=== PATIENT | female | born 1965 | race African-American/Black ===

== ENCOUNTER → 2017-01-02 | Outpatient (CLI) | payer OTHER ==
[~2017-01-02] MED LIST: SUPPLEMENTS; supplements
--- NOTE | 2017-01-02 15:26 | EKG ---
[facility] [address] [place] [address] Test Date: 2017-01-02 Test Time: 15:32:17 Pat Name: SOBEIDA FLANAGAN Department: Room: Gender: F Expedition Supervisor: MR ODELLB: 1965 Requested By: SUKHJINDER GREENWOOD Order Number: [id number] Reading MD: Wilbur Villagomez Measurements Intervals [place] Rate: 58 P: 51 MN: 132 QRS: 15 QRSD: 86 T: 20 QT: 396 QTc: 392 Interpretive Statements SINUS RHYTHM Electronically Signed On 01-03-2017 14:15:57 CDT by Wilbur Villagomez
[2017-01-02 15:45] LABS: BILIRUBIN,URINE NEGATIVE (NEG); GLUCOSE,URINE NEGATIVE (NEG); NITRITE,URINE NEGATIVE (NEG); PH,URINE 7.5; PROTEIN,URINE NEGATIVE (NEG-TRACE); UROBILINOGEN,URINE 0.2 mg/dL (0.2 mg/dL)
[2017-01-02 15:54] LABS: BACTERIA,URINE FEW /HPF (0-FEW); RBC,URINE 0 /HPF (0-2); SQUAMOUS EPITHELIAL CELL,UR FEW /LPF; WBC,URINE 0 /HPF (0-4)
[2017-01-02 16:09] LABS: ALBUMIN 3.9 g/dL (3.4-5.0); ALBUMIN/GLOBULIN RATIO 1.1 (1.0-1.7); CALCIUM 9.3 mg/dL (8.5-10.1); CREATININE 0.9 mg/dL (0.6-1.0); GFR 80.5; POTASSIUM 3.8 mmol/L (3.5-5.1); TOTAL BILIRUBIN 0.3 mg/dL (0.2-1.0); TOTAL PROTEIN 7.5 g/dL (6.4-8.2)
--- NOTE | 2017-01-03 09:28 | RAD ---
Chest, 2 views, 01/02/2017: History: Preop for hysterectomy The heart size and pulmonary vascularity are normal. No pulmonary infiltrates are seen. There is no evidence of pleural fluid. Surgical clips are projected over the left lower chest laterally. Minimal spurring is present in the spine. IMPRESSION: No acute cardiopulmonary abnormality is detected.
== END | disposition home or self-care (01) ==
LOC: SURGPAT 14:20
PROVIDERS: ATTEND Obstetrics & Gynecology
DX: Z01.818 Encounter for other preprocedural examination (principal)
CPT/HCPCS: 36415; 71020; 80053; 81001; 93005

== ENCOUNTER 2019-10-28 23:35 | Inpatient (IN) | payer OTHER ==
[~2019-10-28] VITALS: Ht 167.6 cm; Wt 85.7 kg
[2019-10-28 23:38] VITALS: BP 149/65
[2019-10-29] VITALS (12 sets, daily range): BP systolic 101–124; BP diastolic 52–68
--- NOTE | 2019-10-29 00:15 | NUR ---
ADMIT NOTE The patient, SOBEIDA FLANAGAN, 54 y/o, F admitted by ELIU DE LA ROSA III, DO, was given written information regarding hospital policies, unit procedures and contact persons. Patient arrived via EMS from [facility]. Patient afebrile, A&O, and VSS upon admission to unit. Patient orientated to room, admit packet reviewed and plan of care discussed. Patient's belongings were checked and left at bedside. MD notified of patient's arrival to floor and awaiting orders. Patient in bed, bed in lowest/locked position, and call light within reach; no other needs voiced at this time.
[2019-10-29] MEDS ORDERED: 0.9 % SODIUM CHLORIDE 10 ML DISP.SYRIN. IV PRN (00:30)
[2019-10-29] MEDS: IV NORMAL SALINE 1000ML BAG 1,000 ML IV SCH ×3 (00:58→20:21)
[2019-10-29] MEDS: ONDANSETRON PF 4 MG/2 ML VIAL. IV PRN (00:59)
[2019-10-29] MEDS: MORPHINE SULFATE 2 MG/ML VIAL. IV PRN ×6 (00:59→20:24)
[2019-10-29] MEDS ORDERED: [UNRECOGNIZED DRUG - OTHER] (02:52)
[2019-10-29] MEDS ORDERED: CREATINE (02:52)
[2019-10-29] MEDS ORDERED: TURM538C PO (02:52)
[2019-10-29] MEDS ORDERED: ACET325T9 PO (02:52)
[2019-10-29] MEDS ORDERED: Protein Supplement (02:52)
[2019-10-29] MEDS ORDERED: DULO30CA2 PO (02:52)
--- NOTE | 2019-10-29 07:58 | PDOC2 ---
CONSULT Date of Consult Date of Consult DATE: 10/29/19 TIME: 07:55 History of Present Illness Reason for Visit: The patient is a 54 year old female who was transferred from [facility] with suspected appendicitis. She states she noticed abdominal pain starting yesterday morning. The pain was located in the lower abdomen and is now in the RLQ. She reports associated nausea, vomiting, and no fevers. Her ER evaluation is consistent with appendicitis and she was transferred to [facility]. Past Medical History Past Medical History denies Past Surgical History Past Surgical History Csection, abdominoplasty Social History No Current Medications Current Medications Current Medications Sodium Chloride (Normal Saline Flush) 3 ml QSHIFT PRN IV AFTER MEDS AND BLOOD DRAWS Last administered on 10/29/19at 00:59; Start 10/29/19 at 00:30 Sodium Chloride 1,000 ml @ 100 mls/hr Q10H IV Last administered on 10/29/19at 00:58; Start 10/29/19 at 00:30 Ondansetron HCl (Zofran) 4 mg PRN Q6HRS PRN IV NAUSEA/VOMITING Last administered on 10/29/19at 00:59; Start 10/29/19 at 00:30 Morphine Sulfate (Morphine Sulfate) 2 mg PRN Q2HR PRN IV PAIN Last administered on 10/29/19at 04:51; Start 10/29/19 at 00:30 Active Scripts Active Reported Tylenol (Acetaminophen) 325 Mg Tablet 650 Mg PO PRN Q6HRS PRN [Protein Supplement] [Creatine Supplement] [BCAAs Supplement] Turmeric (Turmeric Root Extract) 538 Mg Capsule 538 Mg PO DAILY Cymbalta (Duloxetine Hcl) 30 Mg Capsule. 1 Cap PO HS [many supplements] [supplements] Allergies Allergies: Coded Allergies: meloxicam (Verified Allergy, Unknown, Swelling, 01/02/17) sulfamethoxazole (Verified Allergy, Unknown, Hives, 01/02/17) trimethoprim (Verified Allergy, Unknown, Hives, 01/02/17) ROS General: No: Chills, Night Sweats, Fatigue, Malaise, Appetite, Other PSYCHOLOGICAL ROS: No: Anxiety, Behavioral Disorder, Concentration difficultie, Decreased libido, Depression, Disorientation, Hallucinations, Hostility, Irritablity, Memory difficulties, Mood Swings, Obsessive thoughts, Physical abuse, Sexual abuse, Sleep disturbances, Suicidal ideation, Other Eyes: No Blurry vision, No Decreased vision, No Double vision, No Dry eyes, No Excessive tearing, No Eye Pain, No Itchy Eyes, No Loss of vision, No Photophobia, No Scotomata, No Uses contacts, No Uses glasses, No Other HEENT: No: Heacaches, Visual Changes, Hearing change, Nasal congestion, Nasal discharge, Oral lesions, Sinus pain, Sore Throat, Epistaxis, Sneezing, Snoring, Tinnitus, Vertigo, Vocal changes, Other ALLERGY AND IMMUNOLOGY: No: Hives, Insect Bite Sensitivity, Itchy/Watery Eyes, Nasal Congestion, Post Nasal Drip, Seasonal Allergies, Other Hematological and Lymphatic: No: Bleeding Problems, Blood Clots, Blood Transfusions, Brusing, Night Sweats, Pallor, Swollen Lymph Nodes, Other Respiratory: No: Cough, Hemoptysis, Orthopnea, Pleuritic Pain, Shortness of breath, SOB with excertion, Sputum Changes, Stridor, Tachypnea, Wheezing, Other Cardiovascular: No Chest Pain, No Palpitations, No Orthopnea, No Paroxysmal Noc. Dyspnea, No Edema, No Lt Headedness, No Other Gastrointestinal: Yes Vomiting, Yes Abdominal Pain Genitourinary: No Dysuria, No Frequency, No Incontinence, No Hematuria, No Retention, No Discharge, No Urgency, No Pain, No Flank Pain, No Other, No , No , No , No , No , No , No Musculoskeletal: No Gait Disturbance, No Joint Pain, No Joint Stiffness, No Joint Swelling, No Muscle Pain, No Muscular Weakness, No Pain In:, No Swelling In:, No Other Neurological: No Behavorial Changes, No Bowel/Bladder ControlChng, No Confusion, No Dizziness, No Gait Disturbance, No Headaches, No Impaired Coord/balance, No Memory Loss, No Numbness/Tingling, No Seizures, No Speech Problems, No Tremors, No Visual Changes, No Weakness, No Other Skin: No Dry Skin, No Eczema, No Hair Changes, No Lumps, No Mole Changes, No Mottling, No Nail Changes, No Pruritus, No Rash, No Skin Lesion Changes, No Other, No Acne Physical Exam General: Alert, Oriented X3, Cooperative HEENT: Atraumatic Lungs: Clear to auscultation Abdomen: Soft (tender with palpation in RLQ) Extremities: No clubbing, No cyanosis Skin: No rashes, No breakdown Neuro: Normal speech, Strength at 5/5 X4 ext Psych/Mental Status: Mental status NL Vitals VITALS Vital Signs Date Time Temp Pulse Resp B/P (MAP) Pulse Ox O2 Delivery O2 Flow Rate FiO2 10/29/19 07:00 98.4 87 18 116/67 (83) 96 Room Air 98.4 Labs Labs Laboratory Tests Test 10/29/19 01:05 SARS-CoV-2 Antigen (Rapid) Negative (NEGATIVE) Laboratory Tests Test 10/29/19 01:05 SARS-CoV-2 Antigen (Rapid) Negative (NEGATIVE) Assessment/Plan Assessment/Plan 54 year old female with abdominal pain, evaluation consistent with appendicitis. Recommend laparoscopic appendectomy. The details and risks of surgery were discussed. She understands and would like to proceed. KASHIF GARDNER MD Oct 29, 2019 07:58
[2019-10-29] MEDS ORDERED: PROPOFOL 10 MG/ML (20ML) VIAL. IV ONE (08:08)
[2019-10-29] MEDS ORDERED: MIDAZOLAM HCL/PF 2 MG/2 ML VIAL. ONE (08:08)
[2019-10-29] MEDS ORDERED: LIDOCAINE 2% PF 5 ML VIAL. ONE (08:08)
[2019-10-29] MEDS ORDERED: ROCURONIUM 50 MG/5 ML VIAL. ONE (08:08)
[2019-10-29] MEDS ORDERED: fentaNYL PF VIAL 250 MCG/5 ML VIAL ONE (08:09)
[2019-10-29] MEDS ORDERED: fentaNYL PF VIAL 100 MCG/2 ML VIAL ONE (08:24)
[2019-10-29] MEDS: fentaNYL PF VIAL 100 MCG/2 ML VIAL IVP PRN ×2 (08:39→10:50)
[2019-10-29] MEDS ORDERED: IV RINGERS,LACTATED 1000ML 1,000 ML IV SCH (08:57)
--- NOTE | 2019-10-29 08:58 | HP ---
ADMIT DATE: 10/29/2019 CHIEF COMPLAINT: Abdominal pain. HISTORY OF PRESENT ILLNESS: The patient is a pleasant 54-year-old female who presented to the OR with abdominal pain. She initially went to [facility]. They imaged her. She has appendicitis. She has now been transferred to our facility. We have consulted Dr. Bijan Webb and the patient is going for laparoscopic appendectomy later today. PAST MEDICAL HISTORY: Abdominoplasty and . ALLERGIES: MELOXICAM, SULFA, AND TRIMETHOPRIM. FAMILY HISTORY: Diabetes. SOCIAL HISTORY: She does not drink, smoke, or take drugs. MEDICATIONS: Reviewed, please refer to the MRAD. REVIEW OF SYSTEMS: GENERAL: No history of weight change, weakness or fevers. SKIN: No bruising, hair changes or rashes. EYES: No blurred, double or loss of vision. NOSE AND THROAT: No history of nosebleeds, hoarseness or sore throat. HEART: No history of palpitations, chest pain or shortness of breath on exertion. LUNGS: Denies cough, hemoptysis, wheezing or shortness of breath. GASTROINTESTINAL: She complains of abdominal pain. GENITOURINARY: No history of frequency, urgency, hesitancy or nocturia. NEUROLOGIC: Denies history of numbness, tingling, tremor or weakness. PSYCHIATRIC: No history of panic, anxiety or depression. ENDOCRINE: No history of heat or cold intolerance, polyuria or polydipsia. EXTREMITIES: Denies muscle weakness, joint pain, pain on walking or stiffness. PHYSICAL EXAMINATION: VITALS: Within normal limits and are stable. GENERAL: No apparent distress. Alert and oriented. HEENT: Normal cephalic atraumatic, external auditory canals are patent EYES: Extraocular muscles are intact, pupils are equally round and reactive to light and accommodation MUSCULOSKELETAL: Well developed, well nourished, good range of motion ENDOCRINE: No thyromegaly was palpated LYMPHATICS: No cervical chain or axillary nodes were noted HEMATOPOIETIC: No bruising NECK: Supple, no JVD, no thyromegaly was noted. LUNGS: Clear to auscultation in all lung arce without rhonchi or wheezing. HEART: RRR, S1, S2 present. Peripheral pulses intact, no obvious murmurs were noted. ABDOMEN: She has right lower quadrant tenderness with decreased bowel sounds. EXTREMITIES: Without any cyanosis, clubbing, or edema. Pedal pulses intact, Homans sign is negative. NEUROLOGIC: Normal speech, normal tone. A & O x3, moves all extremities, no obvious focal deficits. PSYCHIATRIC: Normal affect, normal mood. Stable. SKIN: No ulcerations or rashes, good skin turgor, no jaundice. VASCULAR: Good capillary refill, neurovascular bundle appears to be intact. ASSESSMENT AND PLAN: Appendicitis. The patient has been admitted, was given IV antibiotics, pain meds, IV fluids. We have consulted Dr. Webb. She is going to surgery later today. DVT prophylaxis. ELIU DE LA ROSA DO DR: LEFTY/heather JOB#: [id number] / [id number]
[2019-10-29] MEDS ORDERED: PROCHLORPERAZINE 10 MG/2 ML VIAL. IV PRN (09:00)
[2019-10-29] MEDS ORDERED: ONDANSETRON PF 4 MG/2 ML VIAL. IV PRN (09:00)
[2019-10-29] MEDS ORDERED: fentaNYL PF VIAL 100 MCG/2 ML VIAL IV PRN ×2 (09:00)
[2019-10-29] MEDS ORDERED: BUPIVACAINE-EPI 0.5%-1:200000 MPF 30 ML VIAL. ONE (09:03)
[2019-10-29] MEDS ORDERED: NEOSTIGMINE METHYLSULFATE 5 MG/5 ML SYRINGE. ONE (09:48)
[2019-10-29] MEDS ORDERED: GLYCOPYRROLATE 1 MG/5 ML VIAL. ONE (09:48)
--- NOTE | 2019-10-29 10:02 | NUR ---
SW following. Discussed with RN, pt from home, room air, NPO, COVID-9 negative. Pt having lap appy this morning. RN advised no SW needs at this time. SW will continue to follow should any discharge needs arise.
[2019-10-29] MEDS ORDERED: PHENYLEPHRINE in 0.9% NACL PF 1 MG/10 ML SYRINGE. IV ONE (10:04)
[2019-10-29] MEDS ORDERED: SEVOFLURANE 31 TO 60 MINUTES. IH ONE (10:27)
--- NOTE | 2019-10-29 10:56 | PDOC4 ---
Operative Note Operative Note Preoperative Diagnosis: Acute Appendicitis Postoperative Diagnosis: Perforated appendicitis Procedure: Laparoscopic appendectomy Surgeon: Jon Anesthesia: Gen. EBL: 10 mL Specimen: Appendix to pathology Drains: None Complications: None Indication: The patient is a 54 year old female who reported to the emergency department with abdominal pain. The evaluation is consistent with acute appendicitis. The patient was offered surgical treatment with a laparoscopic appendectomy. The risks of surgery were discussed which include bleeding, infection, visceral injury, pain, anesthetic risk, potential need for additional surgery or procedure. The patient understands and would like to proceed. Description: The patient was taken to the operating room and placed supine on the operating table. Gen. anesthesia was performed. The abdomen was prepped with ChloraPrep and draped in a standard surgical manner. A supraumbilical incision was made through which a veress needle was inserted and a pneumoperitoneum was created. A visualized 5 mm trocar was inserted and the laparoscope was introduced. In the left lower quadrant a 5 mm trocar was inserted. In the suprapubic region a 12 mm trocar was inserted. The appendix was identified and appeared inflamed consistent with acute appendicitis. With minimal manipulation the appendix showed complete degradation with contamination consistent with perforation. The mesoappendix was bluntly from the appendix. The mesoappendix was controlled using several clips and it was divided. The 5 mm LLQ trocar was exchanged with a 12 mm trocar. The appendix was then amputated off the cecum using an Endo ISAURA 45 stapling device. The appendix was then placed in an endoscopic bag and extracted at the suprapubic incision site. The fascia there was closed with 0 Vicryl and infiltrated with half percent Marcaine with epinephrine. The entire abdominal cavity was irrigated with sterile saline to clean any contamination. The RLQ was visualized and the staple line appeared well intact and hemostasis was good. No other abnormalities were identified grossly. The remaining ports were removed and the pneumoperitoneum was relieved. The skin at all incision sites was closed with 4-0 Monocryl. Steri-Strips and dressings were applied. The patient tolerated the procedure well and was sent to the recovery room in stable condition. At the end of the case all counts were correct. KASHIF GARDNER MD Oct 29, 2019 10:56
[2019-10-29] MEDS ORDERED: MORPHINE SULFATE 2 MG/ML VIAL. ONE (10:57)
[2019-10-29] MEDS ORDERED: PROCHLORPERAZINE 10 MG/2 ML VIAL. ONE (11:02)
[2019-10-29] MEDS ORDERED: HYDROmorphone 2 MG/ML VIAL ONE (11:07)
[2019-10-29] MEDS: HYDROmorphone 2 MG/ML VIAL IV PRN ×3 (11:10→11:45)
[2019-10-29] MEDS: PIPERACILLIN/TAZOBACTAM 3.375 GM in IV NORMAL SALINE 50ML 50 ML IV SCH ×2 (13:15→17:22)
[2019-10-29] MEDS: oxyCODONE/APAP 5/325 1 TAB TABLET PO PRN (17:24)
[2019-10-30] MEDS: oxyCODONE/APAP 5/325 1 TAB TABLET PO PRN ×4 (00:31→19:50)
[2019-10-30] MEDS: PIPERACILLIN/TAZOBACTAM 3.375 GM in IV NORMAL SALINE 50ML 50 ML IV SCH ×4 (00:31→17:40)
[2019-10-30 03:00] VITALS: BP 92/47
[2019-10-30] MEDS: MORPHINE SULFATE 2 MG/ML VIAL. IV PRN ×3 (05:56→17:43)
[2019-10-30] MEDS: IV NORMAL SALINE 1000ML BAG 1,000 ML IV SCH ×2 (06:15→14:36)
[2019-10-30 07:00] VITALS: BP 106/55
--- NOTE | 2019-10-30 09:11 | PDOC ---
PROGRESS NOTES Date of Service: DATE: 10/30/19 TIME: 09:10 Chief Complaint Chief Complaint ASSESSMENT AND PLAN: Appendicitis. pod # 1 MORBID OBESITY PLAN admitted, IV antibiotics, pain meds, IV fluids. consulted Dr. Webb. DVT prophylaxis. D/W RN History of Present Illness History of Present Illness HISTORY OF PRESENT ILLNESS: The patient is a pleasant 54-year-old female who presented to the OR with abdominal pain. She initially went to [facility]. They imaged her. She has appendicitis. She has now been transferred to our facility. We have consulted Dr. Bijan Webb PAST MEDICAL HISTORY: Abdominoplasty and . ALLERGIES: MELOXICAM, SULFA, AND TRIMETHOPRIM. FAMILY HISTORY: Diabetes. SOCIAL HISTORY: She does not drink, smoke, or take drugs. Vitals Vitals Vital Signs Date Time Temp Pulse Resp B/P (MAP) Pulse Ox O2 Delivery O2 Flow Rate FiO2 10/30/19 08:21 Room Air 10/30/19 07:00 98.4 82 18 106/55 (72) 90 2.0 98.4 Physical Exam Physical Exam DRESSING DRY, INTACT General: Alert, Oriented X3, Cooperative, No acute distress Heart: Regular rate, Normal S1, Normal S2 Lungs: Clear Abdomen: Normal bowel sounds, Soft (tender with palpation in RLQ) Extremities: No clubbing, No cyanosis, No edema Skin: No rashes, No breakdown Comment Review of Relevant I have reviewed the following items sienna (where applicable) has been applied. Labs Laboratory Tests Test 10/29/19 01:05 Coronavirus (PCR) Not detected (Not Detected) SARS-CoV-2 Antigen (Rapid) Negative (NEGATIVE) Medications Current Medications Sodium Chloride (Normal Saline Flush) 3 ml QSHIFT PRN IV AFTER MEDS AND BLOOD DRAWS Last administered on 10/29/19at 00:59; Start 10/29/19 at 00:30 Sodium Chloride 1,000 ml @ 100 mls/hr Q10H IV Last administered on 10/30/19at 06:15; Start 10/29/19 at 00:30 Ondansetron HCl (Zofran) 4 mg PRN Q6HRS PRN IV NAUSEA/VOMITING Last administered on 10/29/19at 00:59; Start 10/29/19 at 00:30 Morphine Sulfate (Morphine Sulfate) 2 mg PRN Q2HR PRN IV PAIN Last administered on 10/30/19at 05:56; Start 10/29/19 at 00:30 Propofol (Diprivan) 200 mg STK-MED ONCE IV ; Start 10/29/19 at 08:08; Stop 10/29/19 at 08:08; Status DC Lidocaine HCl (Lidocaine Pf 2% Vial) 5 ml STK-MED ONCE .ROUTE ; Start 10/29/19 at 08:08; Stop 10/29/19 at 08:08; Status DC Rocuronium [place] (Zemuron) 50 mg STK-MED ONCE .ROUTE ; Start 10/29/19 at 08:08; Stop 10/29/19 at 08:08; Status DC Midazolam HCl (Versed) 2 mg STK-MED ONCE .ROUTE ; Start 10/29/19 at 08:08; Stop 10/29/19 at 08:08; Status DC Fentanyl Citrate (Fentanyl 5ml Vial) 250 mcg STK-MED ONCE .ROUTE ; Start 10/29/19 at 08:09; Stop 10/29/19 at 08:10; Status DC Fentanyl Citrate (Fentanyl 2ml Vial) 100 mcg STK-MED ONCE .ROUTE ; Start 10/29/19 at 08:24; Stop 10/29/19 at 08:24; Status DC Fentanyl Citrate (Fentanyl 2ml Vial) 50 mcg PACU PRN PRN IVP PAIN Last administered on 10/29/19at 10:50; Start 10/29/19 at 08:30; Stop 10/29/19 at 20:00; Status DC Ondansetron HCl (Zofran) 4 mg PRN Q6HRS PRN IV NAUSEA/VOMITING; Start 10/29/19 at 09:00; Stop 10/30/19 at 08:59; Status DC Fentanyl Citrate (Fentanyl 2ml Vial) 25 mcg PRN Q5MIN PRN IV MILD PAIN 1-3; Start 10/29/19 at 09:00; Stop 10/30/19 at 08:59; Status DC Fentanyl Citrate (Fentanyl 2ml Vial) 50 mcg PRN Q5MIN PRN IV MODERATE TO SEVERE PAIN; Start 10/29/19 at 09:00; Stop 10/30/19 at 08:59; Status DC Morphine Sulfate (Morphine Sulfate) 1 mg PRN Q10MIN PRN IV SEVERE PAIN 7-10 Last administered on 10/29/19at 11:20; Start 10/29/19 at 09:00; Stop 10/30/19 at 08:59; Status DC Ringer's Solution 1,000 ml @ 30 mls/hr Q24H IV ; Start 10/29/19 at 08:57; Stop 10/29/19 at 20:56; Status DC Hydromorphone HCl (Dilaudid) 0.5 mg PRN Q10MIN PRN IV SEV PAIN, Second choice Last administered on 10/29/19at 11:45; Start 10/29/19 at 09:00; Stop 10/30/19 at 08:59; Status DC Prochlorperazine Edisylate (Compazine) 5 mg PACU PRN PRN IV NAUSEA, MRX1 Last administered on 10/29/19at 10:55; Start 10/29/19 at 09:00; Stop 10/30/19 at 08:59; Status DC Cefazolin Sodium/ Dextrose 50 ml @ 100 mls/hr 1X ONCE IV Last administered on 10/29/19at 09:30; Start 10/29/19 at 09:00; Stop 10/29/19 at 09:29; Status DC Bupivacaine HCl/ Epinephrine Bitart (Sensorcain-Epi 0.5%-1:977338 Mpf) 30 ml STK-MED ONCE .ROUTE Last administered on 10/29/19at 09:42; Start 10/29/19 at 09:03; Stop 10/29/19 at 09:03; Status DC Neostigmine [place] (Neostigmine Methylsulfate) 5 mg STK-MED ONCE .ROUTE ; Start 10/29/19 at 09:48; Stop 10/29/19 at 09:48; Status DC Glycopyrrolate (Robinul) 1 mg STK-MED ONCE .ROUTE ; Start 10/29/19 at 09:48; Stop 10/29/19 at 09:48; Status DC Phenylephrine HCl (PHENYLEPHRINE in 0.9% NACL PF) 1 mg STK-MED ONCE IV ; Start 10/29/19 at 10:04; Stop 10/29/19 at 10:05; Status DC Sevoflurane (Ultane) 30 ml STK-MED ONCE IH ; Start 10/29/19 at 10:27; Stop 10/29/19 at 10:28; Status DC Oxycodone/ Acetaminophen (Percocet 5/325) 1 tab PRN Q4HRS PRN PO MODERATE PAIN; Start 10/29/19 at 11:00 Morphine Sulfate (Morphine Sulfate) 2 mg STK-MED ONCE .ROUTE ; Start 10/29/19 at 10:57; Stop 10/29/19 at 10:57; Status DC Piperacillin Sod/ Tazobactam Sod 3.375 gm/Sodium Chloride 50 ml @ 100 mls/hr Q6HRS IV Last administered on 10/30/19at 05:54; Start 10/29/19 at 12:00 Oxycodone/ Acetaminophen (Percocet 5/325) 2 tab PRN Q4HRS PRN PO SEVERE PAIN Last administered on 10/30/19at 08:16; Start 10/29/19 at 11:15 Prochlorperazine Edisylate (Compazine) 10 mg STK-MED ONCE .ROUTE ; Start 10/29/19 at 11:02; Stop 10/29/19 at 11:02; Status DC Hydromorphone HCl (Dilaudid) 2 mg STK-MED ONCE .ROUTE ; Start 10/29/19 at 11:07; Stop 10/29/19 at 11:07; Status DC Active Scripts Active Reported Tylenol (Acetaminophen) 325 Mg Tablet 650 Mg PO PRN Q6HRS PRN [Protein Supplement] [Creatine Supplement] [BCAAs Supplement] Turmeric (Turmeric Root Extract) 538 Mg Capsule 538 Mg PO DAILY Cymbalta (Duloxetine Hcl) 30 Mg Capsule. 1 Cap PO HS [many supplements] [supplements] Vitals/I & O Vital Sign - Last 24 Hours 10/29/19 10/29/19 10/29/19 10/29/19 10:43 10:43 10:50 11:00 Temp 98.8 98.8 Pulse 69 Resp 16 16 16 B/P (MAP) 109/55 Pulse Ox 96 95 99 O2 Delivery Mask Simple Mask Simple Mask Simple Mask O2 Flow Rate 10 10 10.0 10.0 10/29/19 10/29/19 10/29/19 10/29/19 11:00 11:10 11:14 11:20 Temp 98.8 98.8 98.8 98.8 Pulse 69 66 Resp 16 14 16 12 B/P (MAP) 98/62 106/55 Pulse Ox 100 95 99 98 O2 Delivery Simple Mask Simple Mask Nasal Cannula O2 Flow Rate 5 5.0 5.0 3.0 10/29/19 10/29/19 10/29/19 10/29/19 11:29 11:30 11:44 11:45 Temp 98.8 98.8 98.8 98.8 Pulse 67 75 Resp 16 13 16 14 B/P (MAP) 107/55 107/53 Pulse Ox 98 98 98 97 O2 Delivery Simple Mask Nasal Cannula Nasal Cannula Nasal Cannula O2 Flow Rate 3.0 3.0 3.0 3.0 10/29/19 10/29/19 10/29/19 10/29/19 12:15 12:30 12:45 13:00 Temp 98.0 97.7 98.4 98.0 98.0 97.7 98.4 98.0 Pulse 75 79 85 83 Resp 18 18 18 18 B/P (MAP) 101/57 (72) 106/57 (73) 106/56 (73) 106/60 (75) Pulse Ox 98 98 98 99 O2 Delivery Room Air Room Air Room Air Room Air 10/29/19 10/29/19 10/29/19 10/29/19 13:30 14:02 15:00 16:00 Temp 98.9 98.9 98.9 98.9 98.9 98.9 Pulse 80 83 84 82 Resp 18 18 18 18 B/P (MAP) 109/61 (77) 106/59 (75) 105/68 (80) 101/57 (72) Pulse Ox 99 98 99 99 O2 Delivery Room Air Room Air Room Air Room Air 10/29/19 10/29/19 10/29/19 10/29/19 16:49 17:19 17:24 18:30 O2 Delivery Nasal Cannula Room Air Room Air Room Air O2 Flow Rate 2.0 10/29/19 10/29/19 10/29/19 10/29/19 19:00 20:15 20:24 21:15 Temp 99.0 99.0 Pulse 86 Resp 19 B/P (MAP) 106/60 (75) Pulse Ox 92 O2 Delivery Room Air Room Air Room Air Room Air 10/29/19 10/30/19 10/30/1927/20 23:00 00:31 03:00 05:56 Temp 98.8 98.5 98.8 98.5 Pulse 82 74 Resp 19 19 B/P (MAP) 104/52 (69) 92/47 (62) Pulse Ox 93 96 O2 Delivery Nasal Cannula Nasal Cannula Nasal Cannula Nasal Cannula O2 Flow Rate 2.0 2.0 2.0 2.0 10/30/19 10/30/19 10/30/19 10/30/19 06:26 07:00 08:16 08:21 Temp 98.4 98.4 Pulse 82 Resp 18 B/P (MAP) 106/55 (72) Pulse Ox 90 O2 Delivery Room Air Nasal Cannula Room Air Room Air O2 Flow Rate 2.0 Intake and Output 10/29/19 10/29/19 10/30/19 15:00 23:00 07:00 Intake Total 1700 ml 50 ml 0 ml Output Total 120 ml Balance 1580 ml 50 ml 0 ml Justicifation of Admission Dx: Justifications for Admission: Justification of Admission Dx: Yes Comments: ACUTE APPENDICITIS MASHA ARTEAGA MD Oct 30, 2019 09:11
--- NOTE | 2019-10-30 10:18 | NUR ---
SW following. Discussed with RN, clear liquid diet, room air, IV zosyn. RN advised no SW needs, anticipates possible discharge home today. SW will continue to follow should any discharge needs arise.
[2019-10-30 11:00] VITALS: BP 106/56
[2019-10-30 12:01] LABS: BASO % 0 % (0-3); EOS % 0 % (0-3); HEMATOCRIT 35.3 % (36.0-47.0); HEMOGLOBIN 11.9 g/dL (12.0-15.5); LYMPH # 0.8 x10^3/uL (1.0-4.8); LYMPH % 11 % (24-48); MEAN CORPUSCULAR HEMOGLOBIN 29 pg (25-35); MEAN CORPUSCULAR HGB CONC 34 g/dL (31-37); MEAN CORPUSCULAR VOLUME 87 fL (79-100); MONO # 0.5 x10^3/uL (0.0-1.1); MONO % 7 % (0-9); NEUT # 6.1 x10^3/uL (1.8-7.7); NEUT % 81 % (31-73); PLATELET COUNT 260 x10^3/uL (140-400); RED BLOOD COUNT 4.06 x10^6/uL (3.50-5.40); RED CELL DISTRIBUTION WIDTH 13.7 % (11.5-14.5); WHITE BLOOD COUNT 7.5 x10^3/uL (4.0-11.0)
[2019-10-30 12:19] LABS: ALBUMIN 2.6 g/dL (3.4-5.0); ALBUMIN/GLOBULIN RATIO 0.7 (1.0-1.7); CALCIUM 8.1 mg/dL (8.5-10.1); CREATININE 1.2 mg/dL (0.6-1.0); GFR 57.1; POTASSIUM 3.4 mmol/L (3.5-5.1); TOTAL BILIRUBIN 0.4 mg/dL (0.2-1.0); TOTAL PROTEIN 6.5 g/dL (6.4-8.2)
--- NOTE | 2019-10-30 13:11 | PDOC ---
PROGRESS NOTES Date of Service DATE: 10/30/19 TIME: 13:10 Subjective Subjective feeling "better", taking some liquids, but feeling a bit bloated, no flatus Objective Objective Vital Signs Date Time Temp Pulse Resp B/P (MAP) Pulse Ox O2 Delivery O2 Flow Rate FiO2 10/30/19 12:24 Room Air 10/30/19 11:00 99.9 93 18 106/56 (73) 90 2.0 99.9 Intake and Output 10/30/19 07:00 Intake Total 1750 ml Output Total 120 ml Balance 1630 ml Intake Oral 150 ml IV Total 1600 ml Output Urine Total 110 ml Estimated Blood Loss 10 ml # Voids 1 Physical Exam Abdomen: Soft Assessment Assessment POD 1 Plan Plan of Care Plan to go slow with PO, would expect some degree of ileus; continue antibiotics Comment Review of Relevant I have reviewed the following items sienna (where applicable) has been applied. Labs Laboratory Tests Test 10/29/19 01:05 10/30/19 11:15 Coronavirus (PCR) Not detected (Not Detected) SARS-CoV-2 Antigen (Rapid) Negative (NEGATIVE) White Blood Count 7.5 x10^3/uL (4.0-11.0) Red Blood Count 4.06 x10^6/uL (3.50-5.40) Hemoglobin 11.9 g/dL (12.0-15.5) Hematocrit 35.3 % (36.0-47.0) Mean Corpuscular Volume 87 fL (79-100) Mean Corpuscular Hemoglobin 29 pg (25-35) Mean Corpuscular Hemoglobin Concent 34 g/dL (31-37) Red Cell Distribution Width 13.7 % (11.5-14.5) Platelet Count 260 x10^3/uL (140-400) Neutrophils (%) (Auto) 81 % (31-73) Lymphocytes (%) (Auto) 11 % (24-48) Monocytes (%) (Auto) 7 % (0-9) Eosinophils (%) (Auto) 0 % (0-3) Basophils (%) (Auto) 0 % (0-3) Neutrophils # (Auto) 6.1 x10^3/uL (1.8-7.7) Lymphocytes # (Auto) 0.8 x10^3/uL (1.0-4.8) Monocytes # (Auto) 0.5 x10^3/uL (0.0-1.1) Eosinophils # (Auto) 0.0 x10^3/uL (0.0-0.7) Basophils # (Auto) 0.0 x10^3/uL (0.0-0.2) Sodium Level 138 mmol/L (136-145) Potassium Level 3.4 mmol/L (3.5-5.1) Chloride Level 103 mmol/L (98-107) Carbon Dioxide Level 28 mmol/L (21-32) Anion Gap 7 (6-14) Blood Urea Nitrogen 12 mg/dL (7-20) Creatinine 1.2 mg/dL (0.6-1.0) Estimated GFR (Cockcroft-Gault) 57.1 BUN/Creatinine Ratio 10 (6-20) Glucose Level 112 mg/dL (70-99) Calcium Level 8.1 mg/dL (8.5-10.1) Total Bilirubin 0.4 mg/dL (0.2-1.0) Aspartate Amino Transf (AST/SGOT) 16 U/L (15-37) Alanine Aminotransferase (ALT/SGPT) 23 U/L (14-59) Alkaline Phosphatase 56 U/L (46-116) Total Protein 6.5 g/dL (6.4-8.2) Albumin 2.6 g/dL (3.4-5.0) Albumin/Globulin Ratio 0.7 (1.0-1.7) Laboratory Tests Test 10/30/19 11:15 White Blood Count 7.5 x10^3/uL (4.0-11.0) Red Blood Count 4.06 x10^6/uL (3.50-5.40) Hemoglobin 11.9 g/dL (12.0-15.5) Hematocrit 35.3 % (36.0-47.0) Mean Corpuscular Volume 87 fL (79-100) Mean Corpuscular Hemoglobin 29 pg (25-35) Mean Corpuscular Hemoglobin Concent 34 g/dL (31-37) Red Cell Distribution Width 13.7 % (11.5-14.5) Platelet Count 260 x10^3/uL (140-400) Neutrophils (%) (Auto) 81 % (31-73) Lymphocytes (%) (Auto) 11 % (24-48) Monocytes (%) (Auto) 7 % (0-9) Eosinophils (%) (Auto) 0 % (0-3) Basophils (%) (Auto) 0 % (0-3) Neutrophils # (Auto) 6.1 x10^3/uL (1.8-7.7) Lymphocytes # (Auto) 0.8 x10^3/uL (1.0-4.8) Monocytes # (Auto) 0.5 x10^3/uL (0.0-1.1) Eosinophils # (Auto) 0.0 x10^3/uL (0.0-0.7) Basophils # (Auto) 0.0 x10^3/uL (0.0-0.2) Sodium Level 138 mmol/L (136-145) Potassium Level 3.4 mmol/L (3.5-5.1) Chloride Level 103 mmol/L (98-107) Carbon Dioxide Level 28 mmol/L (21-32) Anion Gap 7 (6-14) Blood Urea Nitrogen 12 mg/dL (7-20) Creatinine 1.2 mg/dL (0.6-1.0) Estimated GFR (Cockcroft-Gault) 57.1 BUN/Creatinine Ratio 10 (6-20) Glucose Level 112 mg/dL (70-99) Calcium Level 8.1 mg/dL (8.5-10.1) Total Bilirubin 0.4 mg/dL (0.2-1.0) Aspartate Amino Transf (AST/SGOT) 16 U/L (15-37) Alanine Aminotransferase (ALT/SGPT) 23 U/L (14-59) Alkaline Phosphatase 56 U/L (46-116) Total Protein 6.5 g/dL (6.4-8.2) Albumin 2.6 g/dL (3.4-5.0) Albumin/Globulin Ratio 0.7 (1.0-1.7) Medications Current Medications Sodium Chloride (Normal Saline Flush) 3 ml QSHIFT PRN IV AFTER MEDS AND BLOOD DRAWS Last administered on 10/29/19at 00:59; Start 10/29/19 at 00:30 Sodium Chloride 1,000 ml @ 100 mls/hr Q10H IV Last administered on 10/30/19at 06:15; Start 10/29/19 at 00:30 Ondansetron HCl (Zofran) 4 mg PRN Q6HRS PRN IV NAUSEA/VOMITING Last administered on 10/29/19at 00:59; Start 10/29/19 at 00:30 Morphine Sulfate (Morphine Sulfate) 2 mg PRN Q2HR PRN IV PAIN Last administered on 10/30/19at 05:56; Start 10/29/19 at 00:30 Propofol (Diprivan) 200 mg STK-MED ONCE IV ; Start 10/29/19 at 08:08; Stop 10/29/19 at 08:08; Status DC Lidocaine HCl (Lidocaine Pf 2% Vial) 5 ml STK-MED ONCE .ROUTE ; Start 10/29/19 at 08:08; Stop 10/29/19 at 08:08; Status DC Rocuronium Prichard (Zemuron) 50 mg STK-MED ONCE .ROUTE ; Start 10/29/19 at 08:08; Stop 10/29/19 at 08:08; Status DC Midazolam HCl (Versed) 2 mg STK-MED ONCE .ROUTE ; Start 10/29/19 at 08:08; Stop 10/29/19 at 08:08; Status DC Fentanyl Citrate (Fentanyl 5ml Vial) 250 mcg STK-MED ONCE .ROUTE ; Start 10/29/19 at 08:09; Stop 10/29/19 at 08:10; Status DC Fentanyl Citrate (Fentanyl 2ml Vial) 100 mcg STK-MED ONCE .ROUTE ; Start 10/29/19 at 08:24; Stop 10/29/19 at 08:24; Status DC Fentanyl Citrate (Fentanyl 2ml Vial) 50 mcg PACU PRN PRN IVP PAIN Last administered on 10/29/19at 10:50; Start 10/29/19 at 08:30; Stop 10/29/19 at 20:00; Status DC Ondansetron HCl (Zofran) 4 mg PRN Q6HRS PRN IV NAUSEA/VOMITING; Start 10/29/19 at 09:00; Stop 10/30/19 at 08:59; Status DC Fentanyl Citrate (Fentanyl 2ml Vial) 25 mcg PRN Q5MIN PRN IV MILD PAIN 1-3; Start 10/29/19 at 09:00; Stop 10/30/19 at 08:59; Status DC Fentanyl Citrate (Fentanyl 2ml Vial) 50 mcg PRN Q5MIN PRN IV MODERATE TO SEVERE PAIN; Start 10/29/19 at 09:00; Stop 10/30/19 at 08:59; Status DC Morphine Sulfate (Morphine Sulfate) 1 mg PRN Q10MIN PRN IV SEVERE PAIN 7-10 Last administered on 10/29/19at 11:20; Start 10/29/19 at 09:00; Stop 10/30/19 at 08:59; Status DC Ringer's Solution 1,000 ml @ 30 mls/hr Q24H IV ; Start 10/29/19 at 08:57; Stop 10/29/19 at 20:56; Status DC Hydromorphone HCl (Dilaudid) 0.5 mg PRN Q10MIN PRN IV SEV PAIN, Second choice Last administered on 10/29/19at 11:45; Start 10/29/19 at 09:00; Stop 10/30/19 at 08:59; Status DC Prochlorperazine Edisylate (Compazine) 5 mg PACU PRN PRN IV NAUSEA, MRX1 Last administered on 10/29/19at 10:55; Start 10/29/19 at 09:00; Stop 10/30/19 at 08:59; Status DC Cefazolin Sodium/ Dextrose 50 ml @ 100 mls/hr 1X ONCE IV Last administered on 10/29/19at 09:30; Start 10/29/19 at 09:00; Stop 10/29/19 at 09:29; Status DC Bupivacaine HCl/ Epinephrine Bitart (Sensorcain-Epi 0.5%-1:[id number] Mpf) 30 ml STK-MED ONCE .ROUTE Last administered on 10/29/19at 09:42; Start 10/29/19 at 09:03; Stop 10/29/19 at 09:03; Status DC Neostigmine Prichard (Neostigmine Methylsulfate) 5 mg STK-MED ONCE .ROUTE ; Start 10/29/19 at 09:48; Stop 10/29/19 at 09:48; Status DC Glycopyrrolate (Robinul) 1 mg STK-MED ONCE .ROUTE ; Start 10/29/19 at 09:48; Stop 10/29/19 at 09:48; Status DC Phenylephrine HCl (PHENYLEPHRINE in 0.9% NACL PF) 1 mg STK-MED ONCE IV ; Start 10/29/19 at 10:04; Stop 10/29/19 at 10:05; Status DC Sevoflurane (Ultane) 30 ml STK-MED ONCE IH ; Start 10/29/19 at 10:27; Stop 10/29/19 at 10:28; Status DC Oxycodone/ Acetaminophen (Percocet 5/325) 1 tab PRN Q4HRS PRN PO MODERATE PAIN; Start 10/29/19 at 11:00 Morphine Sulfate (Morphine Sulfate) 2 mg STK-MED ONCE .ROUTE ; Start 10/29/19 at 10:57; Stop 10/29/19 at 10:57; Status DC Piperacillin Sod/ Tazobactam Sod 3.375 gm/Sodium Chloride 50 ml @ 100 mls/hr Q6HRS IV Last administered on 10/30/19at 12:22; Start 10/29/19 at 12:00 Oxycodone/ Acetaminophen (Percocet 5/325) 2 tab PRN Q4HRS PRN PO SEVERE PAIN Last administered on 10/30/19at 12:24; Start 10/29/19 at 11:15 Prochlorperazine Edisylate (Compazine) 10 mg STK-MED ONCE .ROUTE ; Start 10/29/19 at 11:02; Stop 10/29/19 at 11:02; Status DC Hydromorphone HCl (Dilaudid) 2 mg STK-MED ONCE .ROUTE ; Start 10/29/19 at 11:07; Stop 10/29/19 at 11:07; Status DC Active Scripts Active Reported Tylenol (Acetaminophen) 325 Mg Tablet 650 Mg PO PRN Q6HRS PRN [Protein Supplement] [Creatine Supplement] [BCAAs Supplement] Turmeric (Turmeric Root Extract) 538 Mg Capsule 538 Mg PO DAILY Cymbalta (Duloxetine Hcl) 30 Mg Capsule. 1 Cap PO HS [many supplements] [supplements] Vitals/I & O Vital Sign - Last 24 Hours 10/29/19 10/29/19 10/29/19 10/29/19 13:30 14:02 15:00 16:00 Temp 98.9 98.9 98.9 98.9 98.9 98.9 Pulse 80 83 84 82 Resp 18 18 18 18 B/P (MAP) 109/61 (77) 106/59 (75) 105/68 (80) 101/57 (72) Pulse Ox 99 98 99 99 O2 Delivery Room Air Room Air Room Air Room Air 10/29/19 10/29/19 10/29/19 10/29/19 16:49 17:19 17:24 18:30 O2 Delivery Nasal Cannula Room Air Room Air Room Air O2 Flow Rate 2.0 10/29/19 10/29/19 10/29/19 10/29/19 19:00 20:15 20:24 21:15 Temp 99.0 99.0 Pulse 86 Resp 19 B/P (MAP) 106/60 (75) Pulse Ox 92 O2 Delivery Room Air Room Air Room Air Room Air 10/29/19 10/30/19 10/30/19 10/30/19 23:00 00:31 03:00 05:56 Temp 98.8 98.5 98.8 98.5 Pulse 82 74 Resp 19 19 B/P (MAP) 104/52 (69) 92/47 (62) Pulse Ox 93 96 O2 Delivery Nasal Cannula Nasal Cannula Nasal Cannula Nasal Cannula O2 Flow Rate 2.0 2.0 2.0 2.0 10/30/19 10/30/19 10/30/19 10/30/19 06:26 07:00 08:16 08:21 Temp 98.4 98.4 Pulse 82 Resp 18 B/P (MAP) 106/55 (72) Pulse Ox 90 O2 Delivery Room Air Nasal Cannula Room Air Room Air O2 Flow Rate 2.0 10/30/19 10/30/19 10/30/19 09:17 11:00 12:24 Temp 99.9 99.9 Pulse 93 Resp 18 B/P (MAP) 106/56 (73) Pulse Ox 90 O2 Delivery Room Air Nasal Cannula Room Air O2 Flow Rate 2.0 Intake and Output 10/29/19 10/29/19 10/30/19 15:00 23:00 07:00 Intake Total 1700 ml 50 ml 0 ml Output Total 120 ml Balance 1580 ml 50 ml 0 ml Justifications for Admission Other Justification KASHIF GARDNER MD Oct 30, 2019 13:11
[2019-10-30 15:00] VITALS: BP 112/62
[2019-10-30 19:35] VITALS: BP 119/61
[2019-10-30] MEDS: LACTOBACILLUS RHAMNOSUS GG 1 CAPSULE. PO SCH (21:40)
[2019-10-30 23:28] VITALS: BP 118/61
[2019-10-31] MEDS: PIPERACILLIN/TAZOBACTAM 3.375 GM in IV NORMAL SALINE 50ML 50 ML IV SCH ×4 (00:17→18:29)
[2019-10-31] MEDS: IV NORMAL SALINE 1000ML BAG 1,000 ML IV SCH ×3 (02:14→18:30)
[2019-10-31] MEDS: MORPHINE SULFATE 2 MG/ML VIAL. IV PRN ×3 (02:14→10:04)
[2019-10-31 03:00] VITALS: BP 115/71
[2019-10-31] MEDS: ONDANSETRON PF 4 MG/2 ML VIAL. IV PRN (05:53)
[2019-10-31] MEDS: oxyCODONE/APAP 5/325 1 TAB TABLET PO PRN (05:54)
[2019-10-31] MEDS ORDERED: POLYETHYLENE GLYCOL 3350 17 GM PACKET. PO PRN (06:45)
[2019-10-31] MEDS ORDERED: SENNOSIDES/DOCUSATE 8.6/50MG TABLET. PO PRN (06:45)
[2019-10-31 07:00] VITALS: BP 138/84
[2019-10-31] MEDS: LACTOBACILLUS RHAMNOSUS GG 1 CAPSULE. PO SCH ×2 (07:22→20:50)
[2019-10-31] MEDS ORDERED: BISACODYL 10 MG SUPP.RECT. PR ONE (08:00)
--- NOTE | 2019-10-31 08:24 | PDOC ---
SURGICAL PROGRESS NOTE DATE: 10/31/19 TIME: 08:22 Subjective Patient describes feeling full bloated and sore in the abdomen denies passing any flatus Vital Signs Vital Signs Date Time Temp Pulse Resp B/P (MAP) Pulse Ox O2 Delivery O2 Flow Rate FiO2 10/31/19 07:32 Room Air 10/31/19 07:00 97.9 105 18 138/84 (102) 88 97.9 10/30/19 15:00 2.0 I&O Intake and Output 10/31/19 07:00 Intake Total 800 ml Balance 800 ml Intake Oral 800 ml # Voids 2 PATIENT HAS A YEBOAH: No General: Alert, Oriented X3, Cooperative, mild distress Abdomen: Normal bowel sounds, Soft, Other (Mildly distended diffuse incisional tenderness) Labs Laboratory Tests Test 10/30/19 11:15 White Blood Count 7.5 x10^3/uL (4.0-11.0) Red Blood Count 4.06 x10^6/uL (3.50-5.40) Hemoglobin 11.9 g/dL (12.0-15.5) Hematocrit 35.3 % (36.0-47.0) Mean Corpuscular Volume 87 fL (79-100) Mean Corpuscular Hemoglobin 29 pg (25-35) Mean Corpuscular Hemoglobin Concent 34 g/dL (31-37) Red Cell Distribution Width 13.7 % (11.5-14.5) Platelet Count 260 x10^3/uL (140-400) Neutrophils (%) (Auto) 81 % (31-73) Lymphocytes (%) (Auto) 11 % (24-48) Monocytes (%) (Auto) 7 % (0-9) Eosinophils (%) (Auto) 0 % (0-3) Basophils (%) (Auto) 0 % (0-3) Neutrophils # (Auto) 6.1 x10^3/uL (1.8-7.7) Lymphocytes # (Auto) 0.8 x10^3/uL (1.0-4.8) Monocytes # (Auto) 0.5 x10^3/uL (0.0-1.1) Eosinophils # (Auto) 0.0 x10^3/uL (0.0-0.7) Basophils # (Auto) 0.0 x10^3/uL (0.0-0.2) Sodium Level 138 mmol/L (136-145) Potassium Level 3.4 mmol/L (3.5-5.1) Chloride Level 103 mmol/L (98-107) Carbon Dioxide Level 28 mmol/L (21-32) Anion Gap 7 (6-14) Blood Urea Nitrogen 12 mg/dL (7-20) Creatinine 1.2 mg/dL (0.6-1.0) Estimated GFR (Cockcroft-Gault) 57.1 BUN/Creatinine Ratio 10 (6-20) Glucose Level 112 mg/dL (70-99) Calcium Level 8.1 mg/dL (8.5-10.1) Total Bilirubin 0.4 mg/dL (0.2-1.0) Aspartate Amino Transf (AST/SGOT) 16 U/L (15-37) Alanine Aminotransferase (ALT/SGPT) 23 U/L (14-59) Alkaline Phosphatase 56 U/L (46-116) Total Protein 6.5 g/dL (6.4-8.2) Albumin 2.6 g/dL (3.4-5.0) Albumin/Globulin Ratio 0.7 (1.0-1.7) Laboratory Tests Test 10/30/19 11:15 White Blood Count 7.5 x10^3/uL (4.0-11.0) Red Blood Count 4.06 x10^6/uL (3.50-5.40) Hemoglobin 11.9 g/dL (12.0-15.5) Hematocrit 35.3 % (36.0-47.0) Mean Corpuscular Volume 87 fL (79-100) Mean Corpuscular Hemoglobin 29 pg (25-35) Mean Corpuscular Hemoglobin Concent 34 g/dL (31-37) Red Cell Distribution Width 13.7 % (11.5-14.5) Platelet Count 260 x10^3/uL (140-400) Neutrophils (%) (Auto) 81 % (31-73) Lymphocytes (%) (Auto) 11 % (24-48) Monocytes (%) (Auto) 7 % (0-9) Eosinophils (%) (Auto) 0 % (0-3) Basophils (%) (Auto) 0 % (0-3) Neutrophils # (Auto) 6.1 x10^3/uL (1.8-7.7) Lymphocytes # (Auto) 0.8 x10^3/uL (1.0-4.8) Monocytes # (Auto) 0.5 x10^3/uL (0.0-1.1) Eosinophils # (Auto) 0.0 x10^3/uL (0.0-0.7) Basophils # (Auto) 0.0 x10^3/uL (0.0-0.2) Sodium Level 138 mmol/L (136-145) Potassium Level 3.4 mmol/L (3.5-5.1) Chloride Level 103 mmol/L (98-107) Carbon Dioxide Level 28 mmol/L (21-32) Anion Gap 7 (6-14) Blood Urea Nitrogen 12 mg/dL (7-20) Creatinine 1.2 mg/dL (0.6-1.0) Estimated GFR (Cockcroft-Gault) 57.1 BUN/Creatinine Ratio 10 (6-20) Glucose Level 112 mg/dL (70-99) Calcium Level 8.1 mg/dL (8.5-10.1) Total Bilirubin 0.4 mg/dL (0.2-1.0) Aspartate Amino Transf (AST/SGOT) 16 U/L (15-37) Alanine Aminotransferase (ALT/SGPT) 23 U/L (14-59) Alkaline Phosphatase 56 U/L (46-116) Total Protein 6.5 g/dL (6.4-8.2) Albumin 2.6 g/dL (3.4-5.0) Albumin/Globulin Ratio 0.7 (1.0-1.7) Assessment/Plan Status post laparoscopic appendectomy for perforated appendicitis bowel function slow to return Patient states that she has history with constipation usually takes milk of magnesia quite frequently will try Dulcolax suppository Justicifation of Admission Dx: Justifications for Admission: Justification of Admission Dx: Yes MASHA PHAM MD Oct 31, 2019 08:24
--- NOTE | 2019-10-31 09:44 | PDOC ---
PROGRESS NOTES Date of Service: DATE: 10/31/19 TIME: 09:44 Chief Complaint Chief Complaint ASSESSMENT AND PLAN: Appendicitis., ruptured pod # 2 MORBID OBESITY sepsis PLAN admitted, IV antibiotics, pain meds, IV fluids. consulted Dr. Webb. DVT prophylaxis. D/W RN will be dpoa History of Present Illness History of Present Illness HISTORY OF PRESENT ILLNESS: The patient is a pleasant 54-year-old female who presented to the OR with abdominal pain. She initially went to [facility]. They imaged her. She has appendicitis. She has now been transferred to our facility. We have consulted Dr. Bijan Webb PAST MEDICAL HISTORY: Abdominoplasty and . ALLERGIES: MELOXICAM, SULFA, AND TRIMETHOPRIM. FAMILY HISTORY: Diabetes. SOCIAL HISTORY: She does not drink, smoke, or take drugs. Vitals Vitals Vital Signs Date Time Temp Pulse Resp B/P (MAP) Pulse Ox O2 Delivery O2 Flow Rate FiO2 10/31/19 07:32 Room Air 10/31/19 07:00 97.9 105 18 138/84 (102) 88 97.9 10/30/19 15:00 2.0 Physical Exam Physical Exam DRESSING DRY, INTACT General: Alert, Oriented X3, Cooperative, mild distress Heart: Regular rate, Normal S1, Normal S2 Lungs: Clear Abdomen: Normal bowel sounds, Soft, Other (Mildly distended diffuse incisional tenderness) Extremities: No clubbing, No cyanosis, No edema Skin: No rashes, No breakdown Labs LABS ometimes decisions must be made about the use of emergency treatments to keep you alive. Doctors can use several artificial or mechanical ways to try to do this. Decisions that might come up at this time relate to: CPR (cardiopulmonary resuscitation) Ventilator use Artificial nutrition (tube feeding) and artificial hydration (IV, or intravenous, fluids) Comfort care What is CPR? Cardiopulmonary resuscitation might restore your heartbeat if your heart stops or is in a life-threatening abnormal rhythm. It involves repeatedly pushing on the chest with force, while putting air into the lungs. This force has to be quite strong, and sometimes ribs are broken or a lung collapses. Electric shocks, known as defibrillation, and medicines might also be used as part of the process. The heart of a young, otherwise healthy person might resume beating normally after CPR. Often, CPR does not succeed in older adults who have multiple chronic illnesses or who are already frail. Using a ventilator as emergency treatment. Ventilators are machines that help you breathe. A tube connected to the ventilator is put through the throat into the trachea (windpipe) so the machine can force air into the lungs. Putting the tube down the throat is called intubation. Because the tube is uncomfortable, medicines are often used to keep you sedated while on a ventilator. If you are expected to remain on a ventilator for a long time, a doctor may perform a tracheotomy or "trach" (rhymes with "make"). During this bedside surgery, the tube is inserted directly into the trachea through a hole in the neck. For long- term help with breathing, a trach is more comfortable, and sedation is not needed. People using such a breathing tube are not able to speak without special help because exhaled air does not go past their vocal cords. Using artificial nutrition and hydration near the end of life. If you are not able to eat, you may be fed through a feeding tube that is threaded through the nose down to your stomach. If tube feeding is still needed for an extended period, a feeding tube may be surgically inserted directly into your stomach. Hand feeding (sometimes called assisted oral feeding) is an alternative to tube feeding. This approach may have fewer risks, especially for people with dementia. If you are not able to drink, you may be provided with IV fluids. These are delivered through a thin plastic tube inserted into a vein. Operative Note Operative Note Operative Note Preoperative Diagnosis: Acute Appendicitis Postoperative Diagnosis: Perforated appendicitis Procedure: Laparoscopic appendectomy Surgeon: Jon Anesthesia: Gen. EBL: 10 mL Specimen: Appendix to pathology Drains: None Complications: None Indication: The patient is a 54 year old female who reported to the emergency department with abdominal pain. The evaluation is consistent with acute appendicitis. The patient was offered surgical treatment with a laparoscopic appendectomy. The risks of surgery were discussed which include bleeding, infection, visceral injury, pain, anesthetic risk, potential need for additional surgery or procedure. Laboratory Tests Test 10/30/19 11:15 White Blood Count 7.5 x10^3/uL (4.0-11.0) Red Blood Count 4.06 x10^6/uL (3.50-5.40) Hemoglobin 11.9 g/dL (12.0-15.5) Hematocrit 35.3 % (36.0-47.0) Mean Corpuscular Volume 87 fL (79-100) Mean Corpuscular Hemoglobin 29 pg (25-35) Mean Corpuscular Hemoglobin Concent 34 g/dL (31-37) Red Cell Distribution Width 13.7 % (11.5-14.5) Platelet Count 260 x10^3/uL (140-400) Neutrophils (%) (Auto) 81 % (31-73) Lymphocytes (%) (Auto) 11 % (24-48) Monocytes (%) (Auto) 7 % (0-9) Eosinophils (%) (Auto) 0 % (0-3) Basophils (%) (Auto) 0 % (0-3) Neutrophils # (Auto) 6.1 x10^3/uL (1.8-7.7) Lymphocytes # (Auto) 0.8 x10^3/uL (1.0-4.8) Monocytes # (Auto) 0.5 x10^3/uL (0.0-1.1) Eosinophils # (Auto) 0.0 x10^3/uL (0.0-0.7) Basophils # (Auto) 0.0 x10^3/uL (0.0-0.2) Sodium Level 138 mmol/L (136-145) Potassium Level 3.4 mmol/L (3.5-5.1) Chloride Level 103 mmol/L (98-107) Carbon Dioxide Level 28 mmol/L (21-32) Anion Gap 7 (6-14) Blood Urea Nitrogen 12 mg/dL (7-20) Creatinine 1.2 mg/dL (0.6-1.0) Estimated GFR (Cockcroft-Gault) 57.1 BUN/Creatinine Ratio 10 (6-20) Glucose Level 112 mg/dL (70-99) Calcium Level 8.1 mg/dL (8.5-10.1) Total Bilirubin 0.4 mg/dL (0.2-1.0) Aspartate Amino Transf (AST/SGOT) 16 U/L (15-37) Alanine Aminotransferase (ALT/SGPT) 23 U/L (14-59) Alkaline Phosphatase 56 U/L (46-116) Total Protein 6.5 g/dL (6.4-8.2) Albumin 2.6 g/dL (3.4-5.0) Albumin/Globulin Ratio 0.7 (1.0-1.7) Comment Review of Relevant I have reviewed the following items sienna (where applicable) has been applied. Labs Laboratory Tests Test 10/30/19 11:15 White Blood Count 7.5 x10^3/uL (4.0-11.0) Red Blood Count 4.06 x10^6/uL (3.50-5.40) Hemoglobin 11.9 g/dL (12.0-15.5) Hematocrit 35.3 % (36.0-47.0) Mean Corpuscular Volume 87 fL (79-100) Mean Corpuscular Hemoglobin 29 pg (25-35) Mean Corpuscular Hemoglobin Concent 34 g/dL (31-37) Red Cell Distribution Width 13.7 % (11.5-14.5) Platelet Count 260 x10^3/uL (140-400) Neutrophils (%) (Auto) 81 % (31-73) Lymphocytes (%) (Auto) 11 % (24-48) Monocytes (%) (Auto) 7 % (0-9) Eosinophils (%) (Auto) 0 % (0-3) Basophils (%) (Auto) 0 % (0-3) Neutrophils # (Auto) 6.1 x10^3/uL (1.8-7.7) Lymphocytes # (Auto) 0.8 x10^3/uL (1.0-4.8) Monocytes # (Auto) 0.5 x10^3/uL (0.0-1.1) Eosinophils # (Auto) 0.0 x10^3/uL (0.0-0.7) Basophils # (Auto) 0.0 x10^3/uL (0.0-0.2) Sodium Level 138 mmol/L (136-145) Potassium Level 3.4 mmol/L (3.5-5.1) Chloride Level 103 mmol/L (98-107) Carbon Dioxide Level 28 mmol/L (21-32) Anion Gap 7 (6-14) Blood Urea Nitrogen 12 mg/dL (7-20) Creatinine 1.2 mg/dL (0.6-1.0) Estimated GFR (Cockcroft-Gault) 57.1 BUN/Creatinine Ratio 10 (6-20) Glucose Level 112 mg/dL (70-99) Calcium Level 8.1 mg/dL (8.5-10.1) Total Bilirubin 0.4 mg/dL (0.2-1.0) Aspartate Amino Transf (AST/SGOT) 16 U/L (15-37) Alanine Aminotransferase (ALT/SGPT) 23 U/L (14-59) Alkaline Phosphatase 56 U/L (46-116) Total Protein 6.5 g/dL (6.4-8.2) Albumin 2.6 g/dL (3.4-5.0) Albumin/Globulin Ratio 0.7 (1.0-1.7) Laboratory Tests Test 10/30/19 11:15 White Blood Count 7.5 x10^3/uL (4.0-11.0) Red Blood Count 4.06 x10^6/uL (3.50-5.40) Hemoglobin 11.9 g/dL (12.0-15.5) Hematocrit 35.3 % (36.0-47.0) Mean Corpuscular Volume 87 fL (79-100) Mean Corpuscular Hemoglobin 29 pg (25-35) Mean Corpuscular Hemoglobin Concent 34 g/dL (31-37) Red Cell Distribution Width 13.7 % (11.5-14.5) Platelet Count 260 x10^3/uL (140-400) Neutrophils (%) (Auto) 81 % (31-73) Lymphocytes (%) (Auto) 11 % (24-48) Monocytes (%) (Auto) 7 % (0-9) Eosinophils (%) (Auto) 0 % (0-3) Basophils (%) (Auto) 0 % (0-3) Neutrophils # (Auto) 6.1 x10^3/uL (1.8-7.7) Lymphocytes # (Auto) 0.8 x10^3/uL (1.0-4.8) Monocytes # (Auto) 0.5 x10^3/uL (0.0-1.1) Eosinophils # (Auto) 0.0 x10^3/uL (0.0-0.7) Basophils # (Auto) 0.0 x10^3/uL (0.0-0.2) Sodium Level 138 mmol/L (136-145) Potassium Level 3.4 mmol/L (3.5-5.1) Chloride Level 103 mmol/L (98-107) Carbon Dioxide Level 28 mmol/L (21-32) Anion Gap 7 (6-14) Blood Urea Nitrogen 12 mg/dL (7-20) Creatinine 1.2 mg/dL (0.6-1.0) Estimated GFR (Cockcroft-Gault) 57.1 BUN/Creatinine Ratio 10 (6-20) Glucose Level 112 mg/dL (70-99) Calcium Level 8.1 mg/dL (8.5-10.1) Total Bilirubin 0.4 mg/dL (0.2-1.0) Aspartate Amino Transf (AST/SGOT) 16 U/L (15-37) Alanine Aminotransferase (ALT/SGPT) 23 U/L (14-59) Alkaline Phosphatase 56 U/L (46-116) Total Protein 6.5 g/dL (6.4-8.2) Albumin 2.6 g/dL (3.4-5.0) Albumin/Globulin Ratio 0.7 (1.0-1.7) Medications Current Medications Sodium Chloride (Normal Saline Flush) 3 ml QSHIFT PRN IV AFTER MEDS AND BLOOD DRAWS Last administered on 10/29/19at 00:59; Start 10/29/19 at 00:30 Sodium Chloride 1,000 ml @ 100 mls/hr Q10H IV Last administered on 10/31/19at 02:14; Start 10/29/19 at 00:30 Ondansetron HCl (Zofran) 4 mg PRN Q6HRS PRN IV NAUSEA/VOMITING Last administered on 10/31/19at 05:53; Start 10/29/19 at 00:30 Morphine Sulfate (Morphine Sulfate) 2 mg PRN Q2HR PRN IV PAIN Last administered on 10/31/19at 07:25; Start 10/29/19 at 00:30 Propofol (Diprivan) 200 mg STK-MED ONCE IV ; Start 10/29/19 at 08:08; Stop 10/29/19 at 08:08; Status DC Lidocaine HCl (Lidocaine Pf 2% Vial) 5 ml STK-MED ONCE .ROUTE ; Start 10/29/19 at 08:08; Stop 10/29/19 at 08:08; Status DC Rocuronium [place] (Zemuron) 50 mg STK-MED ONCE .ROUTE ; Start 10/29/19 at 08:08; Stop 10/29/19 at 08:08; Status DC Midazolam HCl (Versed) 2 mg STK-MED ONCE .ROUTE ; Start 10/29/19 at 08:08; Stop 10/29/19 at 08:08; Status DC Fentanyl Citrate (Fentanyl 5ml Vial) 250 mcg STK-MED ONCE .ROUTE ; Start 10/29/19 at 08:09; Stop 10/29/19 at 08:10; Status DC Fentanyl Citrate (Fentanyl 2ml Vial) 100 mcg STK-MED ONCE .ROUTE ; Start 10/29/19 at 08:24; Stop 10/29/19 at 08:24; Status DC Fentanyl Citrate (Fentanyl 2ml Vial) 50 mcg PACU PRN PRN IVP PAIN Last administered on 10/29/19at 10:50; Start 10/29/19 at 08:30; Stop 10/29/19 at 20:00; Status DC Ondansetron HCl (Zofran) 4 mg PRN Q6HRS PRN IV NAUSEA/VOMITING; Start 10/29/19 at 09:00; Stop 10/30/19 at 08:59; Status DC Fentanyl Citrate (Fentanyl 2ml Vial) 25 mcg PRN Q5MIN PRN IV MILD PAIN 1-3; Start 10/29/19 at 09:00; Stop 10/30/19 at 08:59; Status DC Fentanyl Citrate (Fentanyl 2ml Vial) 50 mcg PRN Q5MIN PRN IV MODERATE TO SEVERE PAIN; Start 10/29/19 at 09:00; Stop 10/30/19 at 08:59; Status DC Morphine Sulfate (Morphine Sulfate) 1 mg PRN Q10MIN PRN IV SEVERE PAIN 7-10 Last administered on 10/29/19at 11:20; Start 10/29/19 at 09:00; Stop 10/30/19 at 08:59; Status DC Ringer's Solution 1,000 ml @ 30 mls/hr Q24H IV ; Start 10/29/19 at 08:57; Stop 10/29/19 at 20:56; Status DC Hydromorphone HCl (Dilaudid) 0.5 mg PRN Q10MIN PRN IV SEV PAIN, Second choice Last administered on 10/29/19at 11:45; Start 10/29/19 at 09:00; Stop 10/30/19 at 08:59; Status DC Prochlorperazine Edisylate (Compazine) 5 mg PACU PRN PRN IV NAUSEA, MRX1 Last administered on 10/29/19at 10:55; Start 10/29/19 at 09:00; Stop 10/30/19 at 08:59; Status DC Cefazolin Sodium/ Dextrose 50 ml @ 100 mls/hr 1X ONCE IV Last administered on 10/29/19at 09:30; Start 10/29/19 at 09:00; Stop 10/29/19 at 09:29; Status DC Bupivacaine HCl/ Epinephrine Bitart (Sensorcain-Epi 0.5%-1:008198 Mpf) 30 ml STK-MED ONCE .ROUTE Last administered on 10/29/19at 09:42; Start 10/29/19 at 09:03; Stop 10/29/19 at 09:03; Status DC Neostigmine [place] (Neostigmine Methylsulfate) 5 mg STK-MED ONCE .ROUTE ; Start 10/29/19 at 09:48; Stop 10/29/19 at 09:48; Status DC Glycopyrrolate (Robinul) 1 mg STK-MED ONCE .ROUTE ; Start 10/29/19 at 09:48; Stop 10/29/19 at 09:48; Status DC Phenylephrine HCl (PHENYLEPHRINE in 0.9% NACL PF) 1 mg STK-MED ONCE IV ; Start 10/29/19 at 10:04; Stop 10/29/19 at 10:05; Status DC Sevoflurane (Ultane) 30 ml STK-MED ONCE IH ; Start 10/29/19 at 10:27; Stop at 10:28; Status DC Oxycodone/ Acetaminophen (Percocet 5/325) 1 tab PRN Q4HRS PRN PO MODERATE PAIN Last administered on 10/31/19at 05:54; Start 10/29/19 at 11:00 Morphine Sulfate (Morphine Sulfate) 2 mg STK-MED ONCE .ROUTE ; Start 10/29/19 at 10:57; Stop 10/29/19 at 10:57; Status DC Piperacillin Sod/ Tazobactam Sod 3.375 gm/Sodium Chloride 50 ml @ 100 mls/hr Q6HRS IV Last administered on 10/31/19at 05:54; Start 10/29/19 at 12:00 Oxycodone/ Acetaminophen (Percocet 5/325) 2 tab PRN Q4HRS PRN PO SEVERE PAIN Last administered on 10/30/19at 12:24; Start 10/29/19 at 11:15 Prochlorperazine Edisylate (Compazine) 10 mg STK-MED ONCE .ROUTE ; Start 10/29/19 at 11:02; Stop 10/29/19 at 11:02; Status DC Hydromorphone HCl (Dilaudid) 2 mg STK-MED ONCE .ROUTE ; Start 10/29/19 at 11:07; Stop 10/29/19 at 11:07; Status DC Lactobacillus Rhamnosus (Culturelle) 1 cap BID PO Last administered on 10/31/19at 07:22; Start 10/30/19 at 21:00 Polyethylene Glycol (miraLAX PACKET) 17 gm PRN DAILY PRN PO CONSTIPATION 1ST CHOICE Last administered on 10/31/19at 07:22; Start 10/31/19 at 06:45 Senna/Docusate Sodium (Senna Plus) 1 tab PRN BID PRN PO CONSTIPATION 2ND CHOICE; Start 10/31/19 at 06:45; Stop 10/31/19 at 07:03; Status DC Senna/Docusate Sodium (Senna Plus) 1 tab BID PO ; Start 10/31/19 at 09:00 Bisacodyl (Dulcolax Supp) 10 mg 1X ONCE WI ; Start 10/31/19 at 08:00; Stop 10/31/19 at 08:01; Status DC Active Scripts Active Reported Tylenol (Acetaminophen) 325 Mg Tablet 650 Mg PO PRN Q6HRS PRN [Protein Supplement] [Creatine Supplement] [BCAAs Supplement] Turmeric (Turmeric Root Extract) 538 Mg Capsule 538 Mg PO DAILY Cymbalta (Duloxetine Hcl) 30 Mg Capsule. 1 Cap PO HS [many supplements] [supplements] Vitals/I & O Vital Sign - Last 24 Hours 10/30/19 10/30/19 10/30/19 10/30/19 11:00 12:24 13:47 14:35 Temp 99.9 99.9 Pulse 93 Resp 18 B/P (MAP) 106/56 (73) Pulse Ox 90 O2 Delivery Nasal Cannula Room Air Room Air Room Air O2 Flow Rate 2.0 10/30/19 10/30/19 10/30/19 10/30/19 15:00 15:05 17:43 18:15 Temp 98.5 98.5 Pulse 96 Resp 18 B/P (MAP) 112/62 (79) Pulse Ox 91 O2 Delivery Nasal Cannula Room Air Room Air Room Air O2 Flow Rate 2.0 10/30/19 10/30/19 10/30/19 10/30/19 19:35 19:50 20:15 21:40 Temp 100.0 100.0 Pulse 98 Resp 20 B/P (MAP) 119/61 (80) Pulse Ox 91 O2 Delivery Room Air Room Air Room Air Room Air 10/30/19 10/31/19 10/31/19 10/31/19 23:28 02:14 02:44 03:00 Temp 99.9 99.1 99.9 99.1 Pulse 97 100 Resp 18 18 B/P (MAP) 118/61 (80) 115/71 (86) Pulse Ox 91 97 O2 Delivery Room Air Room Air Room Air Room Air 10/31/19 10/31/19 10/31/19 10/31/19 05:54 07:00 07:25 07:32 Temp 97.9 97.9 Pulse 105 Resp 18 B/P (MAP) 138/84 (102) Pulse Ox 88 O2 Delivery Room Air Room Air Room Air Room Air Intake and Output 10/30/19 10/30/19 10/31/19 15:00 23:00 07:00 Intake Total 50 ml 150 ml 600 ml Balance 50 ml 150 ml 600 ml Justicifation of Admission Dx: Justifications for Admission: Justification of Admission Dx: Yes MASHA ARTEAGA MD Oct 31, 2019 09:44
[2019-10-31] MEDS: SENNOSIDES/DOCUSATE 8.6/50MG TABLET. PO SCH ×2 (09:56→20:50)
--- NOTE | 2019-10-31 10:03 | NUR ---
SW following. Discussed with RN, pt from home, room air, clear liquid diet. Currently on IV abx, pt possibly has an ileus. SW will continue to follow.
[2019-10-31 11:00] VITALS: BP 120/70
[2019-10-31 11:29] LABS: BASO # 0.1 x10^3/uL (0.0-0.2); BASO % 0 % (0-3); EOS % 0 % (0-3); HEMATOCRIT 39.9 % (36.0-47.0); HEMOGLOBIN 13.6 g/dL (12.0-15.5); LYMPH # 0.9 x10^3/uL (1.0-4.8); LYMPH % 6 % (24-48); MEAN CORPUSCULAR HEMOGLOBIN 30 pg (25-35); MEAN CORPUSCULAR HGB CONC 34 g/dL (31-37); MEAN CORPUSCULAR VOLUME 87 fL (79-100); MONO % 7 % (0-9); NEUT # 12.2 x10^3/uL (1.8-7.7); NEUT % 86 % (31-73); PLATELET COUNT 304 x10^3/uL (140-400); WHITE BLOOD COUNT 14.1 x10^3/uL (4.0-11.0)
[2019-10-31 11:40] LABS: CALCIUM 8.8 mg/dL (8.5-10.1); CREATININE 0.9 mg/dL (0.6-1.0); GFR 79.6; POTASSIUM 3.5 mmol/L (3.5-5.1)
[2019-10-31 13:01] LABS: % BANDS 1 % (0-9); % LYMPHS 6 % (24-48); % MONOS 2 % (0-10); % SEGS 91 % (35-66); PLT ESTIMATE ADEQUATE (ADEQUATE)
[2019-10-31 15:00] VITALS: BP 128/63
--- NOTE | 2019-10-31 16:06 | PATHOLOGY ---
[facility] Accession Number: [id number] . 01 Material submitted: . appendix - APPENDIX . 01 Clinical history: . ACUTE,APPENDICITIS . 02 Diagnosis: Vermiform appendix, excision: - Marked acute appendicitis with transmural acute inflammation and acute serositis. - Negative for malignancy. (KINGA:tyrese; 10/31/2019) [facility] 10/31/2019 1527 Local . 02 Electronically signed: . Angy Santos MD, Pathologist NPI- [id number] . 01 Gross description: . The specimen is received in formalin, labeled "Jenny Hazel, appendix". Received is a vermiform appendix, which has been torn near the distal tip, measuring 7.5 cm in length by up to 1.4 cm in diameter with a moderate amount of attached mesoappendix. The serosal surface is dusky goss-brown and ragged in appearance. The surgical margin is closed with a line of estefania. The estefania are removed and the new margin is inked black. Sectioning reveals a patent to dilated lumen filled with fecal material. The specimen is submitted representatively as follows: . A1 proximal margin and bisected tip A2 cross-sections of appendix A3 proximal and distal aspects of where appendix was torn. (CAA; 10/30/2019) QA/[facility] 10/30/2019 1045 Local . 02 Pathologist provided ICD-10: K35.80, K65.8 . 02 CPT . 579869 Specimen Comment: A courtesy copy of this report has been sent to [phone], [phone] Specimen Comment: [id number] Specimen Comment: Report sent to / DR DE LA ROSA Performed at: [address], [place], [place] [id number] MD Arvin Martin MD Phone: [phone] Performed at: [address] [id number] MD Onur العلي MD Phone: [phone]
[2019-10-31 19:00] VITALS: BP 119/80
[2019-10-31] MEDS: ACETAMINOPHEN 650 MG SUPP.RECT. PR PRN (20:49)
[2019-10-31] MEDS: DULoxetine HCL 30 MG CAPSULE.DR PO SCH (20:49)
[2019-10-31 23:00] VITALS: BP 123/69
[2019-11-01] VITALS (19 sets, daily range): BP systolic 113–151; BP diastolic 73–84
[2019-11-01] MEDS: PIPERACILLIN/TAZOBACTAM 3.375 GM in IV NORMAL SALINE 50ML 50 ML IV SCH ×5 (00:01→23:56)
[2019-11-01] MEDS: ACETAMINOPHEN 650 MG SUPP.RECT. PR PRN (04:42)
[2019-11-01] MEDS: SENNOSIDES/DOCUSATE 8.6/50MG TABLET. PO SCH ×2 (08:42→21:36)
[2019-11-01] MEDS: LACTOBACILLUS RHAMNOSUS GG 1 CAPSULE. PO SCH ×2 (08:42→21:36)
--- NOTE | 2019-11-01 09:31 | RAD ---
Examination: Frontal view of the abdomen HISTORY: History of NG tube placement COMPARISON: None. Findings/ impression: NG tube is identified in the stomach. Multiple dilated small bowel loops identified in the abdomen likely small bowel obstruction. Electronically signed by: Michele Caceres MD (11/01/2019 9:28 AM) [id number]
[2019-11-01] MEDS: IV NORMAL SALINE 1000ML BAG 1,000 ML IV SCH ×2 (09:42→17:21)
--- NOTE | 2019-11-01 10:31 | PDOC ---
PROGRESS NOTES Date of Service DATE: 11/01/19 TIME: 10:29 Subjective Subjective Not feeling well, no flatus or stool, bloated, no vomiting yet Objective Objective Vital Signs Date Time Temp Pulse Resp B/P (MAP) Pulse Ox O2 Delivery O2 Flow Rate FiO2 11/01/19 07:00 97.7 91 18 122/73 (89) 91 Room Air 97.7 10/30/19 15:00 2.0 Intake and Output 11/01/19 07:00 Intake Total 350 ml Balance 350 ml Intake Oral 350 ml # Voids 4 Physical Exam Abdomen: Other (abdomen distended, tender) Assessment Assessment S/P lap appy, perforated appendicitis with repair of cecum Plan Plan of Care Place NG tube, check CT scan, suspect ileus but need to evaluate for abscess or disruption of cecal repair from prior perforation Comment Review of Relevant I have reviewed the following items sienna (where applicable) has been applied. Labs Laboratory Tests Test 10/30/19 11:15 10/31/19 10:55 11/01/19 01:50 White Blood Count 7.5 x10^3/uL (4.0-11.0) 14.1 x10^3/uL (4.0-11.0) Red Blood Count 4.06 x10^6/uL (3.50-5.40) 4.60 x10^6/uL (3.50-5.40) Hemoglobin 11.9 g/dL (12.0-15.5) 13.6 g/dL (12.0-15.5) Hematocrit 35.3 % (36.0-47.0) 39.9 % (36.0-47.0) Mean Corpuscular Volume 87 fL (79-100) 87 fL (79-100) Mean Corpuscular Hemoglobin 29 pg (25-35) 30 pg (25-35) Mean Corpuscular Hemoglobin Concent 34 g/dL (31-37) 34 g/dL (31-37) Red Cell Distribution Width 13.7 % (11.5-14.5) 14.0 % (11.5-14.5) Platelet Count 260 x10^3/uL (140-400) 304 x10^3/uL (140-400) Neutrophils (%) (Auto) 81 % (31-73) 86 % (31-73) Lymphocytes (%) (Auto) 11 % (24-48) 6 % (24-48) Monocytes (%) (Auto) 7 % (0-9) 7 % (0-9) Eosinophils (%) (Auto) 0 % (0-3) 0 % (0-3) Basophils (%) (Auto) 0 % (0-3) 0 % (0-3) Neutrophils # (Auto) 6.1 x10^3/uL (1.8-7.7) 12.2 x10^3/uL (1.8-7.7) Lymphocytes # (Auto) 0.8 x10^3/uL (1.0-4.8) 0.9 x10^3/uL (1.0-4.8) Monocytes # (Auto) 0.5 x10^3/uL (0.0-1.1) 1.0 x10^3/uL (0.0-1.1) Eosinophils # (Auto) 0.0 x10^3/uL (0.0-0.7) 0.0 x10^3/uL (0.0-0.7) Basophils # (Auto) 0.0 x10^3/uL (0.0-0.2) 0.1 x10^3/uL (0.0-0.2) Sodium Level 138 mmol/L (136-145) 138 mmol/L (136-145) Potassium Level 3.4 mmol/L (3.5-5.1) 3.5 mmol/L (3.5-5.1) Chloride Level 103 mmol/L (98-107) 102 mmol/L (98-107) Carbon Dioxide Level 28 mmol/L (21-32) 27 mmol/L (21-32) Anion Gap 7 (6-14) 9 (6-14) Blood Urea Nitrogen 12 mg/dL (7-20) 9 mg/dL (7-20) Creatinine 1.2 mg/dL (0.6-1.0) 0.9 mg/dL (0.6-1.0) Estimated GFR (Cockcroft-Gault) 57.1 79.6 BUN/Creatinine Ratio 10 (6-20) Glucose Level 112 mg/dL (70-99) 104 mg/dL (70-99) Calcium Level 8.1 mg/dL (8.5-10.1) 8.8 mg/dL (8.5-10.1) Total Bilirubin 0.4 mg/dL (0.2-1.0) Aspartate Amino Transf (AST/SGOT) 16 U/L (15-37) Alanine Aminotransferase (ALT/SGPT) 23 U/L (14-59) Alkaline Phosphatase 56 U/L (46-116) Total Protein 6.5 g/dL (6.4-8.2) Albumin 2.6 g/dL (3.4-5.0) Albumin/Globulin Ratio 0.7 (1.0-1.7) Segmented Neutrophils % 91 % (35-66) Band Neutrophils % 1 % (0-9) Lymphocytes % 6 % (24-48) Monocytes % 2 % (0-10) Platelet Estimate Adequate (ADEQUATE) Lactic Acid Level 1.0 mmol/L (0.4-2.0) Laboratory Tests Test 10/31/19 10:55 11/01/19 01:50 White Blood Count 14.1 x10^3/uL (4.0-11.0) Red Blood Count 4.60 x10^6/uL (3.50-5.40) Hemoglobin 13.6 g/dL (12.0-15.5) Hematocrit 39.9 % (36.0-47.0) Mean Corpuscular Volume 87 fL (79-100) Mean Corpuscular Hemoglobin 30 pg (25-35) Mean Corpuscular Hemoglobin Concent 34 g/dL (31-37) Red Cell Distribution Width 14.0 % (11.5-14.5) Platelet Count 304 x10^3/uL (140-400) Neutrophils (%) (Auto) 86 % (31-73) Lymphocytes (%) (Auto) 6 % (24-48) Monocytes (%) (Auto) 7 % (0-9) Eosinophils (%) (Auto) 0 % (0-3) Basophils (%) (Auto) 0 % (0-3) Neutrophils # (Auto) 12.2 x10^3/uL (1.8-7.7) Lymphocytes # (Auto) 0.9 x10^3/uL (1.0-4.8) Monocytes # (Auto) 1.0 x10^3/uL (0.0-1.1) Eosinophils # (Auto) 0.0 x10^3/uL (0.0-0.7) Basophils # (Auto) 0.1 x10^3/uL (0.0-0.2) Segmented Neutrophils % 91 % (35-66) Band Neutrophils % 1 % (0-9) Lymphocytes % 6 % (24-48) Monocytes % 2 % (0-10) Platelet Estimate Adequate (ADEQUATE) Sodium Level 138 mmol/L (136-145) Potassium Level 3.5 mmol/L (3.5-5.1) Chloride Level 102 mmol/L (98-107) Carbon Dioxide Level 27 mmol/L (21-32) Anion Gap 9 (6-14) Blood Urea Nitrogen 9 mg/dL (7-20) Creatinine 0.9 mg/dL (0.6-1.0) Estimated GFR (Cockcroft-Gault) 79.6 Glucose Level 104 mg/dL (70-99) Calcium Level 8.8 mg/dL (8.5-10.1) Lactic Acid Level 1.0 mmol/L (0.4-2.0) Medications Current Medications Sodium Chloride (Normal Saline Flush) 3 ml QSHIFT PRN IV AFTER MEDS AND BLOOD DRAWS Last administered on 10/29/19at 00:59; Start 10/29/19 at 00:30 Sodium Chloride 1,000 ml @ 100 mls/hr Q10H IV Last administered on 11/01/19at 09:42; Start 10/29/19 at 00:30 Ondansetron HCl (Zofran) 4 mg PRN Q6HRS PRN IV NAUSEA/VOMITING Last administered on 10/31/19at 05:53; Start 10/29/19 at 00:30 Morphine Sulfate (Morphine Sulfate) 2 mg PRN Q2HR PRN IV PAIN Last administered on 10/31/19at 10:04; Start 10/29/19 at 00:30 Propofol (Diprivan) 200 mg STK-MED ONCE IV ; Start 10/29/19 at 08:08; Stop 10/29/19 at 08:08; Status DC Lidocaine HCl (Lidocaine Pf 2% Vial) 5 ml STK-MED ONCE .ROUTE ; Start 10/29/19 at 08:08; Stop 10/29/19 at 08:08; Status DC Rocuronium [place] (Zemuron) 50 mg STK-MED ONCE .ROUTE ; Start 10/29/19 at 08:08; Stop 10/29/19 at 08:08; Status DC Midazolam HCl (Versed) 2 mg STK-MED ONCE .ROUTE ; Start 10/29/19 at 08:08; Stop 10/29/19 at 08:08; Status DC Fentanyl Citrate (Fentanyl 5ml Vial) 250 mcg STK-MED ONCE .ROUTE ; Start 10/29/19 at 08:09; Stop 10/29/19 at 08:10; Status DC Fentanyl Citrate (Fentanyl 2ml Vial) 100 mcg STK-MED ONCE .ROUTE ; Start 10/29/19 at 08:24; Stop 10/29/19 at 08:24; Status DC Fentanyl Citrate (Fentanyl 2ml Vial) 50 mcg PACU PRN PRN IVP PAIN Last administered on 10/29/19at 10:50; Start 10/29/19 at 08:30; Stop 10/29/19 at 20:00; Status DC Ondansetron HCl (Zofran) 4 mg PRN Q6HRS PRN IV NAUSEA/VOMITING; Start 10/29/19 at 09:00; Stop 10/30/19 at 08:59; Status DC Fentanyl Citrate (Fentanyl 2ml Vial) 25 mcg PRN Q5MIN PRN IV MILD PAIN 1-3; Start 10/29/19 at 09:00; Stop 10/30/19 at 08:59; Status DC Fentanyl Citrate (Fentanyl 2ml Vial) 50 mcg PRN Q5MIN PRN IV MODERATE TO SEVERE PAIN; Start 10/29/19 at 09:00; Stop 10/30/19 at 08:59; Status DC Morphine Sulfate (Morphine Sulfate) 1 mg PRN Q10MIN PRN IV SEVERE PAIN 7-10 Last administered on 10/29/19at 11:20; Start 10/29/19 at 09:00; Stop 10/30/19 at 08:59; Status DC Ringer's Solution 1,000 ml @ 30 mls/hr Q24H IV ; Start 10/29/19 at 08:57; Stop 10/29/19 at 20:56; Status DC Hydromorphone HCl (Dilaudid) 0.5 mg PRN Q10MIN PRN IV SEV PAIN, Second choice Last administered on 10/29/19at 11:45; Start 10/29/19 at 09:00; Stop 10/30/19 at 08:59; Status DC Prochlorperazine Edisylate (Compazine) 5 mg PACU PRN PRN IV NAUSEA, MRX1 Last administered on 10/29/19at 10:55; Start 10/29/19 at 09:00; Stop 10/30/19 at 08:59; Status DC Cefazolin Sodium/ Dextrose 50 ml @ 100 mls/hr 1X ONCE IV Last administered on 10/29/19at 09:30; Start 10/29/19 at 09:00; Stop 10/29/19 at 09:29; Status DC Bupivacaine HCl/ Epinephrine Bitart (Sensorcain-Epi 0.5%-1:196921 Mpf) 30 ml STK-MED ONCE .ROUTE Last administered on 10/29/19at 09:42; Start 10/29/19 at 09:03; Stop 10/29/19 at 09:03; Status DC Neostigmine [place] (Neostigmine Methylsulfate) 5 mg STK-MED ONCE .ROUTE ; Start 10/29/19 at 09:48; Stop 10/29/19 at 09:48; Status DC Glycopyrrolate (Robinul) 1 mg STK-MED ONCE .ROUTE ; Start 10/29/19 at 09:48; Stop 10/29/19 at 09:48; Status DC Phenylephrine HCl (PHENYLEPHRINE in 0.9% NACL PF) 1 mg STK-MED ONCE IV ; Start 10/29/19 at 10:04; Stop 10/29/19 at 10:05; Status DC Sevoflurane (Ultane) 30 ml STK-MED ONCE IH ; Start 10/29/19 at 10:27; Stop 10/29/19 at 10:28; Status DC Oxycodone/ Acetaminophen (Percocet 5/325) 1 tab PRN Q4HRS PRN PO MODERATE PAIN Last administered on 10/31/19at 05:54; Start 10/29/19 at 11:00 Morphine Sulfate (Morphine Sulfate) 2 mg STK-MED ONCE .ROUTE ; Start 10/29/19 at 10:57; Stop 10/29/19 at 10:57; Status DC Piperacillin Sod/ Tazobactam Sod 3.375 gm/Sodium Chloride 50 ml @ 100 mls/hr Q6HRS IV Last administered on 11/01/19at 05:58; Start 10/29/19 at 12:00 Oxycodone/ Acetaminophen (Percocet 5/325) 2 tab PRN Q4HRS PRN PO SEVERE PAIN Last administered on 10/30/19at 12:24; Start 10/29/19 at 11:15 Prochlorperazine Edisylate (Compazine) 10 mg STK-MED ONCE .ROUTE ; Start 10/29/19 at 11:02; Stop 10/29/19 at 11:02; Status DC Hydromorphone HCl (Dilaudid) 2 mg STK-MED ONCE .ROUTE ; Start 10/29/19 at 11:07; Stop 10/29/19 at 11:07; Status DC Lactobacillus Rhamnosus (Culturelle) 1 cap BID PO Last administered on 10/31/19at 07:22; Start 10/30/19 at 21:00 Polyethylene Glycol (miraLAX PACKET) 17 gm PRN DAILY PRN PO CONSTIPATION 1ST CHOICE Last administered on 10/31/19at 07:22; Start 10/31/19 at 06:45 Senna/Docusate Sodium (Senna Plus) 1 tab PRN BID PRN PO CONSTIPATION 2ND CHOICE; Start 10/31/19 at 06:45; Stop 10/31/19 at 07:03; Status DC Senna/Docusate Sodium (Senna Plus) 1 tab BID PO Last administered on 10/31/19at 09:56; Start 10/31/19 at 09:00 Bisacodyl (Dulcolax Supp) 10 mg 1X ONCE VT Last administered on 10/31/19at 09:57; Start 10/31/19 at 08:00; Stop 10/31/19 at 08:01; Status DC Acetaminophen (Tylenol Supp) 650 mg Q4HRS PRN VT MILD PAIN / TEMP > 100.3'F Last administered on 11/01/19at 04:42; Start 10/31/19 at 19:30 Duloxetine HCl (Cymbalta) 30 mg QHS PO Last administered on 10/31/19at 20:49; Start 10/31/19 at 21:00 Active Scripts Active Reported Tylenol (Acetaminophen) 325 Mg Tablet 650 Mg PO PRN Q6HRS PRN [Protein Supplement] [Creatine Supplement] [BCAAs Supplement] Turmeric (Turmeric Root Extract) 538 Mg Capsule 538 Mg PO DAILY Cymbalta (Duloxetine Hcl) 30 Mg Capsule. 1 Cap PO HS [many supplements] [supplements] Vitals/I & O Vital Sign - Last 24 Hours 10/31/19 10/31/19 10/31/19 10/31/19 10:37 11:00 15:00 19:00 Temp 97.9 98.0 98.9 97.9 98.0 98.9 Pulse 100 98 102 Resp 18 18 16 B/P (MAP) 120/70 (87) 128/63 (84) 119/80 (93) Pulse Ox 92 92 97 O2 Delivery Room Air Room Air Room Air Room Air 10/31/19 10/31/19 11/01/19 11/01/19 20:00 23:00 03:00 07:00 Temp 98.9 98.6 97.7 98.9 98.6 97.7 Pulse 95 97 91 Resp 16 16 18 B/P (MAP) 123/69 (87) 119/74 (89) 122/73 (89) Pulse Ox 94 92 91 O2 Delivery Room Air Room Air Room Air Room Air Intake and Output 10/31/19 10/31/19 11/01/19 15:00 23:00 07:00 Intake Total 250 ml 50 ml 50 ml Balance 250 ml 50 ml 50 ml Justifications for Admission Other Justification KASHIF GARDNER MD Nov 01, 2019 10:31
[2019-11-01] MEDS ORDERED: IOHEXOL 300 MG/ML 100ML VIAL. IV ONE (10:45)
[2019-11-01] MEDS ORDERED: CONTRAST GIVEN. MC PRN (10:45)
--- NOTE | 2019-11-01 10:52 | RAD ---
Examination: CT of the abdomen pelvis were performed with IV contrast HISTORY: History of history of perforated appendicitis COMPARISON: None TECHNIQUE: Axial CT images of the abdomen pelvis were performed with IV contrast and coronal sagittal reformats are performed Exposure: One or more of the following individualized dose reduction techniques were utilized for this examination: 1. Automated exposure control 2. Adjustment of the mA and/or kV according to patient size 3. Use of iterative reconstruction technique. Findings: Bibasilar lung consolidation changes with air bronchograms, right greater than left, with trace bilateral pleural effusions. No evidence of free air identified in the abdomen. The liver, spleen, adrenals grossly appears unremarkable. The gallbladder is mildly distended. The stomach is mildly distended. A NG tube is identified within the stomach. There are multiple dilated small bowel loops identified throughout the abdomen. Surgical changes identified in the right lower quadrant of the abdomen likely recent appendectomy. There is mild thickened appearance of the distal ileal bowel loop. Feces and gas noted in the caliber of the bilateral kidneys enhance symmetrically. There is a 7.5 x 7.1 cm fluid identified in the collection identified in the pelvis just anterior to the rectum with mildly enhancing wall likely abscess. Small amount of free fluid identified in the pelvis. Mild degenerative changes lumbar spine. IMPRESSION: 1. A 7.5 x 7.1 cm fluid identified in the collection identified in the pelvis just anterior to the rectum with mildly enhancing wall likely pelvic abscess. 2. Multiple fluid distended and dilated small bowel loops throughout the abdomen probably ileus. 3. Surgical clips identified in the right lower quadrant abdomen likely recent appendectomy changes. Mild thickened appearance of the wall of the distal ileum could be nondistention or ileitis. 4. Bibasilar lung consolidation changes likely pneumonia or atelectasis. Small bilateral pleural effusions. Electronically signed by: Michele Caceres MD (11/01/2019 10:50 AM) [id number]
[2019-11-01] MEDS: MORPHINE SULFATE 2 MG/ML VIAL. IV PRN ×4 (11:24→23:54)
[2019-11-01] MEDS ORDERED: fentaNYL PF VIAL 100 MCG/2 ML VIAL ONE (13:32)
[2019-11-01] MEDS ORDERED: MIDAZOLAM HCL/PF 2 MG/2 ML VIAL. ONE (13:32)
[2019-11-01] MEDS ORDERED: LIDOCAINE 1% Multi-Dose 20 ML VIAL. ONE (13:38)
[2019-11-01] MEDS ORDERED: LIDOCAINE 1% Multi-Dose 20 ML VIAL. INJ ONE (14:15)
[2019-11-01] MEDS ORDERED: fentaNYL PF VIAL 100 MCG/2 ML VIAL IV ONE (14:15)
[2019-11-01] MEDS ORDERED: MIDAZOLAM HCL/PF 2 MG/2 ML VIAL. IV ONE (14:15)
--- NOTE | 2019-11-01 15:56 | PDOC ---
[facility] PROGRESS NOTE Date of Service DOS: DATE: 11/01/19 TIME: 15:52 Chief Complaint Chief Complaint ASSESSMENT AND PLAN: Appendicitis., ruptured status post laparoscopic appendectomy on 10/30/2019 Postoperative ileus Obesity class I sepsis PLAN NG tube placed placed on wall intermittent suction CT abdomen pelvis ordered Appreciate surgery recommendations Continue IV antibiotics, IV pain meds Continue bowel regimen IV fluids. PT OT Per surgery for DVT prophylaxis ADA diet Full code Discussed with RN and SW Disposition inpatient care pending surgical evaluation for ileus Surrogate decision maker is the self will be dpoa History of Present Illness History of Present Illness HISTORY OF PRESENT ILLNESS: The patient is a pleasant 54-year-old female who presented to the OR with abdominal pain. She initially went to [facility]. They imaged her. She has appendicitis. She has now been transferred to our facility. We have consulted Dr. Bijan Webb PAST MEDICAL HISTORY: Abdominoplasty and . ALLERGIES: MELOXICAM, SULFA, AND TRIMETHOPRIM. FAMILY HISTORY: Diabetes. SOCIAL HISTORY: She does not drink, smoke, or take drugs. Vitals/I&O Vitals/I&O: Vital Signs Date Time Temp Pulse Resp B/P (MAP) Pulse Ox O2 Delivery O2 Flow Rate FiO2 11/01/19 15:00 97.7 100 16 148/73 (98) 94 Room Air 97.7 11/01/19 14:29 2.0 I & O 10/31/19 10/31/19 11/01/19 15:00 23:00 07:00 Intake Total 250 ml 50 ml 50 ml Balance 250 ml 50 ml 50 ml Physical Exam Physical Exam: DRESSING DRY, INTACT General: Alert, Oriented X3, Cooperative, mild distress Heart: Regular rate, Normal S1, Normal S2 Lungs: Clear Abdomen: Other (abdomen distended, tender) Extremities: No clubbing, No cyanosis, No edema Skin: No rashes, No breakdown Labs Labs: Laboratory Tests Test 11/01/19 01:50 Lactic Acid Level 1.0 mmol/L (0.4-2.0) Comment Review of Relevant I have reviewed the following items sienna (where applicable) has been applied. Medications: Current Medications Medications (Trade) Dose Ordered Sig/Kyle Route PRN Reason Start Time Stop Time Status Last Admin Dose Admin Acetaminophen (Tylenol Supp) 650 mg Q4HRS PRN DC MILD PAIN / TEMP > 100.3'F 10/31/19 19:30 11/01/19 04:42 Duloxetine HCl (Cymbalta) 30 mg QHS PO 10/31/19 21:00 10/31/19 20:49 Iohexol (Omnipaque 300 Mg/ml) 75 ml 1X ONCE IV 11/01/19 10:45 11/01/19 10:46 DC 11/01/19 10:56 Midazolam HCl (Versed) 2 mg 1X ONCE IV 11/01/19 14:15 11/01/19 14:16 DC 11/01/19 14:28 Fentanyl Citrate (Fentanyl 2ml Vial) 100 mcg 1X ONCE IV 11/01/19 14:15 11/01/19 14:16 DC 11/01/19 14:29 Lidocaine HCl (Lidocaine 1% 20ml Vial) 20 ml 1X ONCE INJ 11/01/19 14:15 11/01/19 14:16 DC 11/01/19 14:29 Justifications for Admission Other Justification GARIMA BHAGAT MD Nov 01, 2019 15:56
[2019-11-01] MEDS: DULoxetine HCL 30 MG CAPSULE.DR PO SCH (21:36)
[2019-11-01] MEDS: ONDANSETRON PF 4 MG/2 ML VIAL. IV PRN (21:37)
[2019-11-02 03:47] VITALS: BP 134/60
[2019-11-02] MEDS: IV NORMAL SALINE 1000ML BAG 1,000 ML IV SCH ×2 (03:57→13:09)
[2019-11-02] MEDS: MORPHINE SULFATE 2 MG/ML VIAL. IV PRN ×4 (03:58→19:33)
[2019-11-02] MEDS: PIPERACILLIN/TAZOBACTAM 3.375 GM in IV NORMAL SALINE 50ML 50 ML IV SCH ×3 (05:01→16:30)
[2019-11-02] MEDS: LACTOBACILLUS RHAMNOSUS GG 1 CAPSULE. PO SCH ×2 (06:35→21:06)
[2019-11-02] MEDS: SENNOSIDES/DOCUSATE 8.6/50MG TABLET. PO SCH ×2 (06:35→21:06)
[2019-11-02 07:00] VITALS: BP 136/84
[2019-11-02 11:00] VITALS: BP 122/89
--- NOTE | 2019-11-02 13:21 | PDOC ---
PROGRESS NOTES Date of Service DATE: 11/02/19 TIME: 13:20 Subjective Subjective Feeling better, drain placed by IR; passing gas Objective Objective Vital Signs Date Time Temp Pulse Resp B/P (MAP) Pulse Ox O2 Delivery O2 Flow Rate FiO2 11/02/19 11:46 92 Room Air 11/02/19 11:00 97.8 82 18 122/89 (100) 97.8 11/02/19 04:48 2.0 Intake and Output 11/02/19 07:00 Intake Total 1050 ml Output Total 130 ml Balance 920 ml IV Total 1050 ml Gastric Drainage Total 30 ml Drainage Total 100 ml # Voids 2 Physical Exam Abdomen: Soft (mildly distended but improved, less tender) Assessment Assessment S/P lap appy, abscess drainage Plan Plan of Care Cont with abx, drainage, will clamp NG tube Comment Review of Relevant I have reviewed the following items sienna (where applicable) has been applied. Labs Laboratory Tests Test 11/01/19 01:50 Lactic Acid Level 1.0 mmol/L (0.4-2.0) Microbiology 11/01/19 Blood Culture - Preliminary, Resulted NO GROWTH AFTER 1 DAY Medications Current Medications Sodium Chloride (Normal Saline Flush) 3 ml QSHIFT PRN IV AFTER MEDS AND BLOOD DRAWS Last administered on 10/29/19at 00:59; Start 10/29/19 at 00:30 Sodium Chloride 1,000 ml @ 100 mls/hr Q10H IV Last administered on 11/02/19at 13:09; Start 10/29/19 at 00:30 Ondansetron HCl (Zofran) 4 mg PRN Q6HRS PRN IV NAUSEA/VOMITING Last administered on 11/01/19at 21:37; Start 10/29/19 at 00:30 Morphine Sulfate (Morphine Sulfate) 2 mg PRN Q2HR PRN IV PAIN Last administered on 11/02/19at 11:28; Start 10/29/19 at 00:30 Propofol (Diprivan) 200 mg STK-MED ONCE IV ; Start 10/29/19 at 08:08; Stop 10/29/19 at 08:08; Status DC Lidocaine HCl (Lidocaine Pf 2% Vial) 5 ml STK-MED ONCE .ROUTE ; Start 10/29/19 at 08:08; Stop 10/29/19 at 08:08; Status DC Rocuronium [place] (Zemuron) 50 mg STK-MED ONCE .ROUTE ; Start 10/29/19 at 08:08; Stop 10/29/19 at 08:08; Status DC Midazolam HCl (Versed) 2 mg STK-MED ONCE .ROUTE ; Start 10/29/19 at 08:08; Stop 10/29/19 at 08:08; Status DC Fentanyl Citrate (Fentanyl 5ml Vial) 250 mcg STK-MED ONCE .ROUTE ; Start 10/29/19 at 08:09; Stop 10/29/19 at 08:10; Status DC Fentanyl Citrate (Fentanyl 2ml Vial) 100 mcg STK-MED ONCE .ROUTE ; Start 10/29/19 at 08:24; Stop 10/29/19 at 08:24; Status DC Fentanyl Citrate (Fentanyl 2ml Vial) 50 mcg PACU PRN PRN IVP PAIN Last administered on 10/29/19at 10:50; Start 10/29/19 at 08:30; Stop 10/29/19 at 20:00; Status DC Ondansetron HCl (Zofran) 4 mg PRN Q6HRS PRN IV NAUSEA/VOMITING; Start 10/29/19 at 09:00; Stop 10/30/19 at 08:59; Status DC Fentanyl Citrate (Fentanyl 2ml Vial) 25 mcg PRN Q5MIN PRN IV MILD PAIN 1-3; Start 10/29/19 at 09:00; Stop 10/30/19 at 08:59; Status DC Fentanyl Citrate (Fentanyl 2ml Vial) 50 mcg PRN Q5MIN PRN IV MODERATE TO SEVERE PAIN; Start 10/29/19 at 09:00; Stop 10/30/19 at 08:59; Status DC Morphine Sulfate (Morphine Sulfate) 1 mg PRN Q10MIN PRN IV SEVERE PAIN 7-10 Last administered on 10/29/19at 11:20; Start 10/29/19 at 09:00; Stop 10/30/19 at 08:59; Status DC Ringer's Solution 1,000 ml @ 30 mls/hr Q24H IV ; Start 10/29/19 at 08:57; Stop 10/29/19 at 20:56; Status DC Hydromorphone HCl (Dilaudid) 0.5 mg PRN Q10MIN PRN IV SEV PAIN, Second choice Last administered on 10/29/19at 11:45; Start 10/29/19 at 09:00; Stop 10/30/19 at 08:59; Status DC Prochlorperazine Edisylate (Compazine) 5 mg PACU PRN PRN IV NAUSEA, MRX1 Last administered on 10/29/19at 10:55; Start 10/29/19 at 09:00; Stop 10/30/19 at 08:59; Status DC Cefazolin Sodium/ Dextrose 50 ml @ 100 mls/hr 1X ONCE IV Last administered on 10/29/19at 09:30; Start 10/29/19 at 09:00; Stop 10/29/19 at 09:29; Status DC Bupivacaine HCl/ Epinephrine Bitart (Sensorcain-Epi 0.5%-1:879794 Mpf) 30 ml STK-MED ONCE .ROUTE Last administered on 10/29/19at 09:42; Start 10/29/19 at 09:03; Stop 10/29/19 at 09:03; Status DC Neostigmine [place] (Neostigmine Methylsulfate) 5 mg STK-MED ONCE .ROUTE ; Start 10/29/19 at 09:48; Stop 10/29/19 at 09:48; Status DC Glycopyrrolate (Robinul) 1 mg STK-MED ONCE .ROUTE ; Start 10/29/19 at 09:48; Stop 10/29/19 at 09:48; Status DC Phenylephrine HCl (PHENYLEPHRINE in 0.9% NACL PF) 1 mg STK-MED ONCE IV ; Start 10/29/19 at 10:04; Stop 10/29/19 at 10:05; Status DC Sevoflurane (Ultane) 30 ml STK-MED ONCE IH ; Start 10/29/19 at 10:27; Stop 10/29/19 at 10:28; Status DC Oxycodone/ Acetaminophen (Percocet 5/325) 1 tab PRN Q4HRS PRN PO MODERATE PAIN Last administered on 10/31/19at 05:54; Start 10/29/19 at 11:00 Morphine Sulfate (Morphine Sulfate) 2 mg STK-MED ONCE .ROUTE ; Start 10/29/19 at 10:57; Stop 10/29/19 at 10:57; Status DC Piperacillin Sod/ Tazobactam Sod 3.375 gm/Sodium Chloride 50 ml @ 100 mls/hr Q6HRS IV Last administered on 11/02/19at 11:23; Start 10/29/19 at 12:00 Oxycodone/ Acetaminophen (Percocet 5/325) 2 tab PRN Q4HRS PRN PO SEVERE PAIN Last administered on 10/30/19at 12:24; Start 10/29/19 at 11:15 Prochlorperazine Edisylate (Compazine) 10 mg STK-MED ONCE .ROUTE ; Start 10/29/19 at 11:02; Stop 10/29/19 at 11:02; Status DC Hydromorphone HCl (Dilaudid) 2 mg STK-MED ONCE .ROUTE ; Start 10/29/19 at 11:07; Stop 10/29/19 at 11:07; Status DC Lactobacillus Rhamnosus (Culturelle) 1 cap BID PO Last administered on 11/01/19at 21:36; Start 10/30/19 at 21:00 Polyethylene Glycol (miraLAX PACKET) 17 gm PRN DAILY PRN PO CONSTIPATION 1ST CHOICE Last administered on 10/31/19at 07:22; Start 10/31/19 at 06:45 Senna/Docusate Sodium (Senna Plus) 1 tab PRN BID PRN PO CONSTIPATION 2ND CHOICE; Start 10/31/19 at 06:45; Stop 10/31/19 at 07:03; Status DC Senna/Docusate Sodium (Senna Plus) 1 tab BID PO Last administered on 11/01/19at 21:36; Start 10/31/19 at 09:00 Bisacodyl (Dulcolax Supp) 10 mg 1X ONCE CO Last administered on 10/31/19at 09:57; Start 10/31/19 at 08:00; Stop 10/31/19 at 08:01; Status DC Acetaminophen (Tylenol Supp) 650 mg Q4HRS PRN CO MILD PAIN / TEMP > 100.3'F Last administered on 11/01/19at 04:42; Start 10/31/19 at 19:30 Duloxetine HCl (Cymbalta) 30 mg QHS PO Last administered on 11/01/19at 21:36; Start 10/31/19 at 21:00 Iohexol (Omnipaque 300 Mg/ml) 75 ml 1X ONCE IV Last administered on 11/01/19at 10:56; Start 11/01/19 at 10:45; Stop 11/01/19 at 10:46; Status DC Info (CONTRAST GIVEN -- Rx MONITORING) 1 each PRN DAILY PRN MC SEE COMMENTS; Start 11/01/19 at 10:45; Stop 11/03/19 at 10:44 Midazolam HCl (Versed) 2 mg STK-MED ONCE .ROUTE ; Start 11/01/19 at 13:32; Stop 11/01/19 at 13:33; Status DC Fentanyl Citrate (Fentanyl 2ml Vial) 100 mcg STK-MED ONCE .ROUTE ; Start 11/01/19 at 13:32; Stop 11/01/19 at 13:33; Status DC Lidocaine HCl (Lidocaine 1% 20ml Vial) 20 ml STK-MED ONCE .ROUTE ; Start 11/01/19 at 13:38; Stop 11/01/19 at 13:38; Status DC Midazolam HCl (Versed) 2 mg 1X ONCE IV Last administered on 11/01/19at 14:28; Start 11/01/19 at 14:15; Stop 11/01/19 at 14:16; Status DC Fentanyl Citrate (Fentanyl 2ml Vial) 100 mcg 1X ONCE IV Last administered on 11/01/19at 14:29; Start 11/01/19 at 14:15; Stop 11/01/19 at 14:16; Status DC Lidocaine HCl (Lidocaine 1% 20ml Vial) 20 ml 1X ONCE INJ Last administered on 11/01/19at 14:29; Start 11/01/19 at 14:15; Stop 11/01/19 at 14:16; Status DC Active Scripts Active Reported Tylenol (Acetaminophen) 325 Mg Tablet 650 Mg PO PRN Q6HRS PRN [Protein Supplement] [Creatine Supplement] [BCAAs Supplement] Turmeric (Turmeric Root Extract) 538 Mg Capsule 538 Mg PO DAILY Cymbalta (Duloxetine Hcl) 30 Mg Capsule. 1 Cap PO HS [many supplements] [supplements] Vitals/I & O Vital Sign - Last 24 Hours 11/01/19 11/01/19 11/01/19 11/01/19 14:04 14:09 14:14 14:19 Pulse 96 95 92 93 Resp 22 21 21 21 Pulse Ox 97 97 97 96 O2 Delivery Nasal Cannula Nasal Cannula Nasal Cannula Nasal Cannula O2 Flow Rate 2.0 2.0 2.0 2.0 11/01/19 11/01/19 11/01/19 11/01/19 14:25 14:29 14:47 15:00 Temp 97.7 97.7 Pulse 96 102 100 Resp 21 21 16 B/P (MAP) 148/73 (98) 148/73 (98) Pulse Ox 97 97 94 94 O2 Delivery Nasal Cannula Nasal Cannula Room Air O2 Flow Rate 2.0 2.0 11/01/19 11/01/19 11/01/19 11/01/19 15:00 15:15 15:30 15:45 Pulse 97 93 92 B/P (MAP) 134/75 (94) 133/77 (95) 129/73 (91) 133/79 (97) Pulse Ox 96 91 94 11/01/19 11/01/19 11/01/19 11/01/19 16:00 16:30 17:00 17:21 Pulse 92 95 B/P (MAP) 136/84 (101) 126/81 (96) 113/80 (91) Pulse Ox 94 91 94 O2 Delivery Room Air 11/01/19 11/01/19 11/01/19 11/01/19 18:00 18:17 19:35 20:00 Temp 98.9 98.9 Pulse 88 92 Resp 18 B/P (MAP) 131/81 (98) 138/79 (98) Pulse Ox 96 94 94 O2 Delivery Room Air Room Air Room Air 11/01/19 11/01/19 11/01/19 11/01/19 21:37 22:10 23:40 23:54 Temp 99.0 99.0 Pulse 96 Resp 18 B/P (MAP) 133/75 (94) Pulse Ox 94 94 91 94 O2 Delivery Room Air Room Air Room Air Room Air O2 Flow Rate 2.0 2.0 2.0 11/02/19 11/02/19 11/02/19 11/02/19 00:30 03:47 03:58 04:48 Temp 98.9 98.9 Pulse 94 Resp 18 20 18 20 B/P (MAP) 134/60 (84) Pulse Ox 94 94 O2 Delivery Room Air Room Air Room Air Room Air O2 Flow Rate 2.0 2.0 11/02/19 11/02/19 11/02/1920 07:00 07:00 08:00 11:00 Temp 98.2 97.8 98.2 97.8 Pulse 88 91 82 Resp 18 18 B/P (MAP) 136/84 (101) 122/89 (100) Pulse Ox 91 92 O2 Delivery Room Air Room Air Room Air 11/02/19 11/02/19 11:28 11:46 Pulse Ox 92 92 O2 Delivery Room Air Room Air Intake and Output 11/01/19 11/01/19 11/02/19 15:00 23:00 07:00 Intake Total 1050 ml Output Total 100 ml 30 ml Balance -100 ml 1020 ml Justifications for Admission Other Justification KASHIF GARDNER MD Nov 02, 2019 13:21
--- NOTE | 2019-11-02 14:49 | NUR ---
Patient has c/o heartburn, notified Dr. Wong, new order received.
[2019-11-02] MEDS: FAMOTIDINE 20 MG/2 ML VIAL IVP SCH ×2 (14:53→21:06)
[2019-11-02 15:00] VITALS: BP 140/74
--- NOTE | 2019-11-02 19:22 | PDOC ---
[facility] PROGRESS NOTE Date of Service DOS: DATE: 11/02/19 TIME: 19:20 Chief Complaint Chief Complaint ASSESSMENT AND PLAN: Appendicitis., ruptured status post laparoscopic appendectomy on 10/30/2019 Postoperative ileus Intra-abdominal abscess Obesity class I sepsis PLAN NG tube placed placed on wall intermittent suction IR placed pigtail for intraperitoneal abscess CT abdomen pelvis ordered Appreciate surgery recommendations Continue IV antibiotics, IV pain meds Continue bowel regimen IV fluids. PT OT Per surgery for DVT prophylaxis ADA diet Full code Discussed with RN and SW Disposition inpatient care pending surgical evaluation for ileus Surrogate decision maker is the self will be dpoa History of Present Illness History of Present Illness HISTORY OF PRESENT ILLNESS: The patient is a pleasant 54-year-old female who presented to the OR with abdominal pain. She initially went to [facility]. They imaged her. She has appendicitis. She has now been transferred to our facility. We have consulted Dr. Bijan Webb 11/02/2019 No acute events overnight. Patient tolerating pigtail drainage. Patient has starting to be passing gas. Patient's chart, labs, images were reviewed and discussed with RN Vitals/I&O Vitals/I&O: Vital Signs Date Time Temp Pulse Resp B/P (MAP) Pulse Ox O2 Delivery O2 Flow Rate FiO2 11/02/19 16:31 92 Room Air 11/02/19 15:00 98.3 94 16 140/74 (96) 98.3 11/02/19 04:48 2.0 I & O 11/01/19 11/01/19 11/02/19 15:00 23:00 07:00 Intake Total 1050 ml Output Total 100 ml 30 ml Balance -100 ml 1020 ml Physical Exam Physical Exam: GEN: No apparent distress. Alert and oriented HEENT: Normal cephalic, atraumatic, external auditory canals are patent NECK: Supple, no JVD, no thyromegaly was noted LUNGS: Bilateral crackles HEART: RRR, S1, S2 present. Peripheral pulses intact, no obvious murmurs noted ABDOMEN: ` Abdomen is less distended. Dressings are clean dry and intact. Hypoactive bowel sounds EXTREMITIES: Without clubbing, cyanosis, or edema. Pedal pulses intact. Negative Homans sign General: Alert, Oriented X3, Cooperative, mild distress Heart: Regular rate, Normal S1, Normal S2 Lungs: Clear Abdomen: Soft (mildly distended but improved, less tender) Extremities: No clubbing, No cyanosis, No edema Skin: No rashes, No breakdown Comment Review of Relevant I have reviewed the following items sienna (where applicable) has been applied. Medications: Current Medications Medications (Trade) Dose Ordered Sig/Kyle Route PRN Reason Start Time Stop Time Status Last Admin Dose Admin Famotidine (Pepcid Vial) 20 mg BID IVP 11/02/19 15:00 11/02/19 14:53 Justifications for Admission Other Justification GARIMA BHAGAT MD Nov 02, 2019 19:22
[2019-11-02 19:35] VITALS: BP 147/79
[2019-11-02] MEDS: DULoxetine HCL 30 MG CAPSULE.DR PO SCH (21:06)
[2019-11-02 23:32] VITALS: BP 152/85
[2019-11-03] MEDS: IV NORMAL SALINE 1000ML BAG 1,000 ML IV SCH ×2 (00:13→11:54)
[2019-11-03] MEDS: PIPERACILLIN/TAZOBACTAM 3.375 GM in IV NORMAL SALINE 50ML 50 ML IV SCH ×4 (00:14→17:34)
[2019-11-03 03:32] VITALS: BP 148/78
[2019-11-03] MEDS: MORPHINE SULFATE 2 MG/ML VIAL. IV PRN (05:49)
[2019-11-03 07:00] VITALS: BP 130/87
--- NOTE | 2019-11-03 07:47 | PDOC ---
PROGRESS NOTES Date of Service DATE: 11/03/19 TIME: 07:47 Subjective Subjective doing better, having stools Objective Objective Vital Signs Date Time Temp Pulse Resp B/P (MAP) Pulse Ox O2 Delivery O2 Flow Rate FiO2 11/03/19 05:49 Room Air 11/03/19 03:32 98.6 84 18 148/78 (101) 93 98.6 11/02/19 04:48 2.0 Intake and Output 11/03/19 07:00 Output Total 410 ml Balance -410 ml Drainage Total 10 ml Other 400 ml # Voids 4 # Bowel Movements 1 Physical Exam Abdomen: Soft, No tenderness Assessment Assessment Appendicitis, S/P appy, abscess drainage Plan Plan of Care advance diet Comment Review of Relevant I have reviewed the following items sienna (where applicable) has been applied. Labs Microbiology 11/01/19 Blood Culture - Preliminary, Resulted NO GROWTH AFTER 2 DAYS Medications Current Medications Sodium Chloride (Normal Saline Flush) 3 ml QSHIFT PRN IV AFTER MEDS AND BLOOD DRAWS Last administered on 10/29/19at 00:59; Start 10/29/19 at 00:30 Sodium Chloride 1,000 ml @ 100 mls/hr Q10H IV Last administered on 11/03/19at 00:13; Start 10/29/19 at 00:30 Ondansetron HCl (Zofran) 4 mg PRN Q6HRS PRN IV NAUSEA/VOMITING Last administered on 11/01/19at 21:37; Start 10/29/19 at 00:30 Morphine Sulfate (Morphine Sulfate) 2 mg PRN Q2HR PRN IV PAIN Last administered on 11/03/19at 05:49; Start 10/29/19 at 00:30 Propofol (Diprivan) 200 mg STK-MED ONCE IV ; Start 10/29/19 at 08:08; Stop 10/29/19 at 08:08; Status DC Lidocaine HCl (Lidocaine Pf 2% Vial) 5 ml STK-MED ONCE .ROUTE ; Start 10/29/19 at 08:08; Stop 10/29/19 at 08:08; Status DC Rocuronium [place] (Zemuron) 50 mg STK-MED ONCE .ROUTE ; Start 10/29/19 at 08:08; Stop 10/29/19 at 08:08; Status DC Midazolam HCl (Versed) 2 mg STK-MED ONCE .ROUTE ; Start 10/29/19 at 08:08; Stop 10/29/19 at 08:08; Status DC Fentanyl Citrate (Fentanyl 5ml Vial) 250 mcg STK-MED ONCE .ROUTE ; Start 10/29/19 at 08:09; Stop 10/29/19 at 08:10; Status DC Fentanyl Citrate (Fentanyl 2ml Vial) 100 mcg STK-MED ONCE .ROUTE ; Start 10/29/19 at 08:24; Stop 10/29/19 at 08:24; Status DC Fentanyl Citrate (Fentanyl 2ml Vial) 50 mcg PACU PRN PRN IVP PAIN Last administered on 10/29/19at 10:50; Start 10/29/19 at 08:30; Stop 10/29/19 at 20:00; Status DC Ondansetron HCl (Zofran) 4 mg PRN Q6HRS PRN IV NAUSEA/VOMITING; Start 10/29/19 at 09:00; Stop 10/30/19 at 08:59; Status DC Fentanyl Citrate (Fentanyl 2ml Vial) 25 mcg PRN Q5MIN PRN IV MILD PAIN 1-3; Start 10/29/19 at 09:00; Stop 10/30/19 at 08:59; Status DC Fentanyl Citrate (Fentanyl 2ml Vial) 50 mcg PRN Q5MIN PRN IV MODERATE TO SEVERE PAIN; Start 10/29/19 at 09:00; Stop 10/30/19 at 08:59; Status DC Morphine Sulfate (Morphine Sulfate) 1 mg PRN Q10MIN PRN IV SEVERE PAIN 7-10 Last administered on 10/29/19at 11:20; Start 10/29/19 at 09:00; Stop 10/30/19 at 08:59; Status DC Ringer's Solution 1,000 ml @ 30 mls/hr Q24H IV ; Start 10/29/19 at 08:57; Stop 10/29/19 at 20:56; Status DC Hydromorphone HCl (Dilaudid) 0.5 mg PRN Q10MIN PRN IV SEV PAIN, Second choice Last administered on 10/29/19at 11:45; Start 10/29/19 at 09:00; Stop 10/30/19 at 08:59; Status DC Prochlorperazine Edisylate (Compazine) 5 mg PACU PRN PRN IV NAUSEA, MRX1 Last administered on 10/29/19at 10:55; Start 10/29/19 at 09:00; Stop 10/30/19 at 08:59; Status DC Cefazolin Sodium/ Dextrose 50 ml @ 100 mls/hr 1X ONCE IV Last administered on 10/29/19at 09:30; Start 10/29/19 at 09:00; Stop 10/29/19 at 09:29; Status DC Bupivacaine HCl/ Epinephrine Bitart (Sensorcain-Epi 0.5%-1:300955 Mpf) 30 ml STK-MED ONCE .ROUTE Last administered on 10/29/19at 09:42; Start 10/29/19 at 09:03; Stop 10/29/19 at 09:03; Status DC Neostigmine [place] (Neostigmine Methylsulfate) 5 mg STK-MED ONCE .ROUTE ; Start 10/29/19 at 09:48; Stop 10/29/19 at 09:48; Status DC Glycopyrrolate (Robinul) 1 mg STK-MED ONCE .ROUTE ; Start 10/29/19 at 09:48; Stop 10/29/19 at 09:48; Status DC Phenylephrine HCl (PHENYLEPHRINE in 0.9% NACL PF) 1 mg STK-MED ONCE IV ; Start 10/29/19 at 10:04; Stop 10/29/19 at 10:05; Status DC Sevoflurane (Ultane) 30 ml STK-MED ONCE IH ; Start 10/29/19 at 10:27; Stop 10/29/19 at 10:28; Status DC Oxycodone/ Acetaminophen (Percocet 5/325) 1 tab PRN Q4HRS PRN PO MODERATE PAIN Last administered on 10/31/19at 05:54; Start 10/29/19 at 11:00 Morphine Sulfate (Morphine Sulfate) 2 mg STK-MED ONCE .ROUTE ; Start 10/29/19 at 10:57; Stop 10/29/19 at 10:57; Status DC Piperacillin Sod/ Tazobactam Sod 3.375 gm/Sodium Chloride 50 ml @ 100 mls/hr Q6HRS IV Last administered on 11/03/19at 05:49; Start 10/29/19 at 12:00 Oxycodone/ Acetaminophen (Percocet 5/325) 2 tab PRN Q4HRS PRN PO SEVERE PAIN Last administered on 10/30/19at 12:24; Start 10/29/19 at 11:15 Prochlorperazine Edisylate (Compazine) 10 mg STK-MED ONCE .ROUTE ; Start 10/29/19 at 11:02; Stop 10/29/19 at 11:02; Status DC Hydromorphone HCl (Dilaudid) 2 mg STK-MED ONCE .ROUTE ; Start 10/29/19 at 11:07; Stop 10/29/19 at 11:07; Status DC Lactobacillus Rhamnosus (Culturelle) 1 cap BID PO Last administered on 11/02/19at 21:06; Start 10/30/19 at 21:00 Polyethylene Glycol (miraLAX PACKET) 17 gm PRN DAILY PRN PO CONSTIPATION 1ST CHOICE Last administered on 10/31/19at 07:22; Start 10/31/19 at 06:45 Senna/Docusate Sodium (Senna Plus) 1 tab PRN BID PRN PO CONSTIPATION 2ND CHOICE; Start 10/31/19 at 06:45; Stop 10/31/19 at 07:03; Status DC Senna/Docusate Sodium (Senna Plus) 1 tab BID PO Last administered on 11/02/19at 21:06; Start 10/31/19 at 09:00 Bisacodyl (Dulcolax Supp) 10 mg 1X ONCE OR Last administered on 10/31/19at 09:57; Start 10/31/19 at 08:00; Stop 10/31/19 at 08:01; Status DC Acetaminophen (Tylenol Supp) 650 mg Q4HRS PRN OR MILD PAIN / TEMP > 100.3'F Last administered on 11/01/19at 04:42; Start 10/31/19 at 19:30 Duloxetine HCl (Cymbalta) 30 mg QHS PO Last administered on 11/02/19at 21:06; Start 10/31/19 at 21:00 Iohexol (Omnipaque 300 Mg/ml) 75 ml 1X ONCE IV Last administered on 11/01/19at 10:56; Start 11/01/19 at 10:45; Stop 11/01/19 at 10:46; Status DC Info (CONTRAST GIVEN -- Rx MONITORING) 1 each PRN DAILY PRN MC SEE COMMENTS; Start 11/01/19 at 10:45; Stop 11/03/19 at 10:44 Midazolam HCl (Versed) 2 mg STK-MED ONCE .ROUTE ; Start 11/01/19 at 13:32; Stop 11/01/19 at 13:33; Status DC Fentanyl Citrate (Fentanyl 2ml Vial) 100 mcg STK-MED ONCE .ROUTE ; Start 11/01/19 at 13:32; Stop 11/01/19 at 13:33; Status DC Lidocaine HCl (Lidocaine 1% 20ml Vial) 20 ml STK-MED ONCE .ROUTE ; Start 11/01/19 at 13:38; Stop 11/01/19 at 13:38; Status DC Midazolam HCl (Versed) 2 mg 1X ONCE IV Last administered on 11/01/19at 14:28; Start 11/01/19 at 14:15; Stop 11/01/19 at 14:16; Status DC Fentanyl Citrate (Fentanyl 2ml Vial) 100 mcg 1X ONCE IV Last administered on 11/01/19at 14:29; Start 11/01/19 at 14:15; Stop 11/01/19 at 14:16; Status DC Lidocaine HCl (Lidocaine 1% 20ml Vial) 20 ml 1X ONCE INJ Last administered on 11/01/19at 14:29; Start 11/01/19 at 14:15; Stop 11/01/19 at 14:16; Status DC Famotidine (Pepcid Vial) 20 mg BID IVP Last administered on 11/02/19at 21:06; Start 11/02/19 at 15:00 Active Scripts Active Reported Tylenol (Acetaminophen) 325 Mg Tablet 650 Mg PO PRN Q6HRS PRN [Protein Supplement] [Creatine Supplement] [BCAAs Supplement] Turmeric (Turmeric Root Extract) 538 Mg Capsule 538 Mg PO DAILY Cymbalta (Duloxetine Hcl) 30 Mg Capsule. 1 Cap PO HS [many supplements] [supplements] Vitals/I & O Vital Sign - Last 24 Hours 11/02/19 11/02/19 11/02/19 11/02/19 08:00 11:00 11:28 11:46 Temp 97.8 97.8 Pulse 82 Resp 18 B/P (MAP) 122/89 (100) Pulse Ox 92 92 92 O2 Delivery Room Air Room Air Room Air Room Air 11/02/19 11/02/19 11/02/19 11/02/19 15:00 15:49 16:31 19:33 Temp 98.3 98.3 Pulse 94 Resp 16 B/P (MAP) 140/74 (96) Pulse Ox 93 92 92 O2 Delivery Room Air Room Air Room Air Room Air 11/02/19 11/02/19 11/02/19 11/02/19 19:35 20:00 20:03 23:32 Temp 99.3 98.6 99.3 98.6 Pulse 84 81 Resp 18 18 B/P (MAP) 147/79 (101) 152/85 (107) Pulse Ox 94 92 O2 Delivery Room Air Room Air Room Air Room Air 11/03/19 11/03/19 03:32 05:49 Temp 98.6 98.6 Pulse 84 Resp 18 B/P (MAP) 148/78 (101) Pulse Ox 93 O2 Delivery Room Air Room Air Intake and Output 11/02/19 11/02/19 11/03/19 15:00 23:00 07:00 Output Total 410 ml Balance -410 ml Justifications for Admission Other Justification KASHIF GARDNER MD Nov 03, 2019 07:47
[2019-11-03] MEDS: oxyCODONE/APAP 5/325 1 TAB TABLET PO PRN ×4 (08:55→22:30)
[2019-11-03] MEDS: SENNOSIDES/DOCUSATE 8.6/50MG TABLET. PO SCH ×2 (08:55→20:23)
[2019-11-03] MEDS: FAMOTIDINE 20 MG/2 ML VIAL IVP SCH ×2 (08:55→20:23)
[2019-11-03] MEDS: LACTOBACILLUS RHAMNOSUS GG 1 CAPSULE. PO SCH ×2 (08:55→20:23)
--- NOTE | 2019-11-03 10:13 | RAD ---
CT-guided, transgluteal drainage of pelvic abscess November 01, 2019 INDICATION: Pelvic abscess, status post recent appendectomy for ruptured appendicitis. Discussion: The risks and benefits of the procedure, including but not limited to, bleeding and infection were discussed patient. Informed consent was obtained. The patient was brought to the CT scanner and placed in the prone position. A timeout procedure was performed. CT imaging redemonstrates a pelvic abscess anterior to the rectum. A left transgluteal approach was employed. 1% lidocaine was administered to the skin and subcutaneous tissues. Under intermittent CT guidance a 17-gauge needle was advanced into the abscess. A guidewire was advanced to the abscess over which, following dilatation, a 10 Urdu drain was placed. Approximately 150 cc of turbid fluid was aspirated, some of which was sent to the lab for Gram stain and culture. The catheter was secured in place. Sterile dressings were applied. No immediate complications were identified. The procedure was performed under conscious sedation including continuous cardiopulmonary monitoring via a dedicated sedation nurse. [id number] sedation time: 26 minutes. IMPRESSION: CT-guided drainage, pelvic abscess PQRS Compliance Statement: One or more of the following individualized dose reduction techniques were utilized for this examination: 1. Automated exposure control 2. Adjustment of the mA and/or kV according to patient size 3. Use of iterative reconstruction technique
--- NOTE | 2019-11-03 10:19 | NUR ---
SW following. Discussed with RN, pt from home, NG removed today, clear liquid diet. RN advised no SW needs, anticipate possible discharge in the next day or two. SW will continue to follow.
[2019-11-03 11:00] VITALS: BP 134/70
--- NOTE | 2019-11-03 12:22 | NUR ---
flushed pt HANG drain at 0800 with 10cc of normal saline
[2019-11-03 15:00] VITALS: BP 144/88
--- NOTE | 2019-11-03 17:03 | PDOC ---
PROGRESS NOTES Date of Service: DATE: 11/03/19 TIME: 17:03 Chief Complaint Chief Complaint ASSESSMENT AND PLAN: Appendicitis., ruptured status post laparoscopic appendectomy on 10/30/2019 Postoperative ileus Intra-abdominal abscess Obesity class I sepsis PLAN NG tube placed placed on wall intermittent suction IR placed pigtail for intraperitoneal abscess CT abdomen pelvis ordered Appreciate surgery recommendations Continue IV antibiotics, IV pain meds Continue bowel regimen IV fluids. PT OT Per surgery for DVT prophylaxis ADA diet Full code Discussed with RN and SW Disposition inpatient care pending surgical evaluation for ileus Surrogate decision maker is the self will be dpoa History of Present Illness History of Present Illness HISTORY OF PRESENT ILLNESS: The patient is a pleasant 54-year-old female who presented to the OR with abdominal pain. She initially went to [facility]. They imaged her. She has appendicitis. She has now been transferred to our facility. We have consulted Dr. Bijan Webb 11/02/2019 No acute events overnight. Patient tolerating pigtail drainage. Patient has starting to be passing gas. Patient's chart, labs, images were reviewed and discussed with RN 11/03/2019 Patient states she is tolerating tolerating diet, and has had multiple bowel movement. She is concerned about becoming addicted to pain medications, but I discussed small dosage of narcotics would be beneficial for the treatment of her pain. Vitals Vitals Vital Signs Date Time Temp Pulse Resp B/P (MAP) Pulse Ox O2 Delivery O2 Flow Rate FiO2 11/03/19 15:00 98.4 62 20 144/88 (106) 94 Room Air 98.4 Physical Exam Physical Exam GEN: No apparent distress. Alert and oriented HEENT: Normal cephalic, atraumatic, external auditory canals are patent NECK: Supple, no JVD, no thyromegaly was noted LUNGS: Bilateral crackles HEART: RRR, S1, S2 present. Peripheral pulses intact, no obvious murmurs noted ABDOMEN: ` Abdomen is less distended. Dressings are clean dry and intact. Hypoactive bowel sounds EXTREMITIES: Without clubbing, cyanosis, or edema. Pedal pulses intact. Negative Homans sign General: Alert, Oriented X3, Cooperative, mild distress Heart: Regular rate, Normal S1, Normal S2 Lungs: Clear Abdomen: Soft, No tenderness Extremities: No clubbing, No cyanosis, No edema Skin: No rashes, No breakdown Review of Systems Review of Systems Abdominal pain. Denies fever, denies vomiting, denies shortness of breath. Assessment and Plan Assessmemt and Plan Status post laparoscopic appendectomy Status post CT-guided abscess drainage Plan: Patient is progressing as expected. Pain management. Will follow surgery recommendations. Having bowel movements. Comment Review of Relevant I have reviewed the following items sienna (where applicable) has been applied. Labs Microbiology 11/01/19 Gram Stain - Final, Resulted 11/01/19 Aerobic and Anaerobic Culture - Preliminary, Resulted 11/01/19 Blood Culture - Preliminary, Resulted NO GROWTH AFTER 2 DAYS Medications Current Medications Sodium Chloride (Normal Saline Flush) 3 ml QSHIFT PRN IV AFTER MEDS AND BLOOD DRAWS Last administered on 10/29/19at 00:59; Start 10/29/19 at 00:30 Sodium Chloride 1,000 ml @ 60 mls/hr [id number] IV Last administered on 11/03/19at 11:54; Start 10/29/19 at 00:30 Ondansetron HCl (Zofran) 4 mg PRN Q6HRS PRN IV NAUSEA/VOMITING Last administered on 11/01/19at 21:37; Start 10/29/19 at 00:30 Morphine Sulfate (Morphine Sulfate) 2 mg PRN Q2HR PRN IV PAIN Last administered on 11/03/19at 05:49; Start 10/29/19 at 00:30 Propofol (Diprivan) 200 mg STK-MED ONCE IV ; Start 10/29/19 at 08:08; Stop 10/29/19 at 08:08; Status DC Lidocaine HCl (Lidocaine Pf 2% Vial) 5 ml STK-MED ONCE .ROUTE ; Start 10/29/19 at 08:08; Stop 10/29/19 at 08:08; Status DC Rocuronium [place] (Zemuron) 50 mg STK-MED ONCE .ROUTE ; Start 10/29/19 at 08:08; Stop 10/29/19 at 08:08; Status DC Midazolam HCl (Versed) 2 mg STK-MED ONCE .ROUTE ; Start 10/29/19 at 08:08; Stop 10/29/19 at 08:08; Status DC Fentanyl Citrate (Fentanyl 5ml Vial) 250 mcg STK-MED ONCE .ROUTE ; Start 10/29/19 at 08:09; Stop 10/29/19 at 08:10; Status DC Fentanyl Citrate (Fentanyl 2ml Vial) 100 mcg STK-MED ONCE .ROUTE ; Start 10/29/19 at 08:24; Stop 10/29/19 at 08:24; Status DC Fentanyl Citrate (Fentanyl 2ml Vial) 50 mcg PACU PRN PRN IVP PAIN Last administered on 10/29/19at 10:50; Start 10/29/19 at 08:30; Stop 10/29/19 at 20:00; Status DC Ondansetron HCl (Zofran) 4 mg PRN Q6HRS PRN IV NAUSEA/VOMITING; Start 10/29/19 at 09:00; Stop 10/30/19 at 08:59; Status DC Fentanyl Citrate (Fentanyl 2ml Vial) 25 mcg PRN Q5MIN PRN IV MILD PAIN 1-3; Start 10/29/19 at 09:00; Stop 10/30/19 at 08:59; Status DC Fentanyl Citrate (Fentanyl 2ml Vial) 50 mcg PRN Q5MIN PRN IV MODERATE TO SEVERE PAIN; Start 10/29/19 at 09:00; Stop 10/30/19 at 08:59; Status DC Morphine Sulfate (Morphine Sulfate) 1 mg PRN Q10MIN PRN IV SEVERE PAIN 7-10 Last administered on 10/29/19at 11:20; Start 10/29/19 at 09:00; Stop 10/30/19 at 08:59; Status DC Ringer's Solution 1,000 ml @ 30 mls/hr Q24H IV ; Start 10/29/19 at 08:57; Stop 10/29/19 at 20:56; Status DC Hydromorphone HCl (Dilaudid) 0.5 mg PRN Q10MIN PRN IV SEV PAIN, Second choice Last administered on 10/29/19at 11:45; Start 10/29/19 at 09:00; Stop 10/30/19 at 08:59; Status DC Prochlorperazine Edisylate (Compazine) 5 mg PACU PRN PRN IV NAUSEA, MRX1 Last administered on 10/29/19at 10:55; Start 10/29/19 at 09:00; Stop 10/30/19 at 08:59; Status DC Cefazolin Sodium/ Dextrose 50 ml @ 100 mls/hr 1X ONCE IV Last administered on 10/29/19at 09:30; Start 10/29/19 at 09:00; Stop 10/29/19 at 09:29; Status DC Bupivacaine HCl/ Epinephrine Bitart (Sensorcain-Epi 0.5%-1:[id number] Mpf) 30 ml STK-MED ONCE .ROUTE Last administered on 10/29/19at 09:42; Start 10/29/19 at 09:03; Stop 10/29/19 at 09:03; Status DC Neostigmine [place] (Neostigmine Methylsulfate) 5 mg STK-MED ONCE .ROUTE ; Start 10/29/19 at 09:48; Stop 10/29/19 at 09:48; Status DC Glycopyrrolate (Robinul) 1 mg STK-MED ONCE .ROUTE ; Start 10/29/19 at 09:48; Stop 10/29/19 at 09:48; Status DC Phenylephrine HCl (PHENYLEPHRINE in 0.9% NACL PF) 1 mg STK-MED ONCE IV ; Start 10/29/19 at 10:04; Stop 10/29/19 at 10:05; Status DC Sevoflurane (Ultane) 30 ml STK-MED ONCE IH ; Start 10/29/19 at 10:27; Stop 10/29/19 at 10:28; Status DC Oxycodone/ Acetaminophen (Percocet 5/325) 1 tab PRN Q4HRS PRN PO MODERATE PAIN Last administered on 11/03/19at 08:55; Start 10/29/19 at 11:00 Morphine Sulfate (Morphine Sulfate) 2 mg STK-MED ONCE .ROUTE ; Start 10/29/19 at 10:57; Stop 10/29/19 at 10:57; Status DC Piperacillin Sod/ Tazobactam Sod 3.375 gm/Sodium Chloride 50 ml @ 100 mls/hr Q6HRS IV Last administered on 11/03/19at 11:55; Start 10/29/19 at 12:00 Oxycodone/ Acetaminophen (Percocet 5/325) 2 tab PRN Q4HRS PRN PO SEVERE PAIN Last administered on 11/03/19at 13:17; Start 10/29/19 at 11:15 Prochlorperazine Edisylate (Compazine) 10 mg STK-MED ONCE .ROUTE ; Start 10/29/19 at 11:02; Stop 10/29/19 at 11:02; Status DC Hydromorphone HCl (Dilaudid) 2 mg STK-MED ONCE .ROUTE ; Start 10/29/19 at 11:07; Stop 10/29/19 at 11:07; Status DC Lactobacillus Rhamnosus (Culturelle) 1 cap BID PO Last administered on 11/03/19at 08:55; Start 10/30/19 at 21:00 Polyethylene Glycol (miraLAX PACKET) 17 gm PRN DAILY PRN PO CONSTIPATION 1ST CHOICE Last administered on 10/31/19at 07:22; Start 10/31/19 at 06:45 Senna/Docusate Sodium (Senna Plus) 1 tab PRN BID PRN PO CONSTIPATION 2ND CHOICE; Start 10/31/19 at 06:45; Stop 10/31/19 at 07:03; Status DC Senna/Docusate Sodium (Senna Plus) 1 tab BID PO Last administered on 11/03/19at 08:55; Start 10/31/19 at 09:00 Bisacodyl (Dulcolax Supp) 10 mg 1X ONCE SD Last administered on 10/31/19at 09:57; Start 10/31/19 at 08:00; Stop 10/31/19 at 08:01; Status DC Acetaminophen (Tylenol Supp) 650 mg Q4HRS PRN SD MILD PAIN / TEMP > 100.3'F Last administered on 11/01/19at 04:42; Start 10/31/19 at 19:30 Duloxetine HCl (Cymbalta) 30 mg QHS PO Last administered on 11/02/19at 21:06; Start 10/31/19 at 21:00 Iohexol (Omnipaque 300 Mg/ml) 75 ml 1X ONCE IV Last administered on 11/01/19at 10:56; Start 11/01/19 at 10:45; Stop 11/01/19 at 10:46; Status DC Info (CONTRAST GIVEN -- Rx MONITORING) 1 each PRN DAILY PRN MC SEE COMMENTS; Start 11/01/19 at 10:45; Stop 11/03/19 at 10:44; Status DC Midazolam HCl (Versed) 2 mg STK-MED ONCE .ROUTE ; Start 11/01/19 at 13:32; Stop 11/01/19 at 13:33; Status DC Fentanyl Citrate (Fentanyl 2ml Vial) 100 mcg STK-MED ONCE .ROUTE ; Start 11/01/19 at 13:32; Stop 11/01/19 at 13:33; Status DC Lidocaine HCl (Lidocaine 1% 20ml Vial) 20 ml STK-MED ONCE .ROUTE ; Start 11/01/19 at 13:38; Stop 11/01/19 at 13:38; Status DC Midazolam HCl (Versed) 2 mg 1X ONCE IV Last administered on 11/01/19at 14:28; Start 11/01/19 at 14:15; Stop 11/01/19 at 14:16; Status DC Fentanyl Citrate (Fentanyl 2ml Vial) 100 mcg 1X ONCE IV Last administered on 11/01/19at 14:29; Start 11/01/19 at 14:15; Stop 11/01/19 at 14:16; Status DC Lidocaine HCl (Lidocaine 1% 20ml Vial) 20 ml 1X ONCE INJ Last administered on 11/01/19at 14:29; Start 11/01/19 at 14:15; Stop 11/01/19 at 14:16; Status DC Famotidine (Pepcid Vial) 20 mg BID IVP Last administered on 11/03/19at 08:55; Start 11/02/19 at 15:00 Active Scripts Active Reported Tylenol (Acetaminophen) 325 Mg Tablet 650 Mg PO PRN Q6HRS PRN [Protein Supplement] [Creatine Supplement] [BCAAs Supplement] Turmeric (Turmeric Root Extract) 538 Mg Capsule 538 Mg PO DAILY Cymbalta (Duloxetine Hcl) 30 Mg Capsule. 1 Cap PO HS [many supplements] [supplements] Vitals/I & O Vital Sign - Last 24 Hours 11/02/19 11/02/19 11/02/19 11/02/19 19:33 19:35 20:00 20:03 Temp 99.3 99.3 Pulse 84 Resp 18 B/P (MAP) 147/79 (101) Pulse Ox 94 O2 Delivery Room Air Room Air Room Air Room Air 11/02/19 11/03/19 11/03/19 11/03/19 23:32 03:32 05:49 07:00 Temp 98.6 98.6 98.6 98.6 Pulse 81 84 Resp 18 18 B/P (MAP) 152/85 (107) 148/78 (101) Pulse Ox 92 93 O2 Delivery Room Air Room Air Room Air Room Air 11/03/19 11/03/19 11/03/19 11/03/19 07:00 08:00 08:55 10:00 Temp 98.9 98.9 Pulse 75 Resp 18 B/P (MAP) 130/87 (101) Pulse Ox 96 O2 Delivery Room Air Room Air Room Air Room Air 11/03/19 11/03/19 11/03/19 11/03/19 11:00 13:17 14:40 15:00 Temp 98.0 98.4 98.0 98.4 Pulse 80 62 Resp 18 20 B/P (MAP) 134/70 (91) 144/88 (106) Pulse Ox 97 94 O2 Delivery Room Air Room Air Room Air Room Air Intake and Output 11/02/19 11/02/19 11/03/19 15:00 23:00 07:00 Output Total 410 ml Balance -410 ml Justicifation of Admission Dx: Justifications for Admission: Justification of Admission Dx: Yes GERALD VILLATORO MD Nov 03, 2019 17:03
[2019-11-03 19:00] VITALS: BP 129/73
[2019-11-03] MEDS: DULoxetine HCL 30 MG CAPSULE.DR PO SCH (20:23)
[2019-11-03 23:00] VITALS: BP 123/93
[2019-11-04] MEDS: PIPERACILLIN/TAZOBACTAM 3.375 GM in IV NORMAL SALINE 50ML 50 ML IV SCH ×4 (00:39→18:06)
[2019-11-04 03:00] VITALS: BP 133/81
[2019-11-04] MEDS: oxyCODONE/APAP 5/325 1 TAB TABLET PO PRN ×4 (05:13→18:06)
[2019-11-04] MEDS: IV NORMAL SALINE 1000ML BAG 1,000 ML IV SCH ×2 (05:28→21:37)
[2019-11-04 06:37] LABS: BASO % 0 % (0-3); EOS # 0.2 x10^3/uL (0.0-0.7); EOS % 2 % (0-3); HEMATOCRIT 34.7 % (36.0-47.0); HEMOGLOBIN 11.7 g/dL (12.0-15.5); LYMPH # 1.7 x10^3/uL (1.0-4.8); LYMPH % 16 % (24-48); MEAN CORPUSCULAR HEMOGLOBIN 29 pg (25-35); MEAN CORPUSCULAR HGB CONC 34 g/dL (31-37); MEAN CORPUSCULAR VOLUME 86 fL (79-100); MONO # 1.5 x10^3/uL (0.0-1.1); MONO % 15 % (0-9); NEUT % 67 % (31-73); PLATELET COUNT 347 x10^3/uL (140-400); RED BLOOD COUNT 4.06 x10^6/uL (3.50-5.40); RED CELL DISTRIBUTION WIDTH 13.4 % (11.5-14.5); WHITE BLOOD COUNT 10.5 x10^3/uL (4.0-11.0)
[2019-11-04 06:51] LABS: CALCIUM 8.9 mg/dL (8.5-10.1); CREATININE 0.6 mg/dL (0.6-1.0)
[2019-11-04 06:57] LABS: POTASSIUM 2.7 mmol/L (3.5-5.1)
[2019-11-04] MEDS ORDERED: POTASSIUM CHLORIDE 20 MEQ TABLET.ER. PO ONE ×2 (07:30→11:15)
[2019-11-04 07:57] VITALS: BP 135/79
[2019-11-04] MEDS: FAMOTIDINE 20 MG/2 ML VIAL IVP SCH (08:02)
[2019-11-04] MEDS: LACTOBACILLUS RHAMNOSUS GG 1 CAPSULE. PO SCH ×2 (08:02→21:26)
[2019-11-04] MEDS: MORPHINE SULFATE 2 MG/ML VIAL. IV PRN (08:03)
[2019-11-04] MEDS: SENNOSIDES/DOCUSATE 8.6/50MG TABLET. PO SCH ×2 (09:00→21:25)
--- NOTE | 2019-11-04 09:47 | NUR ---
SW following. Discussed with RN, pt from home, room air, clear liquid diet. RN advised no SW needs at this time, SW will continue to follow.
[2019-11-04 11:00] VITALS: BP 139/76
--- NOTE | 2019-11-04 12:03 | PDOC ---
TEODORO MARTIN L[employer]ER 11/04/19 1203: SURGICAL PROGRESS NOTE DATE: 11/04/19 TIME: 12:02 Subjective tolerating diet having stools feeling better some itching around drain site Vital Signs Vital Signs Date Time Temp Pulse Resp B/P (MAP) Pulse Ox O2 Delivery O2 Flow Rate FiO2 11/04/19 11:00 99.0 67 20 139/76 (97) 93 Room Air 99.0 I&O Intake and Output 11/04/19 07:00 Intake Total 1180 ml Output Total 70 ml Balance 1110 ml Intake Oral 1180 ml Gastric Drainage Total 0 ml Drainage Total 70 ml # Voids 4 General: Alert, Oriented X3, Cooperative Abdomen: Soft, Other (ND, drain serous, cloudy) Labs Laboratory Tests Test 11/04/19 05:20 11/04/19 05:25 11/04/19 10:25 Sodium Level 142 mmol/L (136-145) Potassium Level 2.7 mmol/L (3.5-5.1) 2.8 mmol/L (3.5-5.1) Chloride Level 103 mmol/L (98-107) Carbon Dioxide Level 29 mmol/L (21-32) Anion Gap 10 (6-14) Blood Urea Nitrogen 4 mg/dL (7-20) Creatinine 0.6 mg/dL (0.6-1.0) Estimated GFR (Cockcroft-Gault) 127.0 Glucose Level 85 mg/dL (70-99) Calcium Level 8.9 mg/dL (8.5-10.1) White Blood Count 10.5 x10^3/uL (4.0-11.0) Red Blood Count 4.06 x10^6/uL (3.50-5.40) Hemoglobin 11.7 g/dL (12.0-15.5) Hematocrit 34.7 % (36.0-47.0) Mean Corpuscular Volume 86 fL (79-100) Mean Corpuscular Hemoglobin 29 pg (25-35) Mean Corpuscular Hemoglobin Concent 34 g/dL (31-37) Red Cell Distribution Width 13.4 % (11.5-14.5) Platelet Count 347 x10^3/uL (140-400) Neutrophils (%) (Auto) 67 % (31-73) Lymphocytes (%) (Auto) 16 % (24-48) Monocytes (%) (Auto) 15 % (0-9) Eosinophils (%) (Auto) 2 % (0-3) Basophils (%) (Auto) 0 % (0-3) Neutrophils # (Auto) 7.0 x10^3/uL (1.8-7.7) Lymphocytes # (Auto) 1.7 x10^3/uL (1.0-4.8) Monocytes # (Auto) 1.5 x10^3/uL (0.0-1.1) Eosinophils # (Auto) 0.2 x10^3/uL (0.0-0.7) Basophils # (Auto) 0.0 x10^3/uL (0.0-0.2) Laboratory Tests Test 11/04/19 05:20 11/04/19 05:25 11/04/19 10:25 Sodium Level 142 mmol/L (136-145) Potassium Level 2.7 mmol/L (3.5-5.1) 2.8 mmol/L (3.5-5.1) Chloride Level 103 mmol/L (98-107) Carbon Dioxide Level 29 mmol/L (21-32) Anion Gap 10 (6-14) Blood Urea Nitrogen 4 mg/dL (7-20) Creatinine 0.6 mg/dL (0.6-1.0) Estimated GFR (Cockcroft-Gault) 127.0 Glucose Level 85 mg/dL (70-99) Calcium Level 8.9 mg/dL (8.5-10.1) White Blood Count 10.5 x10^3/uL (4.0-11.0) Red Blood Count 4.06 x10^6/uL (3.50-5.40) Hemoglobin 11.7 g/dL (12.0-15.5) Hematocrit 34.7 % (36.0-47.0) Mean Corpuscular Volume 86 fL (79-100) Mean Corpuscular Hemoglobin 29 pg (25-35) Mean Corpuscular Hemoglobin Concent 34 g/dL (31-37) Red Cell Distribution Width 13.4 % (11.5-14.5) Platelet Count 347 x10^3/uL (140-400) Neutrophils (%) (Auto) 67 % (31-73) Lymphocytes (%) (Auto) 16 % (24-48) Monocytes (%) (Auto) 15 % (0-9) Eosinophils (%) (Auto) 2 % (0-3) Basophils (%) (Auto) 0 % (0-3) Neutrophils # (Auto) 7.0 x10^3/uL (1.8-7.7) Lymphocytes # (Auto) 1.7 x10^3/uL (1.0-4.8) Monocytes # (Auto) 1.5 x10^3/uL (0.0-1.1) Eosinophils # (Auto) 0.2 x10^3/uL (0.0-0.7) Basophils # (Auto) 0.0 x10^3/uL (0.0-0.2) Assessment/Plan drain, abx, full liquids Justicifation of Admission Dx: Justifications for Admission: Justification of Admission Dx: Yes KASHIF GARDNER MD 11/04/19 1259: SURGICAL PROGRESS NOTE Assessment/Plan As above, improving TEODORO MARTIN APRN Nov 04, 2019 12:03 KASHIF GARDNER MD Nov 04, 2019 12:59
--- NOTE | 2019-11-04 14:12 | PDOC ---
PROGRESS NOTES Date of Service: DATE: 11/04/19 TIME: 14:03 Chief Complaint Chief Complaint Appendicitis, ruptured status post laparoscopic appendectomy on 10/30/2019 Postoperative ileus Intra-abdominal abscess Obesity class I sepsis History of Present Illness History of Present Illness HISTORY OF PRESENT ILLNESS: The patient is a pleasant 54-year-old female who presented to the OR with abdominal pain. She initially went to [facility]. They imaged her. She has appendicitis. She has now been transferred to our facility. We have consulted Dr. Bijan Webb 11/02/2019 No acute events overnight. Patient tolerating pigtail drainage. Patient has starting to be passing gas. Patient's chart, labs, images were reviewed and discussed with RN 11/03/2019 Patient states she is tolerating tolerating diet, and has had multiple bowel movement. She is concerned about becoming addicted to pain medications, but I discussed small dosage of narcotics would be beneficial for the treatment of her pain. 11/04/2019 Patient states feeling better today, still some abdominal pain with movement. Pigtail drain in place without much output. With reported discharge. Discussed with RN. Vitals Vitals Vital Signs Date Time Temp Pulse Resp B/P (MAP) Pulse Ox O2 Delivery O2 Flow Rate FiO2 11/04/19 13:19 Room Air 11/04/19 11:00 99.0 67 20 139/76 (97) 93 99.0 Physical Exam Physical Exam GEN: No apparent distress. Alert and oriented HEENT: Normal cephalic, atraumatic, external auditory canals are patent NECK: Supple, no JVD, no thyromegaly was noted LUNGS: Bilateral crackles HEART: RRR, S1, S2 present. Peripheral pulses intact, no obvious murmurs noted ABDOMEN: ` Abdomen is less distended. Dressings are clean dry and intact. Hypoactive bowel sounds EXTREMITIES: Without clubbing, cyanosis, or edema. Pedal pulses intact. Neg ative Homans sign General: Alert, Oriented X3, Cooperative Heart: Regular rate, Normal S1, Normal S2 Lungs: Clear Abdomen: Soft, Other (ND, drain serous, cloudy) Extremities: No clubbing, No cyanosis, No edema Skin: No rashes, No breakdown Labs LABS Laboratory Tests Test 11/04/19 05:20 11/04/19 05:25 11/04/19 10:25 Sodium Level 142 mmol/L (136-145) Potassium Level 2.7 mmol/L (3.5-5.1) 2.8 mmol/L (3.5-5.1) Chloride Level 103 mmol/L (98-107) Carbon Dioxide Level 29 mmol/L (21-32) Anion Gap 10 (6-14) Blood Urea Nitrogen 4 mg/dL (7-20) Creatinine 0.6 mg/dL (0.6-1.0) Estimated GFR (Cockcroft-Gault) 127.0 Glucose Level 85 mg/dL (70-99) Calcium Level 8.9 mg/dL (8.5-10.1) White Blood Count 10.5 x10^3/uL (4.0-11.0) Red Blood Count 4.06 x10^6/uL (3.50-5.40) Hemoglobin 11.7 g/dL (12.0-15.5) Hematocrit 34.7 % (36.0-47.0) Mean Corpuscular Volume 86 fL (79-100) Mean Corpuscular Hemoglobin 29 pg (25-35) Mean Corpuscular Hemoglobin Concent 34 g/dL (31-37) Red Cell Distribution Width 13.4 % (11.5-14.5) Platelet Count 347 x10^3/uL (140-400) Neutrophils (%) (Auto) 67 % (31-73) Lymphocytes (%) (Auto) 16 % (24-48) Monocytes (%) (Auto) 15 % (0-9) Eosinophils (%) (Auto) 2 % (0-3) Basophils (%) (Auto) 0 % (0-3) Neutrophils # (Auto) 7.0 x10^3/uL (1.8-7.7) Lymphocytes # (Auto) 1.7 x10^3/uL (1.0-4.8) Monocytes # (Auto) 1.5 x10^3/uL (0.0-1.1) Eosinophils # (Auto) 0.2 x10^3/uL (0.0-0.7) Basophils # (Auto) 0.0 x10^3/uL (0.0-0.2) Review of Systems Review of Systems Abdominal pain. Denies nausea, denies vomiting, denies fevers, denies shortness of breath. Assessment and Plan Assessmemt and Plan Acute appendicitis, POA Ileus Plan: Nausea, vomiting, constipation resolved. Continue bowel regimen, IV fluids. Comment Review of Relevant I have reviewed the following items sienna (where applicable) has been applied. Labs Laboratory Tests Test 11/04/19 05:20 11/04/19 05:25 11/04/19 10:25 Sodium Level 142 mmol/L (136-145) Potassium Level 2.7 mmol/L (3.5-5.1) 2.8 mmol/L (3.5-5.1) Chloride Level 103 mmol/L (98-107) Carbon Dioxide Level 29 mmol/L (21-32) Anion Gap 10 (6-14) Blood Urea Nitrogen 4 mg/dL (7-20) Creatinine 0.6 mg/dL (0.6-1.0) Estimated GFR (Cockcroft-Gault) 127.0 Glucose Level 85 mg/dL (70-99) Calcium Level 8.9 mg/dL (8.5-10.1) White Blood Count 10.5 x10^3/uL (4.0-11.0) Red Blood Count 4.06 x10^6/uL (3.50-5.40) Hemoglobin 11.7 g/dL (12.0-15.5) Hematocrit 34.7 % (36.0-47.0) Mean Corpuscular Volume 86 fL (79-100) Mean Corpuscular Hemoglobin 29 pg (25-35) Mean Corpuscular Hemoglobin Concent 34 g/dL (31-37) Red Cell Distribution Width 13.4 % (11.5-14.5) Platelet Count 347 x10^3/uL (140-400) Neutrophils (%) (Auto) 67 % (31-73) Lymphocytes (%) (Auto) 16 % (24-48) Monocytes (%) (Auto) 15 % (0-9) Eosinophils (%) (Auto) 2 % (0-3) Basophils (%) (Auto) 0 % (0-3) Neutrophils # (Auto) 7.0 x10^3/uL (1.8-7.7) Lymphocytes # (Auto) 1.7 x10^3/uL (1.0-4.8) Monocytes # (Auto) 1.5 x10^3/uL (0.0-1.1) Eosinophils # (Auto) 0.2 x10^3/uL (0.0-0.7) Basophils # (Auto) 0.0 x10^3/uL (0.0-0.2) Laboratory Tests Test 11/04/19 05:20 11/04/19 05:25 11/04/19 10:25 Sodium Level 142 mmol/L (136-145) Potassium Level 2.7 mmol/L (3.5-5.1) 2.8 mmol/L (3.5-5.1) Chloride Level 103 mmol/L (98-107) Carbon Dioxide Level 29 mmol/L (21-32) Anion Gap 10 (6-14) Blood Urea Nitrogen 4 mg/dL (7-20) Creatinine 0.6 mg/dL (0.6-1.0) Estimated GFR (Cockcroft-Gault) 127.0 Glucose Level 85 mg/dL (70-99) Calcium Level 8.9 mg/dL (8.5-10.1) White Blood Count 10.5 x10^3/uL (4.0-11.0) Red Blood Count 4.06 x10^6/uL (3.50-5.40) Hemoglobin 11.7 g/dL (12.0-15.5) Hematocrit 34.7 % (36.0-47.0) Mean Corpuscular Volume 86 fL (79-100) Mean Corpuscular Hemoglobin 29 pg (25-35) Mean Corpuscular Hemoglobin Concent 34 g/dL (31-37) Red Cell Distribution Width 13.4 % (11.5-14.5) Platelet Count 347 x10^3/uL (140-400) Neutrophils (%) (Auto) 67 % (31-73) Lymphocytes (%) (Auto) 16 % (24-48) Monocytes (%) (Auto) 15 % (0-9) Eosinophils (%) (Auto) 2 % (0-3) Basophils (%) (Auto) 0 % (0-3) Neutrophils # (Auto) 7.0 x10^3/uL (1.8-7.7) Lymphocytes # (Auto) 1.7 x10^3/uL (1.0-4.8) Monocytes # (Auto) 1.5 x10^3/uL (0.0-1.1) Eosinophils # (Auto) 0.2 x10^3/uL (0.0-0.7) Basophils # (Auto) 0.0 x10^3/uL (0.0-0.2) Microbiology 11/01/19 Gram Stain - Final, Resulted 11/01/19 Aerobic and Anaerobic Culture - Preliminary, Resulted 11/01/19 Antimicrobic Susceptibility - Preliminary, Resulted 11/01/19 Blood Culture - Preliminary, Resulted NO GROWTH AFTER 3 DAYS Medications Current Medications Sodium Chloride (Normal Saline Flush) 3 ml QSHIFT PRN IV AFTER MEDS AND BLOOD DRAWS Last administered on 10/29/19at 00:59; Start 10/29/19 at 00:30 Sodium Chloride 1,000 ml @ 60 mls/hr [id number] IV Last administered on 11/04/19at 05:28; Start 10/29/19 at 00:30 Ondansetron HCl (Zofran) 4 mg PRN Q6HRS PRN IV NAUSEA/VOMITING Last administered on 11/01/19at 21:37; Start 10/29/19 at 00:30 Morphine Sulfate (Morphine Sulfate) 2 mg PRN Q2HR PRN IV PAIN Last administered on 11/04/19at 08:03; Start 10/29/19 at 00:30 Propofol (Diprivan) 200 mg STK-MED ONCE IV ; Start 10/29/19 at 08:08; Stop 10/29/19 at 08:08; Status DC Lidocaine HCl (Lidocaine Pf 2% Vial) 5 ml STK-MED ONCE .ROUTE ; Start 10/29/19 at 08:08; Stop 10/29/19 at 08:08; Status DC Rocuronium North Powder (Zemuron) 50 mg STK-MED ONCE .ROUTE ; Start 10/29/19 at 08:08; Stop 10/29/19 at 08:08; Status DC Midazolam HCl (Versed) 2 mg STK-MED ONCE .ROUTE ; Start 10/29/19 at 08:08; Stop 10/29/19 at 08:08; Status DC Fentanyl Citrate (Fentanyl 5ml Vial) 250 mcg STK-MED ONCE .ROUTE ; Start 10/29/19 at 08:09; Stop 10/29/19 at 08:10; Status DC Fentanyl Citrate (Fentanyl 2ml Vial) 100 mcg STK-MED ONCE .ROUTE ; Start 10/29/19 at 08:24; Stop 10/29/19 at 08:24; Status DC Fentanyl Citrate (Fentanyl 2ml Vial) 50 mcg PACU PRN PRN IVP PAIN Last administered on 10/29/19at 10:50; Start 10/29/19 at 08:30; Stop 10/29/19 at 20:00; Status DC Ondansetron HCl (Zofran) 4 mg PRN Q6HRS PRN IV NAUSEA/VOMITING; Start 10/29/19 at 09:00; Stop 10/30/19 at 08:59; Status DC Fentanyl Citrate (Fentanyl 2ml Vial) 25 mcg PRN Q5MIN PRN IV MILD PAIN 1-3; Start 10/29/19 at 09:00; Stop 10/30/19 at 08:59; Status DC Fentanyl Citrate (Fentanyl 2ml Vial) 50 mcg PRN Q5MIN PRN IV MODERATE TO SEVERE PAIN; Start 10/29/19 at 09:00; Stop 10/30/19 at 08:59; Status DC Morphine Sulfate (Morphine Sulfate) 1 mg PRN Q10MIN PRN IV SEVERE PAIN 7-10 Last administered on 10/29/19at 11:20; Start 10/29/19 at 09:00; Stop 10/30/19 at 08:59; Status DC Ringer's Solution 1,000 ml @ 30 mls/hr Q24H IV ; Start 10/29/19 at 08:57; Stop 10/29/19 at 20:56; Status DC Hydromorphone HCl (Dilaudid) 0.5 mg PRN Q10MIN PRN IV SEV PAIN, Second choice Last administered on 10/29/19at 11:45; Start 10/29/19 at 09:00; Stop 10/30/19 at 08:59; Status DC Prochlorperazine Edisylate (Compazine) 5 mg PACU PRN PRN IV NAUSEA, MRX1 Last administered on 10/29/19at 10:55; Start 10/29/19 at 09:00; Stop 10/30/19 at 08:59; Status DC Cefazolin Sodium/ Dextrose 50 ml @ 100 mls/hr 1X ONCE IV Last administered on 10/29/19at 09:30; Start 10/29/19 at 09:00; Stop 10/29/19 at 09:29; Status DC Bupivacaine HCl/ Epinephrine Bitart (Sensorcain-Epi 0.5%-1:[id number] Mpf) 30 ml STK-MED ONCE .ROUTE Last administered on 10/29/19at 09:42; Start 10/29/19 at 09:03; Stop 10/29/19 at 09:03; Status DC Neostigmine North Powder (Neostigmine Methylsulfate) 5 mg STK-MED ONCE .ROUTE ; Start 10/29/19 at 09:48; Stop 10/29/19 at 09:48; Status DC Glycopyrrolate (Robinul) 1 mg STK-MED ONCE .ROUTE ; Start 10/29/19 at 09:48; Stop 10/29/19 at 09:48; Status DC Phenylephrine HCl (PHENYLEPHRINE in 0.9% NACL PF) 1 mg STK-MED ONCE IV ; Start 10/29/19 at 10:04; Stop 10/29/19 at 10:05; Status DC Sevoflurane (Ultane) 30 ml STK-MED ONCE IH ; Start 10/29/19 at 10:27; Stop 10/29/19 at 10:28; Status DC Oxycodone/ Acetaminophen (Percocet 5/325) 1 tab PRN Q4HRS PRN PO MODERATE PAIN Last administered on 11/03/19at 08:55; Start 10/29/19 at 11:00 Morphine Sulfate (Morphine Sulfate) 2 mg STK-MED ONCE .ROUTE ; Start 10/29/19 at 10:57; Stop 10/29/19 at 10:57; Status DC Piperacillin Sod/ Tazobactam Sod 3.375 gm/Sodium Chloride 50 ml @ 100 mls/hr Q6HRS IV Last administered on 11/04/19at 13:20; Start 10/29/19 at 12:00 Oxycodone/ Acetaminophen (Percocet 5/325) 2 tab PRN Q4HRS PRN PO SEVERE PAIN Last administered on 11/04/19at 13:19; Start 10/29/19 at 11:15 Prochlorperazine Edisylate (Compazine) 10 mg STK-MED ONCE .ROUTE ; Start 10/29/19 at 11:02; Stop 10/29/19 at 11:02; Status DC Hydromorphone HCl (Dilaudid) 2 mg STK-MED ONCE .ROUTE ; Start 10/29/19 at 11:07; Stop 10/29/19 at 11:07; Status DC Lactobacillus Rhamnosus (Culturelle) 1 cap BID PO Last administered on 11/04/19at 08:02; Start 10/30/19 at 21:00 Polyethylene Glycol (miraLAX PACKET) 17 gm PRN DAILY PRN PO CONSTIPATION 1ST CHOICE Last administered on 10/31/19at 07:22; Start 10/31/19 at 06:45 Senna/Docusate Sodium (Senna Plus) 1 tab PRN BID PRN PO CONSTIPATION 2ND CHOICE; Start 10/31/19 at 06:45; Stop 10/31/19 at 07:03; Status DC Senna/Docusate Sodium (Senna Plus) 1 tab BID PO Last administered on 11/03/19at 20:23; Start 10/31/19 at 09:00 Bisacodyl (Dulcolax Supp) 10 mg 1X ONCE MD Last administered on 10/31/19at 09:57; Start 10/31/19 at 08:00; Stop 10/31/19 at 08:01; Status DC Acetaminophen (Tylenol Supp) 650 mg Q4HRS PRN MD MILD PAIN / TEMP > 100.3'F Last administered on 11/01/19at 04:42; Start 10/31/19 at 19:30 Duloxetine HCl (Cymbalta) 30 mg QHS PO Last administered on 11/03/19at 20:23; Start 10/31/19 at 21:00 Iohexol (Omnipaque 300 Mg/ml) 75 ml 1X ONCE IV Last administered on 11/01/19at 10:56; Start 11/01/19 at 10:45; Stop 11/01/19 at 10:46; Status DC Info (CONTRAST GIVEN -- Rx MONITORING) 1 each PRN DAILY PRN MC SEE COMMENTS; Start 11/01/19 at 10:45; Stop 11/03/19 at 10:44; Status DC Midazolam HCl (Versed) 2 mg STK-MED ONCE .ROUTE ; Start 11/01/19 at 13:32; Stop 11/01/19 at 13:33; Status DC Fentanyl Citrate (Fentanyl 2ml Vial) 100 mcg STK-MED ONCE .ROUTE ; Start 11/01/19 at 13:32; Stop 11/01/19 at 13:33; Status DC Lidocaine HCl (Lidocaine 1% 20ml Vial) 20 ml STK-MED ONCE .ROUTE ; Start 11/01/19 at 13:38; Stop 11/01/19 at 13:38; Status DC Midazolam HCl (Versed) 2 mg 1X ONCE IV Last administered on 11/01/19at 14:28; Start 11/01/19 at 14:15; Stop 11/01/19 at 14:16; Status DC Fentanyl Citrate (Fentanyl 2ml Vial) 100 mcg 1X ONCE IV Last administered on 11/01/19at 14:29; Start 11/01/19 at 14:15; Stop 11/01/19 at 14:16; Status DC Lidocaine HCl (Lidocaine 1% 20ml Vial) 20 ml 1X ONCE INJ Last administered on 11/01/19at 14:29; Start 11/01/19 at 14:15; Stop 11/01/19 at 14:16; Status DC Famotidine (Pepcid Vial) 20 mg BID IVP Last administered on 11/04/19at 08:02; Start 11/02/19 at 15:00 Potassium Chloride (Klor-Con) 40 meq 1X ONCE PO Last administered on 11/04/19at 08:03; Start 11/04/19 at 07:30; Stop 11/04/19 at 07:31; Status DC Potassium Chloride (Klor-Con) 20 meq 1X ONCE PO Last administered on 11/04/19at 13:19; Start 11/04/19 at 11:15; Stop 11/04/19 at 11:16; Status DC Potassium Chloride (Klor-Con) 20 meq BID PO ; Start 11/04/19 at 21:00 Active Scripts Active Reported Tylenol (Acetaminophen) 325 Mg Tablet 650 Mg PO PRN Q6HRS PRN [Protein Supplement] [Creatine Supplement] [BCAAs Supplement] Turmeric (Turmeric Root Extract) 538 Mg Capsule 538 Mg PO DAILY Cymbalta (Duloxetine Hcl) 30 Mg Capsule. 1 Cap PO HS [many supplements] [supplements] Vitals/I & O Vital Sign - Last 24 Hours 11/03/19 11/03/19 11/03/19 11/03/19 14:40 15:00 17:34 18:40 Temp 98.4 98.4 Pulse 62 Resp 20 B/P (MAP) 144/88 (106) Pulse Ox 94 O2 Delivery Room Air Room Air Room Air Room Air 11/03/19 11/03/19 11/03/19 11/03/19 19:00 20:00 22:30 23:00 Temp 98.9 99.0 98.9 99.0 Pulse 61 72 Resp 18 20 18 B/P (MAP) 129/73 (91) 123/93 (103) Pulse Ox 94 94 93 O2 Delivery Room Air Room Air Room Air Room Air 11/03/19 11/04/19 11/04/19 11/04/19 23:30 03:00 05:13 06:13 Temp 98.7 98.7 Pulse 72 Resp 18 18 20 B/P (MAP) 133/81 (98) Pulse Ox 93 93 93 O2 Delivery Room Air Room Air Room Air Room Air 11/04/19 11/04/19 11/04/19 11/04/19 07:57 08:03 08:33 09:36 Temp 97.6 97.6 Pulse 70 Resp 18 B/P (MAP) 135/79 (97) Pulse Ox 97 O2 Delivery Room Air Room Air Room Air Room Air 11/04/19 11/04/19 11/04/19 10:36 11:00 13:19 Temp 99.0 99.0 Pulse 67 Resp 20 B/P (MAP) 139/76 (97) Pulse Ox 93 O2 Delivery Room Air Room Air Room Air Intake and Output 11/03/19 11/03/19 11/04/19 15:00 23:00 07:00 Intake Total 1080 ml 100 ml Output Total 40 ml 30 ml Balance 1040 ml 70 ml Justicifation of Admission Dx: Justifications for Admission: Justification of Admission Dx: Yes GERALD VILLATORO MD Nov 04, 2019 14:12
[2019-11-04 15:00] VITALS: BP 153/85
[2019-11-04 19:00] VITALS: BP 137/76
[2019-11-04] MEDS: DULoxetine HCL 30 MG CAPSULE.DR PO SCH (21:26)
[2019-11-04] MEDS: POTASSIUM CHLORIDE 20 MEQ TABLET.ER. PO SCH (21:26)
[2019-11-04] MEDS: FAMOTIDINE 20 MG TABLET. PO SCH (21:37)
[2019-11-04 23:00] VITALS: BP 135/80
[2019-11-05] MEDS: PIPERACILLIN/TAZOBACTAM 3.375 GM in IV NORMAL SALINE 50ML 50 ML IV SCH ×4 (00:03→17:06)
[2019-11-05] MEDS: oxyCODONE/APAP 5/325 1 TAB TABLET PO PRN ×4 (00:03→23:03)
[2019-11-05 03:00] VITALS: BP 110/70
[2019-11-05 04:55] LABS: CALCIUM 8.7 mg/dL (8.5-10.1); CREATININE 0.8 mg/dL (0.6-1.0); GFR 91.1; POTASSIUM 3.5 mmol/L (3.5-5.1)
[2019-11-05 07:00] VITALS: BP 148/86
[2019-11-05] MEDS: SENNOSIDES/DOCUSATE 8.6/50MG TABLET. PO SCH ×2 (08:23→21:35)
[2019-11-05] MEDS: FAMOTIDINE 20 MG TABLET. PO SCH ×2 (08:23→21:35)
[2019-11-05] MEDS: POTASSIUM CHLORIDE 20 MEQ TABLET.ER. PO SCH ×2 (08:24→21:37)
[2019-11-05] MEDS: LACTOBACILLUS RHAMNOSUS GG 1 CAPSULE. PO SCH ×2 (08:24→21:35)
--- NOTE | 2019-11-05 10:08 | PDOC ---
TEODORO MARTIN [employer] 11/05/19 1008: SURGICAL PROGRESS NOTE DATE: 11/05/19 TIME: 10:07 Subjective + stools, flatus mild nausea at times tolerating diet some cramping discomfort intermittently Vital Signs Vital Signs Date Time Temp Pulse Resp B/P (MAP) Pulse Ox O2 Delivery O2 Flow Rate FiO2 11/05/19 07:39 Room Air 11/05/19 07:07 20 95 11/05/19 07:00 98.1 66 148/86 (106) 98.1 I&O Intake and Output 11/05/19 07:00 Intake Total 650 ml Output Total 20 ml Balance 630 ml Intake Oral 650 ml Drainage Total 20 ml # Voids 5 General: Alert, Oriented X3, Cooperative Abdomen: Soft, Other (drain serous) Labs Laboratory Tests Test 11/04/19 05:20 11/04/19 05:25 11/04/19 10:25 11/05/19 04:08 Sodium Level 142 mmol/L (136-145) 142 mmol/L (136-145) Potassium Level 2.7 mmol/L (3.5-5.1) 2.8 mmol/L (3.5-5.1) 3.5 mmol/L (3.5-5.1) Chloride Level 103 mmol/L (98-107) 105 mmol/L (98-107) Carbon Dioxide Level 29 mmol/L (21-32) 29 mmol/L (21-32) Anion Gap 10 (6-14) 8 (6-14) Blood Urea Nitrogen 4 mg/dL (7-20) 5 mg/dL (7-20) Creatinine 0.6 mg/dL (0.6-1.0) 0.8 mg/dL (0.6-1.0) Estimated GFR (Cockcroft-Gault) 127.0 91.1 Glucose Level 85 mg/dL (70-99) 95 mg/dL (70-99) Calcium Level 8.9 mg/dL (8.5-10.1) 8.7 mg/dL (8.5-10.1) White Blood Count 10.5 x10^3/uL (4.0-11.0) Red Blood Count 4.06 x10^6/uL (3.50-5.40) Hemoglobin 11.7 g/dL (12.0-15.5) Hematocrit 34.7 % (36.0-47.0) Mean Corpuscular Volume 86 fL (79-100) Mean Corpuscular Hemoglobin 29 pg (25-35) Mean Corpuscular Hemoglobin Concent 34 g/dL (31-37) Red Cell Distribution Width 13.4 % (11.5-14.5) Platelet Count 347 x10^3/uL (140-400) Neutrophils (%) (Auto) 67 % (31-73) Lymphocytes (%) (Auto) 16 % (24-48) Monocytes (%) (Auto) 15 % (0-9) Eosinophils (%) (Auto) 2 % (0-3) Basophils (%) (Auto) 0 % (0-3) Neutrophils # (Auto) 7.0 x10^3/uL (1.8-7.7) Lymphocytes # (Auto) 1.7 x10^3/uL (1.0-4.8) Monocytes # (Auto) 1.5 x10^3/uL (0.0-1.1) Eosinophils # (Auto) 0.2 x10^3/uL (0.0-0.7) Basophils # (Auto) 0.0 x10^3/uL (0.0-0.2) Laboratory Tests Test 11/04/19 10:25 11/05/19 04:08 Potassium Level 2.8 mmol/L (3.5-5.1) 3.5 mmol/L (3.5-5.1) Sodium Level 142 mmol/L (136-145) Chloride Level 105 mmol/L (98-107) Carbon Dioxide Level 29 mmol/L (21-32) Anion Gap 8 (6-14) Blood Urea Nitrogen 5 mg/dL (7-20) Creatinine 0.8 mg/dL (0.6-1.0) Estimated GFR (Cockcroft-Gault) 91.1 Glucose Level 95 mg/dL (70-99) Calcium Level 8.7 mg/dL (8.5-10.1) Assessment/Plan drain -70cc out yesterday--continue drain soft diet work toward dc soon Justicifation of Admission Dx: Justifications for Admission: Justification of Admission Dx: Yes KASHIF GARDNER MD 11/05/19 1024: SURGICAL PROGRESS NOTE Assessment/Plan Agree with above, discharge planning; could DC with drain on PO abx TEODORO MARTIN APRN Nov 05, 2019 10:08 KASHIF GARDNER MD Nov 05, 2019 10:24
--- NOTE | 2019-11-05 10:25 | NUR ---
SW following. Discussed with RN, pt advanced to GI soft diet. Working towards discharge per surgery note. SW will continue to follow.
[2019-11-05 11:00] VITALS: BP 135/87
--- NOTE | 2019-11-05 12:40 | NUR ---
sitting up in bed. she states that she cant eat at this time she feels full and bloated. denies need for nausea medication at this time
[2019-11-05] MEDS: IV NORMAL SALINE 1000ML BAG 1,000 ML IV SCH (14:17)
[2019-11-05 15:00] VITALS: BP 127/66
--- NOTE | 2019-11-05 17:39 | PDOC ---
PROGRESS NOTES Date of Service: DATE: 11/05/19 TIME: 17:35 Chief Complaint Chief Complaint Appendicitis, ruptured status post laparoscopic appendectomy on 10/30/2019 Postoperative ileus Intra-abdominal abscess Obesity class I sepsis History of Present Illness History of Present Illness HISTORY OF PRESENT ILLNESS: The patient is a pleasant 54-year-old female who presented to the OR with abdominal pain. She initially went to [facility]. They imaged her. She has appendicitis. She has now been transferred to our facility. We have consulted Dr. Bijan Webb 11/02/2019 No acute events overnight. Patient tolerating pigtail drainage. Patient has starting to be passing gas. Patient's chart, labs, images were reviewed and discussed with RN 11/03/2019 Patient states she is tolerating tolerating diet, and has had multiple bowel movement. She is concerned about becoming addicted to pain medications, but I discussed small dosage of narcotics would be beneficial for the treatment of her pain. 11/04/2019 Patient states feeling better today, still some abdominal pain with movement. Pigtail drain in place without much output. Discussed with RN. 11/05/2019 Patient is feeling well today, but still with abdominal pain that is worse with movement. She has concerns about becoming addicted to narcotics medications. Discussed alternate means of pain management, and using narcotic medication when absolutely necessary if she is concerned about addiction. Vitals Vitals Vital Signs Date Time Temp Pulse Resp B/P (MAP) Pulse Ox O2 Delivery O2 Flow Rate FiO2 11/05/19 15:00 97.9 63 18 127/66 (86) 95 Room Air 97.9 Physical Exam Physical Exam GEN: No apparent distress. Alert and oriented HEENT: Normal cephalic, atraumatic, external auditory canals are patent NECK: Supple, no JVD, no thyromegaly was noted LUNGS: Bilateral crackles HEART: RRR, S1, S2 present. Peripheral pulses intact, no obvious murmurs noted ABDOMEN: ` Abdomen is less distended. Dressings are clean dry and intact. Hypoactive bowel sounds EXTREMITIES: Without clubbing, cyanosis, or edema. Pedal pulses intact. N egative Homans sign General: Alert, Oriented X3, Cooperative Heart: Regular rate, Normal S1, Normal S2 Lungs: Clear Abdomen: Soft, Other (drain serous) Extremities: No clubbing, No cyanosis, No edema Skin: No rashes, No breakdown Labs LABS Laboratory Tests Test 11/05/19 04:08 Sodium Level 142 mmol/L (136-145) Potassium Level 3.5 mmol/L (3.5-5.1) Chloride Level 105 mmol/L (98-107) Carbon Dioxide Level 29 mmol/L (21-32) Anion Gap 8 (6-14) Blood Urea Nitrogen 5 mg/dL (7-20) Creatinine 0.8 mg/dL (0.6-1.0) Estimated GFR (Cockcroft-Gault) 91.1 Glucose Level 95 mg/dL (70-99) Calcium Level 8.7 mg/dL (8.5-10.1) Review of Systems Review of Systems Abdominal pain. Denies shortness of breath, denies cough, denies fever. Assessment and Plan Assessmemt and Plan Acute appendicitis, POA Ileus Plan: Nausea, vomiting, constipation resolved. Continue bowel regimen, IV fluids. Limited mobility secondary to pain are barrier to discharge. Comment Review of Relevant I have reviewed the following items sienna (where applicable) has been applied. Labs Laboratory Tests Test 11/04/19 05:20 11/04/19 05:25 11/04/19 10:25 11/05/19 04:08 Sodium Level 142 mmol/L (136-145) 142 mmol/L (136-145) Potassium Level 2.7 mmol/L (3.5-5.1) 2.8 mmol/L (3.5-5.1) 3.5 mmol/L (3.5-5.1) Chloride Level 103 mmol/L (98-107) 105 mmol/L (98-107) Carbon Dioxide Level 29 mmol/L (21-32) 29 mmol/L (21-32) Anion Gap 10 (6-14) 8 (6-14) Blood Urea Nitrogen 4 mg/dL (7-20) 5 mg/dL (7-20) Creatinine 0.6 mg/dL (0.6-1.0) 0.8 mg/dL (0.6-1.0) Estimated GFR (Cockcroft-Gault) 127.0 91.1 Glucose Level 85 mg/dL (70-99) 95 mg/dL (70-99) Calcium Level 8.9 mg/dL (8.5-10.1) 8.7 mg/dL (8.5-10.1) White Blood Count 10.5 x10^3/uL (4.0-11.0) Red Blood Count 4.06 x10^6/uL (3.50-5.40) Hemoglobin 11.7 g/dL (12.0-15.5) Hematocrit 34.7 % (36.0-47.0) Mean Corpuscular Volume 86 fL (79-100) Mean Corpuscular Hemoglobin 29 pg (25-35) Mean Corpuscular Hemoglobin Concent 34 g/dL (31-37) Red Cell Distribution Width 13.4 % (11.5-14.5) Platelet Count 347 x10^3/uL (140-400) Neutrophils (%) (Auto) 67 % (31-73) Lymphocytes (%) (Auto) 16 % (24-48) Monocytes (%) (Auto) 15 % (0-9) Eosinophils (%) (Auto) 2 % (0-3) Basophils (%) (Auto) 0 % (0-3) Neutrophils # (Auto) 7.0 x10^3/uL (1.8-7.7) Lymphocytes # (Auto) 1.7 x10^3/uL (1.0-4.8) Monocytes # (Auto) 1.5 x10^3/uL (0.0-1.1) Eosinophils # (Auto) 0.2 x10^3/uL (0.0-0.7) Basophils # (Auto) 0.0 x10^3/uL (0.0-0.2) Laboratory Tests Test 11/05/19 04:08 Sodium Level 142 mmol/L (136-145) Potassium Level 3.5 mmol/L (3.5-5.1) Chloride Level 105 mmol/L (98-107) Carbon Dioxide Level 29 mmol/L (21-32) Anion Gap 8 (6-14) Blood Urea Nitrogen 5 mg/dL (7-20) Creatinine 0.8 mg/dL (0.6-1.0) Estimated GFR (Cockcroft-Gault) 91.1 Glucose Level 95 mg/dL (70-99) Calcium Level 8.7 mg/dL (8.5-10.1) Microbiology 11/01/19 Gram Stain - Final, Resulted 11/01/19 Aerobic and Anaerobic Culture - Preliminary, Resulted 11/01/19 Antimicrobic Susceptibility - Preliminary, Resulted 11/01/19 Blood Culture - Preliminary, Resulted NO GROWTH AFTER 4 DAYS Medications Current Medications Sodium Chloride (Normal Saline Flush) 3 ml QSHIFT PRN IV AFTER MEDS AND BLOOD DRAWS Last administered on 10/29/19at 00:59; Start 10/29/19 at 00:30 Sodium Chloride 1,000 ml @ 60 mls/hr [id number] IV Last administered on 11/04/19at 21:37; Start 10/29/19 at 00:30 Ondansetron HCl (Zofran) 4 mg PRN Q6HRS PRN IV NAUSEA/VOMITING Last administered on 11/01/19at 21:37; Start 10/29/19 at 00:30 Morphine Sulfate (Morphine Sulfate) 2 mg PRN Q2HR PRN IV PAIN Last administered on 11/04/19at 08:03; Start 10/29/19 at 00:30 Propofol (Diprivan) 200 mg STK-MED ONCE IV ; Start 10/29/19 at 08:08; Stop 10/29/19 at 08:08; Status DC Lidocaine HCl (Lidocaine Pf 2% Vial) 5 ml STK-MED ONCE .ROUTE ; Start 10/29/19 at 08:08; Stop 10/29/19 at 08:08; Status DC Rocuronium [place] (Zemuron) 50 mg STK-MED ONCE .ROUTE ; Start 10/29/19 at 08:08; Stop 10/29/19 at 08:08; Status DC Midazolam HCl (Versed) 2 mg STK-MED ONCE .ROUTE ; Start 10/29/19 at 08:08; Stop 10/29/19 at 08:08; Status DC Fentanyl Citrate (Fentanyl 5ml Vial) 250 mcg STK-MED ONCE .ROUTE ; Start 10/29/19 at 08:09; Stop 10/29/19 at 08:10; Status DC Fentanyl Citrate (Fentanyl 2ml Vial) 100 mcg STK-MED ONCE .ROUTE ; Start at 08:24; Stop 10/29/19 at 08:24; Status DC Fentanyl Citrate (Fentanyl 2ml Vial) 50 mcg PACU PRN PRN IVP PAIN Last admi nistered on 10/29/19at 10:50; Start 10/29/19 at 08:30; Stop 10/29/19 at 20:00; Status DC Ondansetron HCl (Zofran) 4 mg PRN Q6HRS PRN IV NAUSEA/VOMITING; Start 10/29/19 at 09:00; Stop 10/30/19 at 08:59; Status DC Fentanyl Citrate (Fentanyl 2ml Vial) 25 mcg PRN Q5MIN PRN IV MILD PAIN 1-3; Start 10/29/19 at 09:00; Stop 10/30/19 at 08:59; Status DC Fentanyl Citrate (Fentanyl 2ml Vial) 50 mcg PRN Q5MIN PRN IV MODERATE TO SEVERE PAIN; Start 10/29/19 at 09:00; Stop 10/30/19 at 08:59; Status DC Morphine Sulfate (Morphine Sulfate) 1 mg PRN Q10MIN PRN IV SEVERE PAIN 7-10 Last administered on 10/29/19at 11:20; Start 10/29/19 at 09:00; Stop 10/30/19 at 08:59; Status DC Ringer's Solution 1,000 ml @ 30 mls/hr Q24H IV ; Start 10/29/19 at 08:57; Stop 10/29/19 at 20:56; Status DC Hydromorphone HCl (Dilaudid) 0.5 mg PRN Q10MIN PRN IV SEV PAIN, Second choice Last administered on 10/29/19at 11:45; Start 10/29/19 at 09:00; Stop 10/30/19 at 08:59; Status DC Prochlorperazine Edisylate (Compazine) 5 mg PACU PRN PRN IV NAUSEA, MRX1 Last administered on 10/29/19at 10:55; Start 10/29/19 at 09:00; Stop 10/30/19 at 08:59; Status DC Cefazolin Sodium/ Dextrose 50 ml @ 100 mls/hr 1X ONCE IV Last administered on 10/29/19at 09:30; Start 10/29/19 at 09:00; Stop 10/29/19 at 09:29; Status DC Bupivacaine HCl/ Epinephrine Bitart (Sensorcain-Epi 0.5%-1:[id number] Mpf) 30 ml STK-MED ONCE .ROUTE Last administered on 10/29/19at 09:42; Start 10/29/19 at 09:03; Stop 10/29/19 at 09:03; Status DC Neostigmine [place] (Neostigmine Methylsulfate) 5 mg STK-MED ONCE .ROUTE ; Start 10/29/19 at 09:48; Stop 10/29/19 at 09:48; Status DC Glycopyrrolate (Robinul) 1 mg STK-MED ONCE .ROUTE ; Start 10/29/19 at 09:48; Stop 10/29/19 at 09:48; Status DC Phenylephrine HCl (PHENYLEPHRINE in 0.9% NACL PF) 1 mg STK-MED ONCE IV ; Start 10/29/19 at 10:04; Stop 10/29/19 at 10:05; Status DC Sevoflurane (Ultane) 30 ml STK-MED ONCE IH ; Start 10/29/19 at 10:27; Stop 10/29/19 at 10:28; Status DC Oxycodone/ Acetaminophen (Percocet 5/325) 1 tab PRN Q4HRS PRN PO MODERATE PAIN Last administered on 11/03/19at 08:55; Start 10/29/19 at 11:00 Morphine Sulfate (Morphine Sulfate) 2 mg STK-MED ONCE .ROUTE ; Start 10/29/19 at 10:57; Stop 10/29/19 at 10:57; Status DC Piperacillin Sod/ Tazobactam Sod 3.375 gm/Sodium Chloride 50 ml @ 100 mls/hr Q6HRS IV Last administered on 11/05/19at 17:06; Start 10/29/19 at 12:00 Oxycodone/ Acetaminophen (Percocet 5/325) 2 tab PRN Q4HRS PRN PO SEVERE PAIN Last administered on 11/05/19at 11:56; Start 10/29/19 at 11:15 Prochlorperazine Edisylate (Compazine) 10 mg STK-MED ONCE .ROUTE ; Start 10/29/19 at 11:02; Stop 10/29/19 at 11:02; Status DC Hydromorphone HCl (Dilaudid) 2 mg STK-MED ONCE .ROUTE ; Start 10/29/19 at 11:07; Stop 10/29/19 at 11:07; Status DC Lactobacillus Rhamnosus (Culturelle) 1 cap BID PO Last administered on 11/05/19at 08:24; Start 10/30/19 at 21:00 Polyethylene Glycol (miraLAX PACKET) 17 gm PRN DAILY PRN PO CONSTIPATION 1ST CHOICE Last administered on 10/31/19at 07:22; Start 10/31/19 at 06:45 Senna/Docusate Sodium (Senna Plus) 1 tab PRN BID PRN PO CONSTIPATION 2ND CHOICE; Start 10/31/19 at 06:45; Stop 10/31/19 at 07:03; Status DC Senna/Docusate Sodium (Senna Plus) 1 tab BID PO Last administered on 11/05/19at 08:23; Start 10/31/19 at 09:00 Bisacodyl (Dulcolax Supp) 10 mg 1X ONCE MN Last administered on 10/31/19at 09:57; Start 10/31/19 at 08:00; Stop 10/31/19 at 08:01; Status DC Acetaminophen (Tylenol Supp) 650 mg Q4HRS PRN MN MILD PAIN / TEMP > 100.3'F Last administered on 11/01/19at 04:42; Start 10/31/19 at 19:30 Duloxetine HCl (Cymbalta) 30 mg QHS PO Last administered on 11/04/19at 21:26; Start 10/31/19 at 21:00 Iohexol (Omnipaque 300 Mg/ml) 75 ml 1X ONCE IV Last administered on 11/01/19at 10:56; Start 11/01/19 at 10:45; Stop 11/01/19 at 10:46; Status DC Info (CONTRAST GIVEN -- Rx MONITORING) 1 each PRN DAILY PRN MC SEE COMMENTS; Start 11/01/19 at 10:45; Stop 11/03/19 at 10:44; Status DC Midazolam HCl (Versed) 2 mg STK-MED ONCE .ROUTE ; Start 11/01/19 at 13:32; Stop 11/01/19 at 13:33; Status DC Fentanyl Citrate (Fentanyl 2ml Vial) 100 mcg STK-MED ONCE .ROUTE ; Start 11/01/19 at 13:32; Stop 11/01/19 at 13:33; Status DC Lidocaine HCl (Lidocaine 1% 20ml Vial) 20 ml STK-MED ONCE .ROUTE ; Start 11/01/19 at 13:38; Stop 11/01/19 at 13:38; Status DC Midazolam HCl (Versed) 2 mg 1X ONCE IV Last administered on 11/01/19at 14:28; Start 11/01/19 at 14:15; Stop 11/01/19 at 14:16; Status DC Fentanyl Citrate (Fentanyl 2ml Vial) 100 mcg 1X ONCE IV Last administered on 11/01/19at 14:29; Start 11/01/19 at 14:15; Stop 11/01/19 at 14:16; Status DC Lidocaine HCl (Lidocaine 1% 20ml Vial) 20 ml 1X ONCE INJ Last administered on 11/01/19at 14:29; Start 11/01/19 at 14:15; Stop 11/01/19 at 14:16; Status DC Famotidine (Pepcid Vial) 20 mg BID IVP Last administered on 11/04/19at 08:02; Start 11/02/19 at 15:00; Stop 11/04/19 at 20:10; Status DC Potassium Chloride (Klor-Con) 40 meq 1X ONCE PO Last administered on 11/04/19at 08:03; Start 11/04/19 at 07:30; Stop 11/04/19 at 07:31; Status DC Potassium Chloride (Klor-Con) 20 meq 1X ONCE PO Last administered on 11/04/19at 13:19; Start 11/04/19 at 11:15; Stop 11/04/19 at 11:16; Status DC Potassium Chloride (Klor-Con) 20 meq BID PO Last administered on 11/05/19at 08:24; Start 11/04/19 at 21:00 Famotidine (Pepcid) 20 mg BID PO Last administered on 11/05/19at 08:23; Start 11/04/19 at 21:00 Active Scripts Active Reported Tylenol (Acetaminophen) 325 Mg Tablet 650 Mg PO PRN Q6HRS PRN [Protein Supplement] [Creatine Supplement] [BCAAs Supplement] Turmeric (Turmeric Root Extract) 538 Mg Capsule 538 Mg PO DAILY Cymbalta (Duloxetine Hcl) 30 Mg Capsule.dr 1 Cap PO HS [many supplements] [supplements] Vitals/I & O Vital Sign - Last 24 Hours 11/04/19 11/04/19 11/04/19 11/04/19 18:06 19:00 19:06 20:00 Temp 98.6 98.6 Pulse 86 Resp 18 18 B/P (MAP) 137/76 (96) Pulse Ox 96 94 O2 Delivery Room Air Room Air Room Air Room Air 11/04/19 11/05/19 11/05/19 11/05/19 23:00 00:03 01:03 03:00 Temp 98.7 98.9 98.7 98.9 Pulse 70 85 Resp 18 20 18 B/P (MAP) 135/80 (98) 110/70 (83) Pulse Ox 94 94 95 O2 Delivery Room Air Room Air Room Air Room Air 11/05/19 11/05/19 11/05/19 11/05/19 07:00 07:07 07:39 11:00 Temp 98.1 97.9 98.1 97.9 Pulse 66 73 Resp 18 20 18 B/P (MAP) 148/86 (106) 135/87 (103) Pulse Ox 97 95 95 O2 Delivery Room Air Room Air Room Air Room Air 11/05/19 15:00 Temp 97.9 97.9 Pulse 63 Resp 18 B/P (MAP) 127/66 (86) Pulse Ox 95 O2 Delivery Room Air Intake and Output 11/04/19 11/04/19 11/05/19 15:00 23:00 07:00 Intake Total 300 ml 350 ml Output Total 20 ml Balance 300 ml 350 ml -20 ml Justicifation of Admission Dx: Justifications for Admission: Justification of Admission Dx: Yes GERALD VILLATORO MD Nov 05, 2019 17:39
[2019-11-05 19:00] VITALS: BP 140/89
--- NOTE | 2019-11-05 19:20 | NUR ---
ambulating in the hallway with . continues to eat poorly and has slept most of the day. pain has been between 3-6. she mainly complains of feelings of bloating and pressure. No emesis Addendum: 11/05/19 at 1922 by NENO CRUZ RN to take home [facility]
[2019-11-05] MEDS: DULoxetine HCL 30 MG CAPSULE.DR PO SCH (21:35)
[2019-11-05 23:00] VITALS: BP 150/84
[2019-11-06] MEDS: PIPERACILLIN/TAZOBACTAM 3.375 GM in IV NORMAL SALINE 50ML 50 ML IV SCH ×3 (00:11→12:30)
[2019-11-06 03:00] VITALS: BP 137/79
[2019-11-06 07:00] VITALS: BP 157/95
[2019-11-06 08:04] LABS: CALCIUM 9.1 mg/dL (8.5-10.1); CREATININE 0.8 mg/dL (0.6-1.0); GFR 91.1; POTASSIUM 3.4 mmol/L (3.5-5.1)
[2019-11-06] MEDS: SENNOSIDES/DOCUSATE 8.6/50MG TABLET. PO SCH (08:09)
[2019-11-06] MEDS: POTASSIUM CHLORIDE 20 MEQ TABLET.ER. PO SCH (08:09)
[2019-11-06] MEDS: LACTOBACILLUS RHAMNOSUS GG 1 CAPSULE. PO SCH (08:09)
[2019-11-06] MEDS: FAMOTIDINE 20 MG TABLET. PO SCH (08:09)
[2019-11-06] MEDS: ACETAMINOPHEN 325 MG TABLET. PO PRN ×2 (08:17→12:37)
--- NOTE | 2019-11-06 09:37 | PDOC ---
[employer] PROGRESS NOTE Date of Service DOS: DATE: 11/06/19 TIME: 09:37 Chief Complaint Chief Complaint Appendicitis, ruptured status post laparoscopic appendectomy on 10/30/2019 Postoperative ileus Intra-abdominal abscess Obesity class I sepsis History of Present Illness History of Present Illness Ms Sadler is a 54-year-old female who presented to the ED with abdominal pain. She initially went to [facility]. They imaged her. She has appendicitis. She has now been transferred to our facility. We have consulted Dr. Bijan Webb 11/02/2019 No acute events overnight. Patient tolerating pigtail drainage. Patient has starting to be passing gas. Patient's chart, labs, images were reviewed and discussed with RN 11/03/2019 Patient states she is tolerating tolerating diet, and has had multiple bowel movement. She is concerned about becoming addicted to pain medications, but I discussed small dosage of narcotics would be beneficial for the treatment of her pain. 11/04/2019 Patient states feeling better today, still some abdominal pain with movement. Pigtail drain in place without much output. Discussed with RN. 11/05/2019 Patient is feeling well today, but still with abdominal pain that is worse with movement. She has concerns about becoming addicted to narcotics medications. Discussed alternate means of pain management, and using narcotic medication when absolutely necessary if she is concerned about addiction. Afebrile. Still with HANG drain in place with less than 30 cc of red-tinged or sanguinous fluid. Plan is for HANG drain to go home and have teaching prior to discharge. No chest pain or shortness of breath no lower extremity pain or edema. She is not to get up with physical therapy helped her with abdominal binder prior to this. Vitals/I&O Vitals/I&O: Vital Signs Date Time Temp Pulse Resp B/P (MAP) Pulse Ox O2 Delivery O2 Flow Rate FiO2 11/06/19 07:00 98.2 72 18 157/95 (115) 94 Room Air 98.2 11/05/19 23:00 2.0 I & O 11/05/19 11/05/19 11/06/19 14:59 22:59 06:59 Intake Total 200 ml Balance 200 ml Physical Exam Physical Exam: GEN: No apparent distress. Alert and oriented HEENT: Normal cephalic, atraumatic, external auditory canals are patent NECK: Supple, no JVD, no thyromegaly was noted LUNGS: Bilateral crackles HEART: RRR, S1, S2 present. Peripheral pulses intact, no obvious murmurs noted ABDOMEN: ` Abdomen is less distended. Dressings are clean dry and intact. Hypoactive bowel sounds EXTREMITIES: Without clubbing, cyanosis, or edema. Pedal pulses intact. Negative Homans sign General: Alert, Oriented X3, Cooperative Heart: Regular rate, Normal S1, Normal S2 Lungs: Clear Abdomen: Soft, Other (drain serous) Extremities: No clubbing, No cyanosis, No edema Skin: No rashes, No breakdown Labs Labs: Laboratory Tests Test 11/06/19 07:25 Sodium Level 141 mmol/L (136-145) Potassium Level 3.4 mmol/L (3.5-5.1) Chloride Level 103 mmol/L (98-107) Carbon Dioxide Level 26 mmol/L (21-32) Anion Gap 12 (6-14) Blood Urea Nitrogen 5 mg/dL (7-20) Creatinine 0.8 mg/dL (0.6-1.0) Estimated GFR (Cockcroft-Gault) 91.1 Glucose Level 95 mg/dL (70-99) Calcium Level 9.1 mg/dL (8.5-10.1) Comment Review of Relevant I have reviewed the following items sienna (where applicable) has been applied. Medications: Current Medications Medications (Trade) Dose Ordered Sig/Kyle Route PRN Reason Start Time Stop Time Status Last Admin Dose Admin Acetaminophen (Tylenol) 650 mg PRN Q6HRS PRN PO pain 11/06/19 08:15 11/06/19 08:17 Justifications for Admission Other Justification XI VERDIN MD Nov 06, 2019 09:37
--- NOTE | 2019-11-06 09:43 | PDOC ---
TEODORO MARTIN [employer]FORM[employer] 11/06/19 0943: SURGICAL PROGRESS NOTE DATE: 11/06/19 TIME: 09:42 Subjective tolerating diet pain improving some pain with stools eating Vital Signs Vital Signs Date Time Temp Pulse Resp B/P (MAP) Pulse Ox O2 Delivery O2 Flow Rate FiO2 11/06/19 07:00 98.2 72 18 157/95 (115) 94 Room Air 98.2 11/05/19 23:00 2.0 I&O Intake and Output 11/06/19 07:00 Intake Total 200 ml Balance 200 ml Intake Oral 200 ml # Voids 2 # Bowel Movements 1 General: Alert, Oriented X3, Cooperative Abdomen: Soft, Other (ND, lap sites c/d/i, no erythema, drain serocloudy ) Labs Laboratory Tests Test 11/04/19 10:25 11/05/19 04:08 11/06/19 07:25 Potassium Level 2.8 mmol/L (3.5-5.1) 3.5 mmol/L (3.5-5.1) 3.4 mmol/L (3.5-5.1) Sodium Level 142 mmol/L (136-145) 141 mmol/L (136-145) Chloride Level 105 mmol/L (98-107) 103 mmol/L (98-107) Carbon Dioxide Level 29 mmol/L (21-32) 26 mmol/L (21-32) Anion Gap 8 (6-14) 12 (6-14) Blood Urea Nitrogen 5 mg/dL (7-20) 5 mg/dL (7-20) Creatinine 0.8 mg/dL (0.6-1.0) 0.8 mg/dL (0.6-1.0) Estimated GFR (Cockcroft-Gault) 91.1 91.1 Glucose Level 95 mg/dL (70-99) 95 mg/dL (70-99) Calcium Level 8.7 mg/dL (8.5-10.1) 9.1 mg/dL (8.5-10.1) Laboratory Tests Test 11/06/19 07:25 Sodium Level 141 mmol/L (136-145) Potassium Level 3.4 mmol/L (3.5-5.1) Chloride Level 103 mmol/L (98-107) Carbon Dioxide Level 26 mmol/L (21-32) Anion Gap 12 (6-14) Blood Urea Nitrogen 5 mg/dL (7-20) Creatinine 0.8 mg/dL (0.6-1.0) Estimated GFR (Cockcroft-Gault) 91.1 Glucose Level 95 mg/dL (70-99) Calcium Level 9.1 mg/dL (8.5-10.1) Assessment/Plan ok to dc home with drain and oral abx FU with Dr Webb next week Justicifation of Admission Dx: Justifications for Admission: Justification of Admission Dx: Yes MASHA PHAM MD 11/06/19 1411: SURGICAL PROGRESS NOTE Assessment/Plan Agree with Hansa assessment and plan TEODORO MARTIN APRN Nov 06, 2019 09:43 MASHA PHAM MD Nov 06, 2019 14:11
--- NOTE | 2019-11-06 09:48 | NUR ---
SW following. Discussed with RN, pt from home with , room air, GI soft. RN advised no SW needs. Anticipate discharge home in the next day or two. SW will continue to follow, should any discharge needs arise.
[2019-11-06] MEDS ORDERED: AMOX1TAB61 PO (09:50)
--- NOTE | 2019-11-06 10:00 | NUR ---
Ambulating hallways with IV pole. Steady gait. No c/o at this time.
[2019-11-06 11:00] VITALS: BP 130/85
[2019-11-06] MEDS ORDERED: POTA20TA4 PO (11:40)
[2019-11-06] MEDS ORDERED: OXYC1TAB15 PO (11:41)
--- NOTE | 2019-11-06 11:48 | PDOC3 ---
Discharge Summary Visit Information Date of Admission: Oct 28, 2019 Date of Discharge: Nov 06, 2019 Admitting Diagnosis: Acute ruptured appendicitis Final Diagnosis Perforated appendicitis Brief Hospital Course Allergies Allergies Coded Allergies Type Severity Reaction Last Updated Verified meloxicam Allergy Severe Swelling 10/30/19 Yes sulfamethoxazole Allergy Intermediate Hives 10/30/19 Yes trimethoprim Allergy Intermediate Hives 10/30/19 Yes Vital Signs Vital Signs Date Time Temp Pulse Resp B/P (MAP) Pulse Ox O2 Delivery O2 Flow Rate FiO2 11/06/19 11:00 98.2 72 18 130/85 (100) 95 Room Air 98.2 11/05/19 23:00 2.0 Lab Results Laboratory Tests Test 11/05/19 04:08 11/06/19 07:25 Sodium Level 142 mmol/L (136-145) 141 mmol/L (136-145) Potassium Level 3.5 mmol/L (3.5-5.1) 3.4 mmol/L (3.5-5.1) Chloride Level 105 mmol/L (98-107) 103 mmol/L (98-107) Carbon Dioxide Level 29 mmol/L (21-32) 26 mmol/L (21-32) Anion Gap 8 (6-14) 12 (6-14) Blood Urea Nitrogen 5 mg/dL (7-20) 5 mg/dL (7-20) Creatinine 0.8 mg/dL (0.6-1.0) 0.8 mg/dL (0.6-1.0) Estimated GFR (Cockcroft-Gault) 91.1 91.1 Glucose Level 95 mg/dL (70-99) 95 mg/dL (70-99) Calcium Level 8.7 mg/dL (8.5-10.1) 9.1 mg/dL (8.5-10.1) Laboratory Tests Test 11/06/19 07:25 Sodium Level 141 mmol/L (136-145) Potassium Level 3.4 mmol/L (3.5-5.1) Chloride Level 103 mmol/L (98-107) Carbon Dioxide Level 26 mmol/L (21-32) Anion Gap 12 (6-14) Blood Urea Nitrogen 5 mg/dL (7-20) Creatinine 0.8 mg/dL (0.6-1.0) Estimated GFR (Cockcroft-Gault) 91.1 Glucose Level 95 mg/dL (70-99) Calcium Level 9.1 mg/dL (8.5-10.1) Brief Hospital Course Ms Sadler is a 54-year-old female who presented to the ED with abdominal pain. She initially went to [facility]. They imaged her. She has appendicitis. She has now been transferred to our facility. We have consulted Dr. Bijan Webb 11/02/2019 No acute events overnight. Patient tolerating pigtail drainage. Patient has starting to be passing gas. Patient's chart, labs, images were reviewed and discussed with RN 11/03/2019 Patient states she is tolerating tolerating diet, and has had multiple bowel movement. She is concerned about becoming addicted to pain medications, but I discussed small dosage of narcotics would be beneficial for the treatment of her pain. 11/04/2019 Patient states feeling better today, still some abdominal pain with movement. Pigtail drain in place without much output. Discussed with RN. 11/05/2019 Patient is feeling well today, but still with abdominal pain that is worse with movement. She has concerns about becoming addicted to narcotics medications. Discussed alternate means of pain management, and using narcotic medication when absolutely necessary if she is concerned about addiction. Afebrile. Still with HANG drain in place with less than 30 cc of red-tinged or sanguinous fluid. Plan is for HANG drain to go home and have teaching prior to discharge. No chest pain or shortness of breath no lower extremity pain or edema. She is not to get up with physical therapy helped her with abdominal binder prior to this. Problem list: Appendicitis, ruptured status post laparoscopic appendectomy on 10/30/2019 Postoperative ileus Intra-abdominal abscess Obesity class I Sepsis Discharge Information Condition at Discharge: Improved Follow Up: Weeks (1) Disposition/Orders: D/C to Home Scheduled Amoxicillin/Potassium Clav (Augmentin 875-125 Tablet) 1 Each Tablet, 1 TAB PO BID for infection for 10 Days, #20 Ref 0 Prescribed by: Kavita Russell on 11/06/19 0950 Duloxetine Hcl (Cymbalta) 30 Mg Capsule., 1 CAP PO HS for Depression, #30 Ref 5 (Reported) Entered as Reported by: SUE LEWIS on 10/29/19251 Last Action: New Order on 10/29/19251 by SUE JOSHUA Potassium Chloride (Klor-Con M20) 20 Meq Tab.er.prt, 20 MEQ PO BID for Hypokalemia for 3 Days, #6 Prescribed by: XI VERDIN MD on 11/06/19 1140 Turmeric Root Extract (Turmeric) 538 Mg Capsule, 538 MG PO DAILY for supplement, (Reported) Entered as Reported by: SUE LEWIS on 10/29/19251 Last Action: New Order on 10/29/19251 by SUE LEWIS Scheduled PRN Acetaminophen (Tylenol) 325 Mg Tablet, 650 MG PO PRN Q6HRS PRN for PAIN, (Reported) Entered as Reported by: SUE LEWIS on 10/29/19251 Last Action: New Order on 10/29/19251 by SUE LEWIS Oxycodone/Apap 5-325 (Percocet 5-325 Mg Tablet ) 1 Each Tablet, 1 TAB PO PRN Q4HRS PRN for MODERATE PAIN for 6 Days, #15 Prescribed by: XI VERDIN MD on 11/06/19 1141 Miscellaneous Medications [BCAAs Supplement] , (Reported) Entered as Reported by: SUE LEWIS on 10/29/19251 Last Action: New Order on 10/29/19251 by SUE LEWIS [Creatine Supplement] , (Reported) Entered as Reported by: SUE LEWIS on 10/29/19251 Last Action: New Order on 10/29/19251 by SUE LEWIS [Protein Supplement] , (Reported) Entered as Reported by: SUE LEWIS on 10/29/19251 Last Action: New Order on 10/29/19251 by SUE LEWIS [many supplements] , (Reported) Entered as Reported by: DENNISE ÁLVAREZ on 01/02/17 1445 [supplements] , (Reported) Entered as Reported by: DENNISE ÁLVAREZ on 01/02/17 144 Justicifation of Admission Dx: Justifications for Admission: Justification of Admission Dx: Yes XI VERDIN MD Nov 06, 2019 11:48
--- NOTE | 2019-11-06 14:20 | NUR ---
Discharged instructions given with prescription. Answered questions and concerns. Verbalized understanding. Instructed and demonstrated how to flush HANG drain with 10cc NS. Supplies given. Pt will follow up on SundayNov [address] Webb. Pt discharged home accompanied by spouse. Escorted out by w/c.
== END 2019-11-06 14:20 | disposition home or self-care (01) | DRG 853 ==
LOC: 4 NORTH 23:35
PROVIDERS: ADMIT Internal Medicine; ATTEND Internal Medicine
PROC: 0DTJ4ZZ Resection of Appendix, Percutaneous Endoscopic Approach (ICD-10-PCS; principal; 2019-10-29 09:15)
PROC: 0W9J3ZZ Drainage of Pelvic Cavity, Percutaneous Approach (ICD-10-PCS; 2019-11-01)
DX: A41.9 Sepsis, unspecified organism (principal); K35.32 Acute appendicitis with perforation, localized peritonitis, and gangrene, without abscess; K65.1 Peritoneal abscess; K56.7 Ileus, unspecified; F41.9 Anxiety disorder, unspecified; E66.01 Morbid (severe) obesity due to excess calories; Z83.3 Family history of diabetes mellitus; Z68.30 Body mass index [BMI] 30.0-30.9, adult; Z98.891 History of uterine scar from previous surgery; Z88.6 Allergy status to analgesic agent; Z88.1 Allergy status to other antibiotic agents; Z88.2 Allergy status to sulfonamides; Z20.828 Contact with and (suspected) exposure to other viral communicable diseases
CPT/HCPCS: 36415; 49406; 74018; 74177; 80048; 80053; 83605; 83735; 84132; 85007; 85025; 87040; 87071; 87075; 87076; 87077; 87186; 87426; 88304; 99152; 99153; A7015; C1729; C1769; C1894; J0690; J0780; J1170; J2250; J2270; J2370; J2405; J2543; J2704; J2710; J3010; J3490; J7030; Q9967; 97116-GP; 97530-GP; 97535-GO; G0378; U0003-CS